=== PATIENT | male | born 1975 | race African-American/Black ===

== ENCOUNTER 2016-07-08 14:05 | Emergency (ER) | payer MEDICAID ==
[~2016-07-08] VITALS: Ht 180.3 cm; Wt 113.4 kg
[~2016-07-08 14:05] MED LIST: AC325T; AC325T PO; ACIDOPHILUS100 MG PO; ALBU2.5V4 IH; ALPR.5T; AMLO1CAP; AMLO1TAB15; ARIP15TA; ARIP15TA PO; ASP81CT PO; BNZ20T; CALC667T2 PO; CETI10TA20 PO; CLN.1T PO; CLOP75TA; CLOT15CR6; CLOT15CR6 TOP; CODE1CAP20; CYCL10TA9; CYCL5TAB11 PO; FLUT9.9S NS; HYDR1CAP2 PO; HYDR50TA76; IRON150C; LACT1CAP45; LANT1000 PO; LISI40TA; LOPE2CAP; LORA0.5T34 PO; LSNP20T PO; MAG-5; MAG-5 PO; METO-354 PO; METO50TA2 PO; MINO10TA; MTP100TCR; PHEN118S12 PO; PRM25T PO; PROP1TAB77; RPN.25T PO; RT-ALBUINH IH; SENSIPAR; SEVE800T7; SODI113P; TOPI100T; TOPI100T PO; TRM50T PO; VENL50TA; VENL50TA PO; [UNRECOGNIZED DRUG - CODE] PO; [UNRECOGNIZED DRUG - CODE] TP; sensipar PO
--- OUTSIDE RECORDS SUMMARY | 2016-07-08 14:11 | XMS REPORT ---
Author Author AUGIE HOWE eClinical[employer] Address Unknown Phone Unavailable Care Team Providers Care Marble Installer Name Role Phone AUGIE HOWE CP Unavailable Allergies, Adverse Reactions, Alerts Substance Reaction Event Type sulfa drugs Info Not Available Drug Allergy Chocolate Info Not Available Non Drug Allergy Problems Problem Type Condition Code Onset Dates Condition Status Assessment Dental examination Z01.20 Active Problem Encounter for dental examination Z01.20 Active Medications Medication Code System Code Instructions Start Date End Date Status Dosage Sodium Bicarbonate [facility] [address]-32 650 MG Orally Three times a day 1 tablet Effexor NDC 0 not defined Ventolin HFA [facility] [address]-93 108 (90 Base) MCG/ACT Inhalation every 4 hrs 2 puffs as needed Flonase NDC 0 not defined Ultram [facility] [address]-34 50 MG Orally every 6 hrs 1 tablet as needed Reglan [facility] [address]-29 10 MG Orally not defined Zestril [facility] [address]-98 20 MG Orally Once a day 1 tablet Proventil NDC 0 not defined Ativan [facility] [address]-08 0.5 MG Orally every 6 hrs 1 tablet as needed Kayexalate [facility] [address]-04 Orally not defined Calcium Acetate (Phos Binder) [facility] [address]-54 667 MG Orally Three times a day 2 tablets with meals Acidophilus [facility] 78312-[address]32 Orally not defined Aspirin Adult Low Dose [facility] [address]-68 81 MG Orally Once a day 1 tablet Abilify [facility] [address]-94 15 MG Orally Once a day 1 tablet Fosrenol [facility] [address]-31 1000 MG Orally Twice a day 1 tablet with meals Topamax [facility] [address]-78 100 MG Orally Twice a day 1 tablet Lopressor [facility] [address]-49 100 MG Orally Twice a day 1 tablet Sensipar [facility] [address]-05 60 MG Orally Once a day 1 tablet after a meal with food ZyrTEC NDC 0 not defined Amoxicillin [facility] [address]-23 500 MG Orally Once a day 4 capsules one time Requip [facility] [address]-88 0.25 MG Orally Once a day 1 tablet 1 to 3 hours before bedtime Procedures Procedure Coding System Code Date Billing Notes on claim CPT-4 EC109 Apr 28, 2015 Results No Known Results Summary Purpose eClinicalWorks Submission
[2016-07-08 14:25] LABS: BASOPHILS # (AUTO) 0.1 10^3/uL (0.0-0.1); BASOPHILS % (AUTO) 1 % (0-10); EOSINOPHILS # (AUTO) 0.4 10^3/uL (0.0-0.3); EOSINOPHILS % (AUTO) 4 % (0-10); LYMPHOCYTES # (AUTO) 1.3 X 10^3 (1.0-4.0); LYMPHOCYTES % (AUTO) 13 % (12-44); MEAN CORPUSCULAR HEMOGLOBIN 27 PG (25-34); MEAN CORPUSCULAR HGB CONC 32 G/DL (32-36); MEAN CORPUSCULAR VOLUME 82 FL (80-99); MEAN PLATELET VOLUME 11.4 FL (7.4-10.4); MONOCYTES % (AUTO) 10 % (0-12); NEUTROPHILS # (AUTO) 7.2 X 10^3 (1.8-7.8); NEUTROPHILS % (AUTO) 72 % (42-75); PLATELET COUNT 312 10^3/uL (130-400); RED BLOOD COUNT 3.66 10^6/uL (4.35-5.85); RED CELL DISTRIBUTION WIDTH 14.9 % (10.0-14.5)
--- NOTE | 2016-07-08 14:34 | ED General ---
General Chief Complaint: Catheter/Drain/Tube Problems Stated Complaint: DIALYSIS SHUNT Nursing Triage Note: PT HERE WITH C/O L UPPER ARM DIALYSIS PORT COMING OUT WHILE COUGHING AND HAVING A HARD TIME GETTING BLEEDING TO STOP. EMS REPORTS APPROX 125ML BLOOD LOSS. PT IS NO LONGER BLEEDING. Nursing Sepsis Screen: No Definite Risk Source of Information: Patient, EMS Exam Limitations: No Limitations History of Present Illness Time Seen by Provider: 14:27 Initial Comments The patient is a 41-year-old black male resident of [place]. He is on chronic renal dialysis. He dialyzed this morning and had returned to the facility. He has had a cough and apparently after a coughing fit developed bleeding from the fistula puncture site. It was said that they had a difficult time controlling the bleeding. They estimated the blood to be as much as 150 mL. On arrival by ambulance there is dried blood on the arm and the dressing but no active bleeding. Timing/Duration: 1 Hour Associated Systoms: Weakness Allergies and Home Medications Allergies Coded Allergies: Milk Products (Unverified Allergy, Mild, 07/12/09) Sulfamethoxazole (Unverified Allergy, Mild, 07/12/09) Trimethoprim (Unverified Allergy, Mild, 07/12/09) NKANo Known Allergies (Verified Allergy, Unknown, 10/01/05) Uncoded Allergies: [id number] (CHOCOLATE FLAVOR) (Allergy, Mild, 07/12/09) Home Medications 120 MG PO DAILY (Reported) Acetaminophen 325 Mg Tab 650 MG PO Q6H PRN PRN (Reported) Albuterol Sulfate 1 Puff Puff 2 PUFF IH TID (Reported) Albuterol Sulfate 0.83 Mg/Ml Solution 0.83 MG IH TID PRN PRN (Reported) Aripiprazole 15 Mg Tab 1 TAB PO DAILY (Reported) DAILY Aspirin 81 Mg Chew 81 MG PO DAILY (Reported) Calcium Acetate 667 Mg Tablet 2,668 MG PO AC (Reported) Calcium Acetate 667 Mg Tablet 1,334 MG PO DAILY (Reported) Cetirizine HCl 10 Mg Tablet 10 MG PO HS PRN PRN ITCHING (Reported) Fluticasone Propionate 9.9 Ml [place].susp 9.9 ML NS PRN (Reported) Lactobacillus Acidophilus 100 Mg Capsule 100 MG PO DAILY (Reported) Lanthanum Carbonate 1,000 Mg Tab.chew 1,000 MG PO TID (Reported) Lisinopril 20 Mg Tab 20 MG PO HS (Reported) Lorazepam 0.5 Mg Tablet 0.5 MG PO BID (Reported) Mag Hydrox/Al Hydrox/Simeth 355 Ml Oral.susp 20 ML PO Q6H PRN PRN (Reported) Menthol/Zinc Oxide 283 Gm Powder 283 GM TP (Reported) Metoclopramide Hcl 10 Mg Tab 1 EACH PO BID (Reported) Metoprolol Tartrate 50 Mg Tablet 50 MG PO DAILY (Reported) Ropinirole Hcl 0.25 Mg Tab #30 1 TAB PO HS (Reported) Sodium Bicarbonate 1 Meq/1 Ml Disp.syrin 650 MG PO BID (Reported) Topiramate 100 Mg Tab 100 MG PO TID (Reported) Tramadol Hcl 50 Mg Tab 50 MG PO BID (Reported) Venlafaxine Hcl 50 Mg Tablet 0.5 EACH PO BID (Reported) Constitutional: see HPI EENTM: no symptoms reported Respiratory: no symptoms reported Cardiovascular: no symptoms reported Gastrointestinal: no symptoms reported Genitourinary: no symptoms reported Musculoskeletal: no symptoms reported Skin: no symptoms reported Psychiatric/Neurological: No Symptoms Reported Hematologic/Lymphatic: No Symptoms Reported Immunological/Allergic: no symptoms reported Past Gblcefv-Rylbhr-Ypcuag Hx Patient Social History Recent Foreign Travel: No Contact w/Someone Who Travel: No Recent Infectious Disease Expo: No Recent Hopitalizations: No Immunizations Up To Date Tetanus Booster (TDap): Less than 5yrs Seasonal Allergies Seasonal Allergies: No Surgeries HX Surgeries: Yes (MULTIPLE SURGERIES TO LEFT ARM FOR DIALYSIS GRAFTS, MOST RECENTLY 09/08/15) Surgeries: Arteriovenous Shunt, Dialysis, Vascular Surgery Respiratory Hx Respiratory Disorders: No Cardiovascular Hx Cardiac Disorders: Yes Cardiac Disorders: Hypertension Neurological Hx Neurological Disorders: Yes Neurological Disorders: Seizure Disorder Reproductive System Hx Reproductive Disorders: No Sexually Transmitted Disease: No HIV/AIDS: No Genitourinary Hx Genitourinary Disorders: Yes Genitourinary Disorders: Renal Failure, Dialysis Gastrointestinal Hx Gastrointestinal Disorders: Yes (GASTROPARESIS?) Musculoskeletal Hx Musculoskeletal Disorders: No Endocrine Hx Endocrine Disorders: Yes Endocrine Disorders: Diabetes, Non-Insulin dep HEENT HX ENT Disorders: No Cancer Hx Cancer: No Psychosocial Hx Psychiatric Problems: Yes (intermittent explosive disorder) Behavioral Health Disorders: Schizophrenia, Violent Behavior Integumentary HX Skin/Integumentary Disorder: No Blood Transfusions Hx Blood Disorders: No Adverse Reaction to a Blood Tr: No Physical Exam Vital Signs Vital Sign - Last 12Hours 07/08/16 14:06 Temp 98.8 Pulse 97 Resp 18 B/P 93/58 Pulse Ox 97 O2 Delivery Room Air Capillary Refill : Less Than 3 Seconds General Appearance: No Apparent Distress WD/WN Eyes: Bilateral Eye Normal Inspection HEENT: Normal ENT Inspection Neck: Normal Inspection Respiratory: Chest Non Tender Lungs Clear Normal Breath Sounds No Accessory Muscle Use No Respiratory Distress Cardiovascular: Regular Rate, Rhythm No Edema No Gallop No JVD No Murmur Normal Peripheral Pulses Gastrointestinal: Normal Bowel Sounds No Organomegaly No Pulsatile Mass Non Tender Soft Comments The dressing was removed and the left upper arm was examined. It appears that he has a more considerable length of fistula than that of which I am accustomed. In the upper pole in a horizontal reach across the upper biceps a small thrombus was noted at which I would interpret to be the puncture site. There is no evidence of bleeding at this time. The dressing itself had blood in it and the ulnar forearm had blood which was dried. Focused Exam Lactic Acid Level Laboratory Tests Test 07/08/16 14:15 Alanine Aminotransferase (ALT/SGPT) 14U/L (0-55) Albumin 3.7G/DL (3.2-4.5) Alkaline Phosphatase 96U/L (40-136) Anion Gap 16MMOL/L (5-14) H Aspartate Amino Transf (AST/SGOT) 15U/L (5-34) BUN/Creatinine Ratio 4 Blood Urea Nitrogen 24MG/DL (7-18) H Calcium Level 8.5MG/DL (8.5-10.1) Carbon Dioxide Level 28MMOL/L (21-32) Chloride Level 93MMOL/L (98-107) L Creatinine 5.89MG/DL (0.60-1.30) H Estimat Glomerular Filtration Rate 13 Glucose Level 92MG/DL (70-105) Potassium Level 2.9MMOL/L (3.6-5.0) L Sodium Level 137MMOL/L (135-145) Total Bilirubin 0.5MG/DL (0.1-1.0) Total Protein 7.8G/DL (6.4-8.2) Progress/Results/Core Measures Results/Orders Lab Results Laboratory Tests Test 07/08/16 14:15 Range/Units Alanine Aminotransferase (ALT/SGPT) 14 0-55 U/L Albumin 3.7 3.2-4.5 G/DL Alkaline Phosphatase 96 40-136 U/L Anion Gap 16 H 5-14 MMOL/L Aspartate Amino Transf (AST/SGOT) 15 5-34 U/L BUN/Creatinine Ratio 4 Basophils # (Auto) 0.1 0.0-0.1 10^3/uL Basophils (%) (Auto) 1 0-10 % Blood Urea Nitrogen 24 H 7-18 MG/DL Calcium Level 8.5 8.5-10.1 MG/DL Carbon Dioxide Level 28 21-32 MMOL/L Chloride Level 93 L 98-107 MMOL/L Creatinine 5.89 H 0.60-1.30 MG/DL Eosinophils # (Auto) 0.4 H 0.0-0.3 10^3/uL Eosinophils (%) (Auto) 4 0-10 % Estimat Glomerular Filtration Rate 13 Glucose Level 92 70-105 MG/DL Hematocrit 30 L 40-54 % Hemoglobin 9.7 L 13.3-17.7 G/DL Lymphocytes # (Auto) 1.3 1.0-4.0 X 10^3 Lymphocytes (%) (Auto) 13 12-44 % Mean Corpuscular Hemoglobin 27 25-34 PG Mean Corpuscular Hemoglobin Concent 32 32-36 G/DL Mean Corpuscular Volume 82 80-99 FL Mean Platelet Volume 11.4 H 7.4-10.4 FL Monocytes # (Auto) 1.0 0.0-1.0 X 10^3 Monocytes (%) (Auto) 10 0-12 % Neutrophils # (Auto) 7.2 1.8-7.8 X 10^3 Neutrophils (%) (Auto) 72 42-75 % Platelet Count 312 130-400 10^3/uL Potassium Level 2.9 L 3.6-5.0 MMOL/L Red Blood Count 3.66 L 4.35-5.85 10^6/uL Red Cell Distribution Width 14.9 H 10.0-14.5 % Sodium Level 137 135-145 MMOL/L Total Bilirubin 0.5 0.1-1.0 MG/DL Total Protein 7.8 6.4-8.2 G/DL White Blood Count 10.0 4.3-11.0 10^3/uL My Orders Orders-SAM SIMON MD Cbc With Automated Diff (07/08/16 14:19) Comprehensive Metabolic Panel (07/08/16 14:19) Chest 1 View, Ap/Pa Only (07/08/16 14:19) Vital Signs/I&O Vital Sign - Last 12Hours 07/08/16 14:06 Temp 98.8 Pulse 97 Resp 18 B/P 93/58 Pulse Ox 97 O2 Delivery Room Air Blood Pressure Mean: 70 Departure Impression Impression: Primary Impression: postdialysis bleeding from fistula puncture site Disposition: HOME, SELF-CARE Condition: Improved Departure-Patient Inst. Decision time for Depature: 15:12 Referrals: LESLIE CARSON MD (PCP/Family) Primary Care Physician Add. Discharge Instructions: All discharge instructions reviewed with patient and/or family. Voiced understanding. If bleeding recurs place a pressure dressing which is to say a gauze pad and either an Roscoe wrap or COBAN for compression SAM SIMON MD Jul 08, 2016 14:34
[2016-07-08 14:43] LABS: ALBUMIN 3.7 G/DL (3.2-4.5); BILIRUBIN,TOTAL 0.5 MG/DL (0.1-1.0); CALCIUM 8.5 MG/DL (8.5-10.1); CREATININE SERUM 5.89 MG/DL (0.60-1.30); POTASSIUM 2.9 MMOL/L (3.6-5.0); TOTAL PROTEIN 7.8 G/DL (6.4-8.2)
--- NOTE | 2016-07-08 14:54 | Diagnostic Imaging Report ---
INDICATION: Cough. Frontal chest obtained at 2:41 p.m. FINDINGS: Heart and mediastinal silhouette are normal in appearance. The lungs are clear. There is no pneumothorax or pleural fluid. IMPRESSION: Negative chest. Dictated by: Dictated on workstation # [id number]
[2016-07-08 15:22] VITALS: BP 93/58
== END 2016-07-08 15:18 | disposition home or self-care (01) ==
LOC: EDUNIT# 14:05 → ER 14:06
DX: T82.838A Hemorrhage due to vascular prosthetic devices, implants and grafts, initial encounter (principal); I12.0 Hypertensive chronic kidney disease with stage 5 chronic kidney disease or end stage renal disease; N18.6 End stage renal disease; Z99.2 Dependence on renal dialysis; E11.9 Type 2 diabetes mellitus without complications; Z79.899 Other long term (current) drug therapy
CPT/HCPCS: 36415; 71010; 80053; 85025; 99285

== ENCOUNTER → 2017-04-05 | Outpatient (CLI) | payer MEDICAID ==
[~2017-04-05] MED LIST changes: +METO50TA15 PO; -METO50TA2 PO
--- NOTE | 2017-04-05 16:47 | Diagnostic Imaging Report ---
Indication: Left great toe injury 3 views of the left great toe show a nondisplaced fracture of the corner of the base of the proximal phalanx on the medial side. The remainder of the foot is unremarkable. Impression: Nondisplaced corner fracture on the medial base of the proximal phalanx of the left big toe. Dictated by: Dictated on workstation # [id number]
== END ==
LOC: RAD 15:55
PROVIDERS: ATTEND Family Medicine
DX: S92.415A Nondisplaced fracture of proximal phalanx of left great toe, initial encounter for closed fracture (principal)
CPT/HCPCS: 73630

== ENCOUNTER 2019-03-05 22:41 | Emergency (ER) | payer MEDICAID ==
[~2019-03-05] VITALS: Ht 172.7 cm; Wt 90.0 kg
--- NOTE | 2019-03-05 22:50 | NUR ---
MULU KOWALSKI BROUGHT [facility] STAFF WORKER TO ROOM AND WHEN TRYING TO ASK QUESTIONS FOR AID IN TRIAGE THE [facility] STAFF WORKER STATES, "I DON'T KNOW ANYTHING, I'M NEW THERE. IS THERE SOMEWHERE I CAN SIT DOWN." THE PATIENTS BELONGINGS CURRENTLY ON CHAIR IN ROOM. [facility] STAFF WORKER NOTIFIED THAT ER STAFF CAN BRING ANOTHER CHAIR IN ROOM AFTER CARE OF PT COMPLETE. CARE WORKER STATES, "UGH, I'LL JUST MOVE HIS STUFF AND SIT HERE."
--- NOTE | 2019-03-05 22:59 | ED General ---
General Stated Complaint: SYNCOPAL EPISODE Source of Information: Patient (SOMEWHAT LIMITED HISTORIAN), EMS History of Present Illness Date Seen by Provider: Mar 05, 2019 Time Seen by Provider: 22:43 Initial Comments PT ARRIVES VIA EMS FROM HOME/ [facility] PT PT HAD UNWITNESSED "SYNCOPAL" EPISODE--VS FALL WITH LOSS OF CONSCIOUSNESS PT STATES HE THINKS HE WAS GOING TO THE BATHROOM, HE WAS FOUND IN THE BATHROOM. LOSS OF CONSCIOUSNESS WAS FOR UNKNOWN LENGTH OF TIME. PT HAS NO RECOLLECTION OF THE EVENT, OR OF THE EVENTS OF TODAY FIRST STATES HE "HURTS ALL OVER" BUT ON DIRECT QUESTIONING AND PALPATION, HE ONLY COMPLAINS OF PAIN TO: --RIGHT POSTERIOR BACK OF HEAD --RIGHT ANKLE --LEFT ANKLE --LEFT TIB-FIB --LEFT KNEE DENIES ANY PAIN TO BACK, OR NECK DENIES ANY PAIN TO HIPS DENIES ANY CHEST OR ABDOMINAL PAIN DENIES ANY NAUSEA/VOMITING DENIES ANY NUMBNESS/ TINGLING ANYWHERE DENIES VISION CHANGES DOES C/O DIZZINESS. PT IS DIABETIC AND IS ON DIALYSIS--NEXT DIALYSIS IS TOMORROW. GETS DIALYSIS M-W-F PT IS LETHARGIC ON ARRIVAL. HAS HISTORY OF SEIZURES NURSE FROM [facility] IS HERE WITH PT PCP: DR. CARSON Allergies and Home Medications Allergies Coded Allergies: Milk Products (Unverified Allergy, Mild, 07/12/09) Sulfamethoxazole (Unverified Allergy, Mild, 07/12/09) Trimethoprim (Unverified Allergy, Mild, 07/12/09) NKANo Known Allergies (Verified Allergy, Unknown, 10/01/05) Uncoded Allergies: [id number] (CHOCOLATE FLAVOR) (Allergy, Mild, 07/12/09) Home Medications Acetaminophen 325 Mg Tab, 650 MG PO Q6H PRN, (Reported) Albuterol Sulfate 1 Puff Puff, 2 PUFF IH TID, (Reported) Albuterol Sulfate 0.83 Mg/Ml Solution, 0.83 MG IH TID PRN, (Reported) Aripiprazole 15 Mg Tab, 1 TAB PO DAILY, (Reported) DAILY Aspirin 81 Mg Chew, 81 MG PO DAILY, (Reported) Calcium Acetate 667 Mg Tablet, 2,668 MG PO AC, (Reported) Calcium Acetate 667 Mg Tablet, 1,334 MG PO DAILY, (Reported) Cetirizine HCl 10 Mg Tablet, 10 MG PO HS PRN for ITCHING, (Reported) Fluticasone Propionate 9.9 Ml Points.susp, 9.9 ML NS PRN, (Reported) Lactobacillus Acidophilus 100 Mg Capsule, 100 MG PO DAILY, (Reported) Lanthanum Carbonate 1,000 Mg Tab.chew, 1,000 MG PO TID, (Reported) Lisinopril 20 Mg Tab, 20 MG PO HS, (Reported) Lorazepam 0.5 Mg Tablet, 0.5 MG PO BID, (Reported) Mag Hydrox/Al Hydrox/Simeth 355 Ml Oral.susp, 20 ML PO Q6H PRN, (Reported) Metoclopramide Hcl 10 Mg Tab, 1 EACH PO BID, (Reported) Metoprolol Tartrate 50 Mg Tablet, 50 MG PO DAILY, (Reported) Ropinirole Hcl 0.25 Mg Tab, 1 TAB PO HS, (Reported) Sodium Bicarbonate 1 Meq/1 Ml Disp.syrin, 650 MG PO BID, (Reported) Topiramate 100 Mg Tab, 100 MG PO TID, (Reported) Tramadol Hcl 50 Mg Tab, 50 MG PO BID, (Reported) Venlafaxine Hcl 50 Mg Tablet, 0.5 EACH PO BID, (Reported) [sensipar] , 120 MG PO DAILY, (Reported) Patient Home Medication List Home Medication List Reviewed: Yes Review of Systems Review of Systems Constitutional: see HPI, dizziness EENTM: no symptoms reported Respiratory: no symptoms reported; No short of breath Cardiovascular: see HPI; No chest pain, No palpitations Gastrointestinal: no symptoms reported; No abdominal pain, No nausea, No vomiting Genitourinary: see HPI (DIALYSIS PT) Musculoskeletal: see HPI; No back pain, No neck pain Skin: no symptoms reported Psychiatric/Neurological: See HPI, Headache; Denies Numbness, Denies Paresthesia, Denies Tingling; Weakness (GENERALIZED) Hematologic/Lymphatic: No Symptoms Reported Immunological/Allergic: no symptoms reported Past Gdlsbpb-Ciatit-Wjcbfv Hx Patient Social History Alcohol Use: Occasionally Uses (IN PAST) Recreational Drug Use: No Smoking Status: Former Smoker (OCCASIONALLY SMOKED IN THE PAST) Type Used: Cigarettes Recent Hopitalizations: No Immunizations Up To Date Tetanus Booster (TDap): Less than 5yrs Seasonal Allergies Seasonal Allergies: No Past Medical History Surgeries: Yes (HAS BILATERAL AV FISTULAS/DILASIS GRAFTS IN UPPER ARMS AND ONE IN LEFT FOREARM; MULTIPLE SURGERIES ON LEFT ARM FOR DIALYSIS A-V GRAFTS; CENTRAL LINES FOR DIALYSIS; LEFT FEMUR FX/ORIF-RAMA) Arteriovenous Shunt, Dialysis, Orthopedic, Vascular Surgery Respiratory: No Cardiac: Yes Hypertension Neurological: Yes Seizure Disorder Reproductive Disorders: No Sexually Transmitted Disease: No HIV/AIDS: No Genitourinary: Yes Renal Failure, Dialysis Gastrointestinal: Yes (? GASTROPARESIS ? ) Musculoskeletal: Yes (LEFT FEMUR FX/ORIF-RAMA) Endocrine: Yes Diabetes, Non-Insulin dep HEENT: No Cancer: No Psychosocial: Yes ("INTERMITTENT EXPLOSIVE DISORDER" ) Schizophrenia, Violent Behavior Integumentary: No Adverse Reaction/Blood Tranf: No Physical Exam Vital Signs Vital Signs - First Documented 03/05/19 22:42 Temp 36.8 Pulse 90 Resp 18 B/P (MAP) 133/92 (106) O2 Delivery High Flow N/C Capillary Refill : Height, Weight, BMI Height: 5'11" Weight: 250lbs. oz. 113.354079si; BMI Method:Stated General Appearance: No Apparent Distress, WD/WN, Other (LETHARGIC/FLAT AFFECT) HEENT: PERRL/EOMI, TMs Normal, Normal ENT Inspection, Pharynx Normal, Other (MILD RAISED CONTUSION TO RIGHT POSTERIOR PARIETAL/OCCIPITAL AREA) Neck: Full Range of Motion, Normal Inspection, Non Tender, Supple Respiratory: Normal Breath Sounds, No Accessory Muscle Use, No Respiratory Distress Cardiovascular: Regular Rate, Rhythm, No Murmur, Normal Peripheral Pulses Gastrointestinal: Non Tender, Soft Back: Normal Inspection, No CVA Tenderness, No Vertebral Tenderness Extremity: Normal Capillary Refill, Pedal Edema (TRACE BILATERALLY), Other (TENDERNESS TO BILATERAL ANKLES, LEFT TIB-FIB, AND LEFT KNEE. ) Neurologic/Psychiatric: Alert, Oriented x3, No Motor/Sensory Deficits, assisted living director II- XII Norm as Tested Skin: Normal Color (PT IS BLACK), Warm/Dry, Other (OTHER THAN MINOR BUMP ON HEAD, NO OTHER EXTERNAL EVIDENCE OF TRAUMA) Progress/Results/Core Measures Suspected Sepsis SIRS Temperature: Pulse: Respiratory Rate: Laboratory Tests 03/06/19 00:50: White Blood Count 13.5H Blood Pressure / Mean: Laboratory Tests 03/06/19 00:50: Creatinine 13.28H, INR Comment 1.0, Platelet Count 255, Total Bilirubin 0.4 Results/Orders Lab Results Laboratory Tests Test 03/05/19 22:55 03/06/19 00:50 Range/Units Glucometer 95 70-110 MG/DL White Blood Count 13.5 H 4.3-11.0 10^3/uL Red Blood Count 4.28 L 4.35-5.85 10^6/uL Hemoglobin 11.6 L 13.3-17.7 G/DL Hematocrit 37 L 40-54 % Mean Corpuscular Volume 85 80-99 FL Mean Corpuscular Hemoglobin 27 25-34 PG Mean Corpuscular Hemoglobin Concent 32 32-36 G/DL Red Cell Distribution Width 18.6 H 10.0-14.5 % Platelet Count 255 130-400 10^3/uL Mean Platelet Volume 10.8 H 7.4-10.4 FL Neutrophils (%) (Auto) 84 H 42-75 % Lymphocytes (%) (Auto) 9 L 12-44 % Monocytes (%) (Auto) 6 0-12 % Eosinophils (%) (Auto) 1 0-10 % Basophils (%) (Auto) 0 0-10 % Neutrophils # (Auto) 11.3 H 1.8-7.8 X 10^3 Lymphocytes # (Auto) 1.2 1.0-4.0 X 10^3 Monocytes # (Auto) 0.8 0.0-1.0 X 10^3 Eosinophils # (Auto) 0.1 0.0-0.3 10^3/uL Basophils # (Auto) 0.0 0.0-0.1 10^3/uL Prothrombin Time 13.9 12.2-14.7 SEC INR Comment 1.0 0.8-1.4 Activated Partial Thromboplast Time 32 24-35 SEC Sodium Level 142 135-145 MMOL/L Potassium Level 5.6 H 3.6-5.0 MMOL/L Chloride Level 96 L 98-107 MMOL/L Carbon Dioxide Level 29 21-32 MMOL/L Anion Gap 17 H 5-14 MMOL/L Blood Urea Nitrogen 81 H 7-18 MG/DL Creatinine 13.28 H 0.60-1.30 MG/DL Estimat Glomerular Filtration Rate 5 BUN/Creatinine Ratio 6 Glucose Level 98 70-105 MG/DL Calcium Level 10.7 H 8.5-10.1 MG/DL Corrected Calcium 10.5 H 8.5-10.1 MG/DL Magnesium Level 2.8 H 1.6-2.4 MG/DL Total Bilirubin 0.4 0.1-1.0 MG/DL Aspartate Amino Transf (AST/SGOT) 8 5-34 U/L Alanine Aminotransferase (ALT/SGPT) 11 0-55 U/L Alkaline Phosphatase 94 40-136 U/L Total Creatine Kinase 138 30-200 U/L Creatine Kinase MB 1.0 <6.6 NG/ML Myoglobin 420.0 H 10.0-92.0 NG/ML Troponin I < 0.028 <0.028 NG/ML Total Protein 8.4 H 6.4-8.2 GM/DL Albumin 4.3 3.2-4.5 GM/DL Serum Alcohol < 10 <10 MG/DL My Orders Orders - DEE ESTRELLA DO Accucheck Stat ONCE (03/05/19 22:42) Ed Iv/Invasive Line Start (03/05/19 22:42) Ekg Tracing (03/05/19 22:42) O2 (03/05/19 22:42) Monitor-Rhythm Ecg Trace Only (03/05/19 22:42) Alcohol (03/05/19 22:42) Cbc With Automated Diff (03/05/19 22:42) Comprehensive Metabolic Panel (03/05/19 22:42) Creatine Kinase (03/05/19 22:42) Creatine Kinase Mb (03/05/19 22:42) Drug Screen Stat (Urine) (03/05/19 22:42) Magnesium (03/05/19 22:42) Protime With Inr (03/05/19 22:42) Partial Thromboplastin Time (03/05/19 22:42) Myoglobin Serum (03/05/19 22:42) Troponin I (03/05/19 22:42) Chest 1 View, Ap/Pa Only (03/05/19 22:42) Femur, Left, 2 Views (03/05/19 22:50) Tibia/Fibula, Left, 2 Views (03/05/19 22:50) Foot, Left, 3 Views (03/05/19 22:50) Foot, Right, 3 View (03/05/19 22:50) Ankle, Right, 3 Views (03/05/19 22:50) Pelvis/Pietro Hips 5> Views (03/05/19 22:50) Ct Head/Cervical Spine Wo (03/06/19 00:31) Vital Signs/I&O 03/05/19 22:42 Temp 36.8 Pulse 90 Resp 18 B/P (MAP) 133/92 (106) O2 Delivery High Flow N/C Capillary Refill : Progress Note : Progress Note SLEPT FOR REMAINDER OF ER STAY NO COMPLAINTS OF ANY KIND NURSE FROM [facility] STATES THAT HE SEEMS FINE TO HER, IS ACTING NORMALLY SHE DOES NOT FEEL LIKE PT WARRANTS TRANSFERRING TO [facility] FOR OBSERVATION, AND FEELS COMFORTABLE TAKING HIM HOME AND WILL KEEP HIS DIALYSIS APPOINTMENT IN THE MORNING. ECG Initial ECG Impression Date: Mar 05, 2019 Initial ECG Impression Time: 22:51 Initial ECG Rate: 89 Initial ECG Rhythm: Normal Sinus Diagnostic Imaging Comments XRAYS--ALL PENDING RADIOLOGIST REVIEW PELVIS/BILATERAL HIPS--NO ACUTE PROCESS, LEFT FEMUR HARDWARE IN PLACE/OLD FRACTURE LEFT FEMUR--NO ACUTE FX; OLD FRACTURE WITH HARDWARE IN PLACE LEFT TIB-FIB--OLD PROXIMAL FIBULAR FRACTURE, NO ACUTE PROCESS LEFT FOOT--NO ACUTE PROCESS RIGHT FOOT AND ANKLE--NO ACUTE PROCESS CT HEAD/CERVICAL SPINE--NO ACUTE PROCESS, PER [facility] VIA FAX AT [phone] Reviewed: Reviewed by Me Departure Impression Primary Impression: SYNCOPE VS FALL WITH POSSIBLE LOSS OF CONSCIOUSNESS VS SEIZURE Additional Impressions: UNWITNESSED EVENT ESRD on dialysis NIDDM HEAD INJURY WITH UNKNOWN LOSS OF CONSCIOUSNESS Disposition: 01 HOME, SELF-CARE Condition: Stable Departure-Patient Inst. Referrals: LESLIE CARSON MD (PCP/Family) Primary Care Physician Patient Instructions: Ankle Sprain (DC), Concussion, Adult (DC), Contusion (DC), Seizures, Adult (DC), Syncope (Fainting) (DC) Add. Discharge Instructions: CONTINUE ALL MEDICATIONS PRESCRIBED KEEP YOUR APPOINTMENT FOR DIALYSIS IN THE MORNING FOLLOW UP WITH YOUR DR IN 1 WEEK IF NO BETTER, RETURN TO ER IF WORSE DEE ESTRELLA DO Mar 05, 2019 22:59 POS
--- NOTE | 2019-03-06 00:50 | NUR ---
PT HAS POOR IV ACCESS, LABS DRAWN BY LAB STAFF.
[2019-03-06 01:01] LABS: BASOPHILS % (AUTO) 0 % (0-10); EOSINOPHILS # (AUTO) 0.1 10^3/uL (0.0-0.3); EOSINOPHILS % (AUTO) 1 % (0-10); HEMATOCRIT 37 % (40-54); HEMOGLOBIN 11.6 G/DL (13.3-17.7); LYMPHOCYTES # (AUTO) 1.2 X 10^3 (1.0-4.0); LYMPHOCYTES % (AUTO) 9 % (12-44); MEAN CORPUSCULAR HEMOGLOBIN 27 PG (25-34); MEAN CORPUSCULAR HGB CONC 32 G/DL (32-36); MEAN CORPUSCULAR VOLUME 85 FL (80-99); MEAN PLATELET VOLUME 10.8 FL (7.4-10.4); MONOCYTES # (AUTO) 0.8 X 10^3 (0.0-1.0); MONOCYTES % (AUTO) 6 % (0-12); NEUTROPHILS # (AUTO) 11.3 X 10^3 (1.8-7.8); NEUTROPHILS % (AUTO) 84 % (42-75); PLATELET COUNT 255 10^3/uL (130-400); RED CELL DISTRIBUTION WIDTH 18.6 % (10.0-14.5); WHITE BLOOD COUNT 13.5 10^3/uL (4.3-11.0)
[2019-03-06 01:11] LABS: PROTHROMBIN TIME PATIENT 13.9 SEC (12.2-14.7)
[2019-03-06 01:20] LABS: ALANINE AMINOTRANSFERASE 11 U/L (0-55); ALBUMIN 4.3 GM/DL (3.2-4.5); ALKALINE PHOSPHATASE 94 U/L (40-136); BILIRUBIN,TOTAL 0.4 MG/DL (0.1-1.0); BUN/CREATININE RATIO 6; CALCIUM 10.7 MG/DL (8.5-10.1); CARBON DIOXIDE 29 MMOL/L (21-32); CHLORIDE 96 MMOL/L (98-107); CREATINE KINASE 138 U/L (30-200); CREATININE SERUM 13.28 MG/DL (0.60-1.30); GFR ESTIMATED 5; GLUCOSE 98 MG/DL (70-105); MAGNESIUM 2.8 MG/DL (1.6-2.4); POTASSIUM 5.6 MMOL/L (3.6-5.0); SODIUM 142 MMOL/L (135-145); TOTAL PROTEIN 8.4 GM/DL (6.4-8.2)
[2019-03-06 02:59] VITALS: BP 129/90
--- NOTE | 2019-03-06 06:35 | Diagnostic Imaging Report ---
CLINICAL INDICATION: Patient status post fall in bathroom unwitnessed. Patient has pain in the back of head. Patient does not remember event. EXAM: Head CT without IV contrast. Axial CT scan of the cervical spine with sagittal and coronal reformations. Auto Exposure Controls were utilized during the CT exam to meet ALARA standards for radiation dose reduction. COMPARISON: Head CT without contrast dated 07/12/2009. X-ray of the cervical spine dated 03/05/2012. FINDINGS: Head CT: There is no evidence of acute cerebral infarct, intracranial hemorrhage, or gross mass effect. The brain parenchymal volume appears appropriate for patient's age. There is normal mercado-white matter distinction. There is no significant midline shift or herniation. There is no evidence of hydrocephalus. The basal cisterns are unremarkable. The skull, extracranial soft tissue, and orbits are unremarkable. The paranasal sinuses are unremarkable. Temporal bones show no significant abnormality. Cervical spine: Limited exam due to patient body habitus obscuring anatomical detail of the mid to lower cervical spine. There is no acute cervical spine fracture or dislocation. There is straightening of the cervical spine posture with mild kyphosis of its upper portion. This finding is nonspecific. There is cervical spine degenerative spurs most pronounced at C5-C6 level. There is mild facet arthropathy. There is no significant bony central canal narrowing. There is severe right C3-C4 neural foramen narrowing due to uncinate spur. The neck soft tissue structures show no significant abnormality. IMPRESSION: 1: Unremarkable CT scan of brain with no evidence of acute intracranial process. 2: There is cervical spine degenerative disease with no acute fracture or dislocation. There is severe right C3-C4 neural foramen narrowing due to uncinate spur. 3: There is straightening and mild kyphosis of the cervical spine posture. I agree with [employer] report. Dictated by: Dictated on workstation # [id number]
--- NOTE | 2019-03-06 07:02 | Diagnostic Imaging Report ---
CLINICAL INDICATION: Patient with fall in bathroom unwitnessed. EXAM: X-ray of the right ankle, 3 views. COMPARISON: None. FINDINGS: There is no acute fracture or dislocation. Ankle mortise and syndesmotic joints are unremarkable. There is hypertrophic calcaneal spurs at the plantar and Achilles attachment. There is adjacent ossicle or spurring adjacent to the cuboid on lateral view. Vascular calcifications are seen. IMPRESSION: 1: There is no acute fracture or dislocation. 2: Degenerative disease of the right ankle. Dictated by: Dictated on workstation # [id number]
--- NOTE | 2019-03-06 07:30 | Diagnostic Imaging Report ---
INDICATION: Fall with chest pain AP view of the chest is obtained. Comparison is made to study of 07/08/2016. Heart size and pulmonary vascularity are within normal limits. There is no pneumothorax or consolidation. No pleural fluid is seen. IMPRESSION: No acute abnormality. Dictated by: Dictated on workstation # [id number]
--- NOTE | 2019-03-06 07:33 | Diagnostic Imaging Report ---
INDICATION: Fall with left foot injury AP, oblique and lateral views of the left foot are obtained. No acute fracture or malalignment is identified. There are atherosclerotic calcifications. There is no abnormal lytic or sclerotic focus. Note is made of posterior and plantar calcaneal spurring. There is radiopaque structure which may represent snap or lead projecting over the lateral aspect of the ankle. IMPRESSION: No acute osseous abnormality. Dictated by: Dictated on workstation # [id number]
--- NOTE | 2019-03-06 07:57 | Diagnostic Imaging Report ---
Clinical indication: Patient fell in bathroom, unwitnessed. Patient complains of bilateral leg pain. Exam: X-ray pelvis, AP view and x-ray of both hips, AP and frog leg views. Comparison: None. Findings: Partially visualized intramedullary nail within the left femur internally fixing a chronic mid left femoral fracture. There is no acute fracture or dislocation involving both hips, pelvis, or visualized portions of the sacrum. There is mild spurring of the bilateral acetabular regions. There is minimal spurring of the right femoral head/neck junction region. There is mild sclerosis of the sacroiliac joints. Impression: 1: There is no acute fracture or dislocation. Dictated by: Dictated on workstation # [id number]
--- NOTE | 2019-03-06 08:01 | Diagnostic Imaging Report ---
CLINICAL INDICATIONS: Patient status post fall bathroom unwitnessed. EXAM: X-ray of the left, 4 views. COMPARISON: None. FINDINGS: There is no acute fracture or dislocation of the left femur. There is intramedullary angela internally fixing a healed mid to distal left femoral diaphyseal fracture with slightly exuberant callus formation noted. There is spurring of the patellofemoral compartment. There is spurring of the left acetabular rim. IMPRESSION: 1: There is no acute fracture or dislocation. 2: Old healed fracture of the left femur with open reduction internal fixation. Dictated by: Dictated on workstation # [id number]
--- NOTE | 2019-03-06 09:00 | Diagnostic Imaging Report ---
INDICATION: Fall with right foot injury AP, oblique and lateral views of the right foot are obtained. No acute fracture or malalignment is identified. There is prominent spurring along the plantar aspect of the hindfoot with posterior calcaneal spurring noted as well. No acute fracture or malalignment is identified. There is no abnormal lytic or sclerotic focus. IMPRESSION: Degenerative spurring without acute abnormality detected. Dictated by: Dictated on workstation # [id number]
--- NOTE | 2019-03-06 09:01 | Diagnostic Imaging Report ---
INDICATION: Fall with left leg injury AP and lateral views of the left lower leg are obtained. FINDINGS: Atherosclerotic calcifications are noted. No acute fracture or dislocation is identified. No abnormal lytic or sclerotic focus is seen, and there is no radiopaque foreign body. IMPRESSION: No acute abnormality. Dictated by: Dictated on workstation # [id number]
== END 2019-03-06 03:00 | disposition home or self-care (01) ==
LOC: EDUNIT# 22:41 → ER 22:42
DX: S06.9X9A Unspecified intracranial injury with loss of consciousness of unspecified duration, initial encounter (principal); E11.22 Type 2 diabetes mellitus with diabetic chronic kidney disease; I12.0 Hypertensive chronic kidney disease with stage 5 chronic kidney disease or end stage renal disease; N18.6 End stage renal disease; G40.909 Epilepsy, unspecified, not intractable, without status epilepticus; F20.9 Schizophrenia, unspecified; F63.81 Intermittent explosive disorder; Z99.2 Dependence on renal dialysis; Z88.2 Allergy status to sulfonamides; Z88.1 Allergy status to other antibiotic agents; Z79.82 Long term (current) use of aspirin; Z79.51 Long term (current) use of inhaled steroids; Z87.891 Personal history of nicotine dependence; W19.XXXA Unspecified fall, initial encounter
CPT/HCPCS: 36415; 70450; 71045; 72125; 73523; 73552; 73590; 73610; 73630; 80053; 80320; 82550; 82553; 82962; 83735; 83874; 84484; 85025; 85610; 85730; 93005; 93041

== ENCOUNTER → 2019-07-02 | Outpatient (CLI) | payer MEDICAID ==
[~2019-07-02] MED LIST changes: -CETI10TA20 PO; +CETI10TA21 PO
--- NOTE | 2019-07-02 14:04 | Diagnostic Imaging Report ---
PROCEDURE: CT abdomen and pelvis without contrast. TECHNIQUE: Multiple contiguous axial images were obtained through the abdomen and pelvis without the use of intravenous contrast. Auto Exposure Controls were utilized during the CT exam to meet ALARA standards for radiation dose reduction. INDICATION: Pre-kidney transplant workup. No prior studies are available for comparison. The lung bases are clear. No discrete liver mass is detected. Gallbladder is unremarkable. No biliary ductal dilatation is seen. The pancreas and spleen are unremarkable. No adrenal mass is detected. Innumerable cortical low densities are noted involving bilateral kidneys consistent with renal cystic disease. No definite calculi are detected. There is no hydronephrosis. Aorta is non-aneurysmal. The small and large bowel loops are normal in caliber. There is no obstruction. Appendix is unremarkable. No free fluid or fluid collection is identified. Bladder is decompressed. The prostate is unremarkable. Postsurgical changes of left hip are identified. IMPRESSION: Bilateral renal cystic disease. No other significant abnormality is detected. Dictated by: Dictated on workstation # [id number]
== END | disposition home or self-care (01) ==
LOC: RAD 05-02 12:19
PROVIDERS: ATTEND Nurse Practitioner
DX: Z01.818 Encounter for other preprocedural examination (principal); N18.5 Chronic kidney disease, stage 5; D63.1 Anemia in chronic kidney disease; N28.1 Cyst of kidney, acquired
CPT/HCPCS: 74176

== ENCOUNTER 2020-12-01 08:48 | Emergency (ER) | payer MEDICAID ==
[~2020-12-01] VITALS: Ht 172.7 cm; Wt 91.2 kg
[~2020-12-01 08:48] MED LIST changes: -CETI10TA21 PO; +CETI10TA49 PO
--- NOTE | 2020-12-01 09:33 | ED GU-Male ---
General Stated Complaint: BLOOD IN URINE Source: patient, caregiver Exam Limitations: no limitations (MAULIK DOZIER,MED STUDENT) History of Present Illness Date Seen by Provider: Dec 01, 2020 Initial Comments Zaid Diaz is a 45yo M with PMH of ESRD who presents with CC of blood in urine. He states that early this morning he had a sudden urge to urinate, and n oted gross blood. It was primarily at the initiation of the stream. He states that he has had one prior episode in the remote past that resolved. He does not recall any trauma to the genitals or abdomen. He associated some lower back pain but claims that this was probably positional; he otherwise denies fever, dysuria, and N/V/D. At baseline he produces urine every 2 days, and is currently on dialysis. 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 He has a remote history of smoking for multiple years, and does not consume alcohol. Timing/Duration: this morning Severity/Quality: other (non-painful) Location: unknown Radiation: none Activities at Onset: other (Urination) Prior Genitourinary Problems: none Associated Symptoms: denies symptoms (MAULIK DOZIER,MED STUDENT) Time Seen by Provider: 08:52 (SUDHAKAR SERRANO MD) Allergies and Home Medications Allergies Coded Allergies: Milk Products (Unverified Allergy, Mild, 07/12/09) Sulfamethoxazole (Unverified Allergy, Mild, 07/12/09) Trimethoprim (Unverified Allergy, Mild, 07/12/09) NKANo Known Allergies (Verified Allergy, Unknown, 10/01/05) Uncoded Allergies: [id number] (CHOCOLATE FLAVOR) (Allergy, Mild, 07/12/09) Home Medications Acetaminophen 325 Mg Tab, 650 MG PO Q6H PRN, (Reported) Albuterol Sulfate 1 Puff Puff, 2 PUFF IH TID, (Reported) Albuterol Sulfate 0.83 Mg/Ml Solution, 0.83 MG IH TID PRN, (Reported) Aripiprazole 15 Mg Tab, 1 TAB PO DAILY, (Reported) DAILY Aspirin 81 Mg Chew, 81 MG PO DAILY, (Reported) Calcium Acetate 667 Mg Tablet, 2,668 MG PO AC, (Reported) Calcium Acetate 667 Mg Tablet, 1,334 MG PO DAILY, (Reported) Cefdinir 300 Mg Capsule, 300 MG PO UD Take after dialysis sessions Prescribed by: SUDHAKAR MAN on 12/01/20 1303 Cetirizine HCl 10 Mg Tablet, 10 MG PO HS PRN for ITCHING, (Reported) Fluticasone Propionate 9.9 Ml Prospect.susp, 9.9 ML NS PRN, (Reported) Lactobacillus Acidophilus 100 Mg Capsule, 100 MG PO DAILY, (Reported) Lanthanum Carbonate 1,000 Mg Tab.chew, 1,000 MG PO TID, (Reported) Lisinopril 20 Mg Tab, 20 MG PO HS, (Reported) Lorazepam 0.5 Mg Tablet, 0.5 MG PO BID, (Reported) Mag Hydrox/Al Hydrox/Simeth 355 Ml Oral.susp, 20 ML PO Q6H PRN, (Reported) Metoclopramide Hcl 10 Mg Tab, 1 EACH PO BID, (Reported) Metoprolol Tartrate 50 Mg Tablet, 50 MG PO DAILY, (Reported) Ropinirole Hcl 0.25 Mg Tab, 1 TAB PO HS, (Reported) Sodium Bicarbonate 1 Meq/1 Ml Disp.syrin, 650 MG PO BID, (Reported) Topiramate 100 Mg Tab, 100 MG PO TID, (Reported) Tramadol Hcl 50 Mg Tab, 50 MG PO BID, (Reported) Venlafaxine Hcl 50 Mg Tablet, 0.5 EACH PO BID, (Reported) [sensipar] , 120 MG PO DAILY, (Reported) Patient Home Medication List Home Medication List Reviewed: Yes (SUDHAKAR SERRANO MD) Review of Systems Review of Systems Constitutional: no symptoms reported EENTM: no symptoms reported Respiratory: no symptoms reported Cardiovascular: no symptoms reported Gastrointestinal: no symptoms reported Genitourinary: hematuria, urgency Musculoskeletal: see HPI Skin: no symptoms reported Psychiatric/Neurological: No Symptoms Reported Endocrine: No Symptoms Reported Hematologic/Lymphatic: No Symptoms Reported (MAULIK DOZIER,MED STUDENT) Past Fbzzohg-Aehfxd-Pohxdl Hx Immunizations Up To Date Tetanus Booster (TDap): Less than 5yrs (MAULIK DOZIER,MED STUDENT) Seasonal Allergies Seasonal Allergies: No (MAULIK DOZIER,MED STUDENT) Past Medical History Surgeries: Yes Arteriovenous Shunt, Dialysis, Orthopedic, Vascular Surgery Respiratory: No Cardiac: Yes Hypertension Neurological: Yes Seizure Disorder Reproductive Disorders: No Sexually Transmitted Disease: No HIV/AIDS: No Genitourinary: Yes Renal Failure, Dialysis Gastrointestinal: Yes (? GASTROPARESIS ? ) Musculoskeletal: Yes (LEFT FEMUR FX/ORIF-RAMA) Endocrine: Yes Diabetes, Non-Insulin dep HEENT: No Cancer: No Psychosocial: Yes ("INTERMITTENT EXPLOSIVE DISORDER" ) Schizophrenia, Violent Behavior Integumentary: No Blood Disorders: No Adverse Reaction/Blood Tranf: No (MAULIK DOZIER,MED STUDENT) Physical Exam Vital Signs Vital Signs - First Documented 12/01/20 08:57 Temp 36.4 Pulse 93 Resp 18 B/P (MAP) 153/90 (111) Pulse Ox 96 O2 Delivery Room Air (SUDHAKAR SERRANO MD) Vital Signs Capillary Refill : (MAULIK DOZIER,MED STUDENT) Height, Weight, BMI Height: 5'11" Weight: 250lbs. oz. 113.478781lh; 30.00 BMI Method:Stated General Appearance: WD/WN, no apparent distress (MAULIK DOZIER,MED STUDENT) Progress/Results/Core Measures Suspected Sepsis SIRS Temperature: Pulse: Respiratory Rate: Blood Pressure / Mean: (MAULIK DOZIER,MED STUDENT) Results/Orders Lab Results Laboratory Tests Test 12/01/20 09:15 12/01/20 11:15 Range/Units White Blood Count 8.9 4.3-11.0 10^3/uL Red Blood Count 3.81 L 4.30-5.52 10^6/uL Hemoglobin 10.8 L 13.3-17.7 g/dL Hematocrit 35 L 40-54 % Mean Corpuscular Volume 93 80-99 fL Mean Corpuscular Hemoglobin 28 25-34 pg Mean Corpuscular Hemoglobin Concent 31 L 32-36 g/dL Red Cell Distribution Width 17.8 H 10.0-14.5 % Platelet Count 250 130-400 10^3/uL Mean Platelet Volume 11.1 9.0-12.2 fL Immature Granulocyte % (Auto) 0 % Neutrophils (%) (Auto) 70 42-75 % Lymphocytes (%) (Auto) 18 12-44 % Monocytes (%) (Auto) 7 0-12 % Eosinophils (%) (Auto) 3 0-10 % Basophils (%) (Auto) 1 0-10 % Neutrophils # (Auto) 6.2 1.8-7.8 10^3/uL Lymphocytes # (Auto) 1.6 1.0-4.0 10^3/uL Monocytes # (Auto) 0.7 0.0-1.0 10^3/uL Eosinophils # (Auto) 0.3 0.0-0.3 10^3/uL Basophils # (Auto) 0.1 0.0-0.1 10^3/uL Immature Granulocyte # (Auto) 0.0 0.0-0.1 10^3/uL Prothrombin Time 13.6 12.2-14.7 SEC INR Comment 1.0 0.8-1.4 Activated Partial Thromboplast Time 31 24-35 SEC Sodium Level 141 135-145 MMOL/L Potassium Level 4.8 3.6-5.0 MMOL/L Chloride Level 99 98-107 MMOL/L Carbon Dioxide Level 30 21-32 MMOL/L Anion Gap 12 5-14 MMOL/L Blood Urea Nitrogen 48 H 7-18 MG/DL Creatinine 9.17 H 0.60-1.30 MG/DL Estimat Glomerular Filtration Rate 8 BUN/Creatinine Ratio 5 Glucose Level 89 70-105 MG/DL Calcium Level 10.8 H 8.5-10.1 MG/DL Urine Color RED H Urine Clarity CLEAR Urine pH 8.5 5-9 Urine Specific Drift 1.015 L 1.016-1.022 Urine Protein 2+ H NEGATIVE Urine Glucose (UA) TRACE H NEGATIVE Urine Ketones NEGATIVE NEGATIVE Urine Nitrite NEGATIVE NEGATIVE Urine Bilirubin 1+ H NEGATIVE Urine Urobilinogen 0.2 < = 1.0 MG/DL Urine Leukocyte Esterase 2+ H NEGATIVE Urine RBC (Auto) 3+ H NEGATIVE Urine RBC TNTC H /HPF Urine WBC 25-50 H /HPF Urine Squamous Epithelial Cells 10-25 H /HPF Urine Crystals NONE /LPF Urine Bacteria LARGE H /HPF Urine Casts NONE /LPF Urine Mucus NEGATIVE /LPF Urine Culture Indicated YES (SUDHAKAR SERRANO MD) My Orders Orders - SUDHAKAR SERRANO MD Ua Culture If Indicated (12/01/20 08:52) Basic Metabolic Panel (12/01/20 09:36) Cbc With Automated Diff (12/01/20 09:36) Protime With Inr (12/01/20 09:36) Partial Thromboplastin Time (12/01/20 09:36) Urine Culture (12/01/20 11:15) Ceftriaxone (Rocephin) (12/01/20 12:45) (SUDHAKAR SERRANO MD) Medications Given in ED Current Medications Medications Dose Ordered Sig/Agata Route Start Time Stop Time Status Last Admin Dose Admin Ceftriaxone Sodium 1000 mg/ Sterile Water 10 ml @ 200 mls/hr ONCE ONCE IV 12/01/20 12:45 12/01/20 12:47 DC 12/01/20 12:54 200 MLS/HR (SUDHAKAR SERRANO MD) Vital Signs/I&O 12/01/20 12/01/20 08:57 13:15 Temp 36.4 36.4 Pulse 93 73 Resp 18 18 B/P (MAP) 153/90 (111) 164/88 (111) Pulse Ox 96 97 O2 Delivery Room Air Room Air (SUDHAKAR SERRANO MD) Vital Signs/I&O Capillary Refill : (MAULIK DOZIER,MED STUDENT) Progress Note : Progress Note Urinalysis demonstrated evidence of urinary tract infection. A dose of Rocephin was administered. See discharge instructions. Cefdinir was prescribed for further antibiotic treatment. (SUDHAKAR SERRANO MD) Departure Impression Primary Impression: Urinary tract infection Qualified Codes: N39.0 - Urinary tract infection, site not specified; R31.9 - Hematuria, unspecified Additional Impression: Hematuria Qualified Codes: R31.0 - Gross hematuria Disposition: 01 HOME, SELF-CARE Condition: Improved Departure-Patient Inst. Decision time for Depature: 12:40 (SUDHAKAR SERRANO MD) Referrals: LESLIE CARSON MD (PCP) Primary Care Physician Patient Instructions: Urinary Tract Infection, Adult (DC), Blood in Urine (Hematuria), Adult ED Add. Discharge Instructions: Take your antibiotic right after each dialysis session until gone. Follow-up with your primary care provider on afternoon or Monday to review urine culture results. This will help ensure you are taking an antibiotic appropriate for the type of bacteria causing your infection. You should also have your urine test repeated after you finish antibiotics to ensure the blood clears. Blood in the urine could be a sign of other significant health problems such as kidney or bladder cancer. We need to be sure the blood clears your urine after the infection is treated. Call with questions or concerns. Return to the ER if you have worsening symptoms or develop new symptoms such as fever. Scripts Cefdinir (Cefdinir) 300 Mg Capsule 300 MG PO UD, #5 CAP 0 Refills Take after dialysis sessions Prov: SUDHAKAR SERRANO MD 12/01/20 Medical Student Attestation and Attending Note: I have personally interviewed and examined this patient along with Justo Ambrose, MS 4. I have reviewed student documentation including history, physical, and assessments. I agree with the documentation except where otherwise noted. Exam: General: Alert, oriented, no acute distress, well developed HEENT: Normocephalic and atraumatic Heart: Regular rate and rhythm without murmur Lungs: Clear to auscultation bilaterally with normal effort Abdomen: Soft, nontender, nondistended, normal bowel sounds Neuropsych: Alert, oriented, no focal deficits Skin: Warm and dry without rashes (SUDHAKAR SERRANO MD) Copy Copies To 1: LESLIE CARSON MD, ALEXANDER E,MED STUDENT Dec 01, 2020 09:33 SUDHAKAR SERRANO MD Dec 01, 2020 13:04
[2020-12-01 09:45] LABS: BASOPHILS # (AUTO) 0.1 10^3/uL (0.0-0.1); BASOPHILS % (AUTO) 1 % (0-10); EOSINOPHILS # (AUTO) 0.3 10^3/uL (0.0-0.3); EOSINOPHILS % (AUTO) 3 % (0-10); HEMATOCRIT 35 % (40-54); HEMOGLOBIN 10.8 g/dL (13.3-17.7); LYMPHOCYTES # (AUTO) 1.6 10^3/uL (1.0-4.0); LYMPHOCYTES % (AUTO) 18 % (12-44); MEAN CORPUSCULAR HEMOGLOBIN 28 pg (25-34); MEAN CORPUSCULAR HGB CONC 31 g/dL (32-36); MEAN CORPUSCULAR VOLUME 93 fL (80-99); MEAN PLATELET VOLUME 11.1 fL (9.0-12.2); MONOCYTES # (AUTO) 0.7 10^3/uL (0.0-1.0); MONOCYTES % (AUTO) 7 % (0-12); NEUTROPHILS # (AUTO) 6.2 10^3/uL (1.8-7.8); NEUTROPHILS % (AUTO) 70 % (42-75); PLATELET COUNT 250 10^3/uL (130-400); WHITE BLOOD COUNT 8.9 10^3/uL (4.3-11.0)
[2020-12-01 09:50] LABS: POTASSIUM 4.8 MMOL/L (3.6-5.0)
[2020-12-01 09:51] LABS: CALCIUM 10.8 MG/DL (8.5-10.1); PROTHROMBIN TIME PATIENT 13.6 SEC (12.2-14.7)
[2020-12-01 09:56] LABS: CREATININE SERUM 9.17 MG/DL (0.60-1.30)
[2020-12-01 11:38] LABS: CLARITY,URINE CLEAR; COLOR,URINE RED; GLUCOSE, URINE (UA) TRACE (NEGATIVE); KETONES,URINE NEGATIVE (NEGATIVE); LEUKOCYTE ESTERASE ,URINE 2+ (NEGATIVE); NITRITE,URINE NEGATIVE (NEGATIVE); PH,URINE 8.5 (5-9); PROTEIN,URINE 2+ (NEGATIVE)
[2020-12-01 11:55] LABS: BACTERIA,URINE LARGE /HPF; RBC,URINE TNTC /HPF; WBC,URINE 25-50 /HPF
[2020-12-01 11:57] LABS: BILIRUBIN,URINE 1+ (NEGATIVE)
[2020-12-01] MEDS ORDERED: cefTRIAXone 1,000 MG in WATER (STERILE) FOR INJECTION 10 ML IV ONE (12:45)
[2020-12-01] MEDS ORDERED: CEFD300C3 PO (13:03)
[2020-12-01 13:15] VITALS: BP 164/88
== END 2020-12-01 13:15 | disposition home or self-care (01) ==
LOC: EDUNIT# 08:48 → ER 08:50
DX: N39.0 Urinary tract infection, site not specified (principal); R31.9 Hematuria, unspecified; I10 Essential (primary) hypertension; G40.909 Epilepsy, unspecified, not intractable, without status epilepticus; E11.9 Type 2 diabetes mellitus without complications; F20.9 Schizophrenia, unspecified; Z79.82 Long term (current) use of aspirin; Z79.899 Other long term (current) drug therapy
CPT/HCPCS: 36415; 80048; 81000; 85025; 85610; 85730; 87088

== ENCOUNTER → 2021-01-21 | Outpatient (CLI) | payer MEDICAID ==
[~2021-01-21] MED LIST changes: +CEFD300C3 PO
== END ==
LOC: CARD 10:39
PROVIDERS: ATTEND Internal Medicine Cardiovascular Disease
DX: I51.7 Cardiomegaly (principal)
CPT/HCPCS: 93306

== ENCOUNTER → 2021-02-04 | Outpatient (CLI) | payer MEDICAID ==
[~2021-02-04] VITALS: Ht 172 cm; Wt 105.0 kg
[~2021-02-04] MED LIST changes: +CATHETER FLUSH 10 ML SYR IV PRN; +REGADENOSON 0.4 MG/5 ML SYR (LEXISCAN) IV ONE
[2021-02-04 13:00] VITALS: BP 115/67
--- NOTE | 2021-02-04 16:29 | NUCLEAR STRESS TEST ---
REGADENOSON NUCLEAR STRESS Date of procedure: 02/04/2021. Primary care provider: Yessi Castillo MD Admitting physician: Demian Flores Jr., MD. INDICATION: Abnormal electrocardiogram. BASELINE ELECTROCARDIOGRAM: Sinus rhythm with borderline right axis deviation at 93 degrees STRESS TEST PROCEDURE: The patient was administered 0.4 mg of intravenous Re gadenoson. The resting heart rate was 83 bpm and the peak heart rate was 112 bpm. The resting blood pressure was 115/67 mmHg and the minimum blood pressure was 115/67 mmHg. This represents a normal heart rate and a blunted blood pressure response to Regadenoson. The test was stopped due to the protocol. There was no chest discomfort during the test. There were no arrhythmias during the test. There were no significant stress induced electrocardiogram changes. NUCLEAR PROCEDURE: The patient was administered 10.7 mCi of intravenous technetium 99m Tetrofosmin at rest for the rest images. The patient was subsequently administered 30.6 mCi of intravenous technetium 99m Tetrofosmin at peak stress for the stress images. Following an appropriate wait after each injection, imaging was obtained. The images were subsequently processed and reformatted in the usual views. Gated imaging was obtained. The image quality was adequate but with some degree of gastrointestinal as well as vertical motion artifact. CT attenuation correction was used as a adjunct to standard imaging. Both the corrected and uncorrected images were reviewed for interpretation. NUCLEAR RESULTS: There was normal myocardial perfusion in all segments without evidence of infarction or ischemia. There was normal left ventricular chamber size with an end-diastolic volume of 59 mL and an end-systolic volume of 13 mL. There was no evidence of transient ischemic dilatation. The TID ratio was 1.15. There was normal wall motion in all segments with a calculated ejection fraction of 78%. IMPRESSION: 1. Normal heart rate and a blunted blood pressure response to regadenoson. 2. There was no chest discomfort, arrhythmias, or electrocardiogram changes during the test. 3. There was normal myocardial perfusion in all segments without evidence of infarction or ischemia. 4. There was normal wall motion in all segments with a calculated ejection fraction of 78%. Certain portions of this document may have been dictated utilizing voice recognition technology. Inherent to this technology, typographical and grammatical errors may exist. As much as I am diligent to identify and correct these mistakes, some errors may remain in the document. DEMIAN FLORES JR, MD Feb 04, 2021 16:29
== END ==
LOC: CARD 11:41
PROVIDERS: ATTEND Internal Medicine Cardiovascular Disease
DX: R94.31 Abnormal electrocardiogram [ECG] [EKG] (principal)
CPT/HCPCS: 78452; 93017; A9502

== ENCOUNTER 2021-05-09 21:19 | Emergency (ER) | payer MEDICAID ==
[~2021-05-09 21:19] MED LIST changes: -CATHETER FLUSH 10 ML SYR IV PRN; -REGADENOSON 0.4 MG/5 ML SYR (LEXISCAN) IV ONE
--- NOTE | 2021-05-09 21:44 | ED Cough/URI ---
General Chief Complaint: COVID19 Suspect/Confirmed Stated Complaint: COVID+ History of Present Illness Date Seen by Provider: May 09, 2021 Time Seen by Provider: 21:20 Initial Comments 46-year-old -[place]aj[place] male presents via EMS from [place] for COVID. His test was positive at 1900 tonight. Patient states he has had malaise, myalgias and cough for the last 3 to 4 days. He has received the vaccine for COVID. He gets dialysis 3 days a week. He reports no taste or smell and poor appetite. He denies any fevers. He has received Robitussin for the coughing. He reports chest burning, with coughing and denies chest pain. He had recent cardiac work up with Dr. Flores, after abnormal EKG. Normal stress test. No vomiting or diarrhea. . Timing/Duration: this evening, intermittent Severity/Quality: mild, productive cough Prior Episodes/Possible Cause: no prior episodes Modifying Factors: Improves With Rest Associated Symptoms: cough, muscle aches, nasal congestion, sinus infection Allergies and Home Medications Allergies Coded Allergies: Milk Containing Products (Unverified Allergy, Mild, 07/12/09) sulfamethoxazole (Unverified Allergy, Mild, 07/12/09) trimethoprim (Unverified Allergy, Mild, 07/12/09) NKANo Known Allergies (Verified Allergy, Unknown, 10/01/05) Uncoded Allergies: [id number] (CHOCOLATE FLAVOR) (Allergy, Mild, 07/12/09) Patient Home Medication List Home Medication List Reviewed: Yes Acetaminophen (Tylenol Tablet) 325 Mg Tab, 650 MG PO Q6H PRN, (Reported) Entered as Reported by: ANNA PORTILLO on 10/24/121948 Albuterol Sulfate (Ventolin Hfa) 1 Puff Puff, 2 PUFF IH TID, (Reported) Entered as Reported by: ANNA PORTILLO on 10/24/121948 Albuterol Sulfate (Proventil) 0.83 Mg/Ml Solution, 0.83 MG IH TID PRN, (Reported) Entered as Reported by: ANNA PORTILLO on 10/24/121948 Aripiprazole (Abilify 15 Mg) 15 Mg Tab, 1 TAB PO DAILY, (Reported) Entered as Reported by: ANNA PORTILLO on 10/24/121948 Aspirin (Aspirin 81 Mg Chew Tab) 81 Mg Chew, 81 MG PO DAILY, (Reported) Entered as Reported by: ANNA PORTILLO on 10/24/121948 Calcium Acetate (Phoslo) 667 Mg Tablet, 2,668 MG PO AC, (Reported) Entered as Reported by: ANNA PORTILLO on 10/24/121948 Calcium Acetate (Phoslo) 667 Mg Tablet, 1,334 MG PO DAILY, (Reported) Entered as Reported by: ANNA PORTILLO on 10/24/121948 Cefdinir (Cefdinir) 300 Mg Capsule, 300 MG PO UD Prescribed by: SUDHAKAR MAN on 12/01/20 1303 Cetirizine HCl (Zyrtec) 10 Mg Tablet, 10 MG PO HS PRN for ITCHING, (Reported) Entered as Reported by: ANGY ANNA on 09/12/15337 Fluticasone Propionate (Flonase Allergy Relief) 9.9 Ml [place].susp, 9.9 ML NS PRN, (Reported) Entered as Reported by: ANGY ANNA on 09/12/15337 Lactobacillus Acidophilus (Acidophilus) 100 Mg Capsule, 100 MG PO DAILY, (Reported) Entered as Reported by: ANNA PORTILLO on 10/24/121948 Lanthanum Carbonate (Fosrenol) 1,000 Mg Tab.chew, 1,000 MG PO TID, (Reported) Entered as Reported by: ANGY ANNA on 09/12/15337 Lisinopril (Zestril) 20 Mg Tab, 20 MG PO HS, (Reported) Entered as Reported by: ANNA PORTILLO on 10/24/121948 Lorazepam (Ativan) 0.5 Mg Tablet, 0.5 MG PO BID, (Reported) Entered as Reported by: ANNA PORTILLO on 10/24/121948 Mag Hydrox/Al Hydrox/Simeth (Mylanta Liquid) 355 Ml Oral.susp, 20 ML PO Q6H PRN, (Reported) Entered as Reported by: ANNA PORTILLO on 10/24/121948 Menthol/Zinc Oxide (Gold Dang Medicated Body Powdr) 283 Gm Powder, 283 GM TP, (Reported) Entered as Reported by: ANNA PORTILLO on 10/24/121948 Metoclopramide Hcl (Reglan 10 Mg Tab) 10 Mg Tab, 1 EACH PO BID, (Reported) Entered as Reported by: ANNA PORTILLO on 10/24/121948 Metoprolol Tartrate (Metoprolol Tartrate) 50 Mg Tablet, 50 MG PO DAILY, (Reported) Entered as Reported by: ANGY ANNA on 09/12/15337 Ropinirole Hcl (Requip) 0.25 Mg Tab, 1 TAB PO HS, (Reported) Entered as Reported by: ANNA PORTILLO on 10/24/121948 Sodium Bicarbonate (Sodium Bicarbonate) 1 Meq/1 Ml Disp.syrin, 650 MG PO BID, (Reported) Entered as Reported by: ANNA PORTILLO on 10/24/121948 Topiramate (Topamax 100 Mg) 100 Mg Tab, 100 MG PO TID, (Reported) Entered as Reported by: ANNA PORTILLO on 10/24/121948 Tramadol Hcl (Ultram) 50 Mg Tab, 50 MG PO BID, (Reported) Entered as Reported by: ANNA PORTILLO on 10/24/121948 Venlafaxine Hcl (Effexor) 50 Mg Tablet, 0.5 EACH PO BID, (Reported) Entered as Reported by: ANNA PORTILLO on 10/24/121948 [sensipar] , 120 MG PO DAILY, (Reported) Entered as Reported by: ANNA PORTILLO on 10/24/121948 Review of Systems Review of Systems Constitutional: see HPI, malaise, weakness EENTM: see HPI, no symptoms reported Respiratory: see HPI, cough, phlegm; No short of breath Cardiovascular: no symptoms reported, see HPI Gastrointestinal: no symptoms reported, see HPI; No abdominal pain, No constipation, No diarrhea; loss of appetite; No nausea, No vomiting Psychiatric/Neurological: No Symptoms Reported, See HPI; Denies Headache All Other Systems Reviewed Negative Unless Noted: Yes Past Prxviak-Mgijam-Reyleg Hx Patient Social History Tobacco Use?: No Use of E-Cig and/or Vaping dev: No Substance use?: No Alcohol Use?: No Pt feels they are or have been: No Immunizations Up To Date Tetanus Booster (TDap): Less than 5yrs Influenza Vaccine Up-to-Date: Yes; Up-to-Date COVID19 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 GASTROPARESIS ? ) Musculoskeletal: Yes (LEFT FEMUR FX/ORIF-RAMA) Endocrine: Yes Diabetes, Non-Insulin dep HEENT: No Cancer: No Psychosocial: Yes ("INTERMITTENT EXPLOSIVE DISORDER" ) Schizophrenia, Violent Behavior Integumentary: No Blood Disorders: No Adverse Reaction/Blood Tranf: No Family Medical History Reviewed Nursing Family Hx Physical Exam Vital Signs - First Documented Capillary Refill : Less Than 3 Seconds Height: 5'11" Weight: 250lbs. oz. 113.082141wr; 35.49 BMI Method:Stated General Appearance: WD/WN, no apparent distress HEENT: PERRL/EOMI, normal ENT inspection, TMs normal, pharynx normal Neck: non-tender, full range of motion, supple, normal inspection Respiratory: chest non-tender, lungs clear, normal breath sounds, no respiratory distress, no accessory muscle use Cardiovascular: normal peripheral pulses, regular rate, rhythm, no edema, no murmur Gastrointestinal: normal bowel sounds, non tender, soft Extremities: normal range of motion, non-tender, normal inspection, no pedal edema, no calf tenderness, normal capillary refill Neurologic/Psychiatric: no motor/sensory deficits, alert, normal mood/affect Skin: normal color, warm/dry Progress/Results/Core Measures Suspected Sepsis SIRS Temperature: Pulse: Respiratory Rate: Laboratory Tests 05/09/21 22:02: White Blood Count 7.2 Blood Pressure / Mean: Laboratory Tests 05/09/21 22:02: Platelet Count 186 Results/Orders Lab Results Laboratory Tests Test 05/09/21 21:48 05/09/21 22:02 Range/Units Influenza Type A Antigen NEGATIVE NEGATIVE Influenza Type B Antigen NEGATIVE NEGATIVE White Blood Count 7.2 4.3-11.0 10^3/uL Red Blood Count 3.43 L 4.30-5.52 10^6/uL Hemoglobin 9.8 L 13.3-17.7 g/dL Hematocrit 30 L 40-54 % Mean Corpuscular Volume 88 80-99 fL Mean Corpuscular Hemoglobin 29 25-34 pg Mean Corpuscular Hemoglobin Concent 33 32-36 g/dL Red Cell Distribution Width 15.0 H 10.0-14.5 % Platelet Count 186 130-400 10^3/uL Mean Platelet Volume 11.1 9.0-12.2 fL Immature Granulocyte % (Auto) 0 % Neutrophils (%) (Auto) 68 42-75 % Lymphocytes (%) (Auto) 16 12-44 % Monocytes (%) (Auto) 11 0-12 % Eosinophils (%) (Auto) 4 0-10 % Basophils (%) (Auto) 1 0-10 % Neutrophils # (Auto) 4.9 1.8-7.8 10^3/uL Lymphocytes # (Auto) 1.1 1.0-4.0 10^3/uL Monocytes # (Auto) 0.8 0.0-1.0 10^3/uL Eosinophils # (Auto) 0.3 0.0-0.3 10^3/uL Basophils # (Auto) 0.0 0.0-0.1 10^3/uL Immature Granulocyte # (Auto) 0.0 0.0-0.1 10^3/uL Sodium Level 139 135-145 MMOL/L Potassium Level 4.7 3.6-5.0 MMOL/L Chloride Level 100 98-107 MMOL/L Carbon Dioxide Level 21 21-32 MMOL/L Anion Gap 18 H 5-14 MMOL/L Glucose Level 94 70-105 MG/DL Calcium Level 9.5 8.5-10.1 MG/DL Corrected Calcium 9.7 8.5-10.1 MG/DL Total Protein 7.3 6.4-8.2 GM/DL Albumin 3.7 3.2-4.5 GM/DL My Orders Orders - ELAYNE ROBERTSON Cbc With Automated Diff (05/09/21 21:36) Comprehensive Metabolic Panel (05/09/21 21:36) Procalcitonin (Pct) (05/09/21 21:36) Hs C Reactive Protein (05/09/21 21:36) Erythrocyte Sedimentation Rate (05/09/21 21:36) LDH (05/09/21 21:36) Covid-19 External Lab Results (05/09/21 21:36) Ed Iv/Invasive Line Start (05/09/21 21:36) Chest 1 View, Ap/Pa Only (05/09/21 21:36) Troponin I [place] (05/09/21 21:36) Influenza A & B Antigens (05/09/21 21:48) Vital Signs/I&O 05/09/21 05/09/21 21:20 21:20 Temp 36.8 Pulse 89 Resp 16 B/P (MAP) 129/92 (104) Pulse Ox 97 O2 Delivery Room Air Room Air Capillary Refill : Less Than 3 Seconds Progress Note : Time: 21:20 Progress Note Patient seen and evaluated, will obtain EKG, labs, influenza swab. Vital signs stable, SaO2 96% or higher on room air. No tachycardia or hypotension. 2200 patient continues to have no complaints. Mild cough. No nausea or vomiting. 0 discharge instructions and return precautions reviewed with the patient. Called [place] staff, updated with visit information. They will come get him. ECG Initial ECG Impression Date: May 09, 2021 Initial ECG Impression Time: 21:14 Initial ECG Rate: 86 Initial ECG Rhythm: Normal Sinus Initial ECG Intervals: Normal Initial ECG Intervals IL 157, QRSD 99, QT 378, QTc 452. [place] P 43, QRS 33, T 42. Initial ECG Impression: Normal Initial ECG Comparisson: Unchanged Diagnostic Imaging Diagonstic Imaging: Xray Plain Films/CT/US/NM/MRI: chest Comments NAME: OMARI MILLIGAN [facility] REC#: [id number] PT STATUS: REG ER : 1975 PHYSICIAN: ELAYNE ROBERTSON ADMIT DATE: 05/09/21/ER Draft Date of Exam:05/09/21 CHEST 1 VIEW, AP/PA ONLY INDICATION: Cough. COMPARISON: 03/05/2019. TECHNIQUE: Single radiograph of the chest dated May 09, 2021. FINDINGS: The cardiac silhouette is mildly enlarged, though stable. No significant pulmonary vascular congestion. Minimal bibasilar interstitial opacities. No significant pleural effusion. No pneumothorax. Multiple age indeterminate posterior left-sided rib fractures, particularly involving the 5th through 7th ribs. IMPRESSION: 1. Minimal bibasilar atelectasis and/or pneumonitis. 2. Stable mild cardiomegaly without pulmonary vascular congestion. 3. Age indeterminate posterior left 5th through 7th rib fractures. These are favored to be chronic in nature. Recommend correlation for focal pain at this location. Dictated on workstation # [id number] Dict: 05/09/212222 Trans: 05/09/212225 [facility] [id number] Interpreted by: HUDSON TATUM MD Electronically signed by Reviewed: Reviewed by Me (no pain over left ribs 5-7th where possible fx. ) Departure Impression Primary Impression: COVID-19 Additional Impressions: Kidney failure Qualified Codes: N19 - Unspecified kidney failure Dialysis patient Disposition: HOME, SELF-CARE Condition: Stable Departure-Patient Inst. Decision time for Depature: 22:30 Referrals: LESLIE CARSON MD (PCP) Primary Care Physician Patient Instructions: Kidney Failure (DC), COVID-19 (DC) Add. Discharge Instructions: Drink water, as allowed by Kidney restrictions. Continue Dialysis, as normal routine. Use inhaler 2 puffs every 4 hours. Walk for 5 to 10 minutes every hour while awake and take deep breaths. Take aspirin 81 mg once daily. Take a multivitamin with vitamin C, D and zinc. Call your primary care provider if your symptoms are not improving or worsen. Sleep on your stomach. Alternate between Tylenol 650 mg and ibuprofen 600 mg every 4 hours as needed for fever or general discomfort Continue all normal home medications. Maintain COVID quarantine, per [facility] guidelines. Return to emergency department for new, urgent healthcare needs. All discharge instructions reviewed with patient and/or family. Voiced understanding. ELAYNE ROBERTSON May 09, 2021 21:44
[2021-05-09] MEDS ORDERED: NS (IVPB) 250 ML IV ONE (21:45)
[2021-05-09 22:17] LABS: BASOPHILS % (AUTO) 1 % (0-10); EOSINOPHILS # (AUTO) 0.3 10^3/uL (0.0-0.3); EOSINOPHILS % (AUTO) 4 % (0-10); HEMATOCRIT 30 % (40-54); HEMOGLOBIN 9.8 g/dL (13.3-17.7); LYMPHOCYTES # (AUTO) 1.1 10^3/uL (1.0-4.0); LYMPHOCYTES % (AUTO) 16 % (12-44); MEAN CORPUSCULAR HEMOGLOBIN 29 pg (25-34); MEAN CORPUSCULAR HGB CONC 33 g/dL (32-36); MEAN CORPUSCULAR VOLUME 88 fL (80-99); MEAN PLATELET VOLUME 11.1 fL (9.0-12.2); MONOCYTES # (AUTO) 0.8 10^3/uL (0.0-1.0); MONOCYTES % (AUTO) 11 % (0-12); NEUTROPHILS # (AUTO) 4.9 10^3/uL (1.8-7.8); NEUTROPHILS % (AUTO) 68 % (42-75); PLATELET COUNT 186 10^3/uL (130-400); WHITE BLOOD COUNT 7.2 10^3/uL (4.3-11.0)
--- NOTE | 2021-05-09 22:26 | Diagnostic Imaging Report ---
INDICATION: Cough. COMPARISON: 03/05/2019. TECHNIQUE: Single radiograph of the chest dated May 09, 2021. FINDINGS: The cardiac silhouette is mildly enlarged, though stable. No significant pulmonary vascular congestion. Minimal bibasilar interstitial opacities. No significant pleural effusion. No pneumothorax. Multiple age indeterminate posterior left-sided rib fractures, particularly involving the 5th through 7th ribs. IMPRESSION: 1. Minimal bibasilar atelectasis and/or pneumonitis. 2. Stable mild cardiomegaly without pulmonary vascular congestion. 3. Age indeterminate posterior left 5th through 7th rib fractures. These are favored to be chronic in nature. Recommend correlation for focal pain at this location. Dictated by: Dictated on workstation # [id number]
[2021-05-09 22:28] LABS: ALBUMIN 3.7 GM/DL (3.2-4.5); CHLORIDE 100 MMOL/L (98-107); POTASSIUM 4.7 MMOL/L (3.6-5.0); SODIUM 139 MMOL/L (135-145)
[2021-05-09 22:29] LABS: CALCIUM 9.5 MG/DL (8.5-10.1)
[2021-05-09 22:31] LABS: GLUCOSE 94 MG/DL (70-105); TOTAL PROTEIN 7.3 GM/DL (6.4-8.2)
[2021-05-09 22:32] LABS: BILIRUBIN,TOTAL 0.3 MG/DL (0.1-1.0); CARBON DIOXIDE 21 MMOL/L (21-32)
[2021-05-09 22:34] LABS: ALKALINE PHOSPHATASE 124 U/L (40-136); CREATININE SERUM 13.06 MG/DL (0.60-1.30); GFR ESTIMATED 4
[2021-05-09 22:35] LABS: BUN/CREATININE RATIO 5
[2021-05-09 22:37] LABS: ALANINE AMINOTRANSFERASE 15 U/L (0-55)
[2021-05-09 22:44] LABS: ERYTHROCYTE SEDIMENTATION RATE 39 MM/HR (0-15)
[2021-05-09 23:16] VITALS: BP 129/92
== END 2021-05-09 23:42 | disposition home or self-care (01) ==
LOC: EDUNIT# 21:19 → ER 21:20
DX: U07.1 COVID-19 (principal); E11.22 Type 2 diabetes mellitus with diabetic chronic kidney disease; N18.6 End stage renal disease; I12.0 Hypertensive chronic kidney disease with stage 5 chronic kidney disease or end stage renal disease; G40.909 Epilepsy, unspecified, not intractable, without status epilepticus; F20.9 Schizophrenia, unspecified; Z79.899 Other long term (current) drug therapy; Z79.82 Long term (current) use of aspirin
CPT/HCPCS: 36415; 71045; 80053; 83615; 84145; 84484; 85025; 85652; 86141; 87804; 93005

== ENCOUNTER → 2022-01-04 | Outpatient (CLI) | payer MEDICAID ==
--- NOTE | 2022-01-04 15:01 | Diagnostic Imaging Report ---
INDICATION: Left ankle pain. EXAMINATION: Left ankle 01/04/2022. FINDINGS: There is a lucency within the distal lateral malleolus suspicious for nondisplaced fracture. Followup is recommended as on some views this appears to be some superimposed upon the tibia limiting its violation. The remaining osseous structures intact. Ankle mortise appears preserved. There is mild soft tissue swelling laterally. Atherosclerotic disease incidentally noted. IMPRESSION: 1. Suspected nondisplaced fracture of the distal fibula. Followup recommended. Dictated by: Dictated on workstation # [id number]
== END ==
LOC: RAD 11:10
PROVIDERS: ATTEND Family Medicine
DX: M25.572 Pain in left ankle and joints of left foot (principal)
CPT/HCPCS: 73610

== ENCOUNTER → 2022-01-20 | Outpatient (CLI) | payer MEDICAID ==
--- NOTE | 2022-01-20 15:12 | Diagnostic Imaging Report ---
INDICATION: Left fibular fracture AP, oblique and lateral views of left ankle are obtained. Comparison is made to study of 01/04/2022. The oblique fracture through the distal fibular shaft is again identified. There does appear to be mild periosteal reaction and callus. There is also increasing periosteal reaction along the lateral distal tibia which may be related to syndesmotic injury. Hindfoot morphology is stable with posterior and plantar calcaneal enthesophytes. There is suggestion of pes planus. IMPRESSION: Probable subacute distal fibular fracture and syndesmotic injury with developing callus. No new abnormality or significant adverse change is seen. Dictated by: Dictated on workstation # [id number]
== END ==
LOC: RAD 14:14
PROVIDERS: ATTEND Family Medicine
DX: S82.832D Other fracture of upper and lower end of left fibula, subsequent encounter for closed fracture with routine healing (principal); X58.XXXD Exposure to other specified factors, subsequent encounter
CPT/HCPCS: 73610

== ENCOUNTER 2022-03-22 11:26 | Emergency (ER) | payer MEDICAID ==
[~2022-03-22] VITALS: Ht 175 cm; Wt 96.0 kg
[2022-03-22] MEDS ORDERED: fentaNYL INJ 100 MCG/2 ML AMP IVP ONE ×2 (12:15→14:15)
--- NOTE | 2022-03-22 12:20 | ED Abdominal Pain ---
General Chief Complaint: Abdominal/GI Problems Stated Complaint: RLQ ABD PAIN Nursing Triage Note: ARRIVED VIA WC TO ROOM 07 WITH COMPLAINTS OF RLQ PAIN N/V/D STARTING LAST WEEK. DR CHOW ORDERED A CT BUT NO PRE AUTH SO HE WAS TOLD TO COME TO THE ER. Source of Information: Patient Exam Limitations: No Limitations History of Present Illness Date Seen by Provider: Mar 22, 2022 Time Seen by Provider: 11:45 Initial Comments This is a 46-year-old male from [place] who has a history of end-stage renal disease and is on hemodialysis. He was referred for acute appendicitis work-up by his primary care provider. He had outpatient labs ordered and was sent to the ER for further evaluation. He does dialysis Monday, Monday, Monday. He is currently on the transplant list and has a follow-up appointment with BRANDIE in 2 days. Describes pain as sharp, stabbing and constant. Has been present for the past couple days. He did drink a egg nog over the weekend and is lactose intolerant, was unsure if this was any contributing factors. No fever, cough, shortness of breath, chest pain. Allergies and Home Medications Allergies Coded Allergies: Milk Containing Products (Unverified Allergy, Mild, 07/12/09) sulfamethoxazole (Unverified Allergy, Mild, 07/12/09) trimethoprim (Unverified Allergy, Mild, 07/12/09) Uncoded Allergies: [id number] (CHOCOLATE FLAVOR) (Allergy, Mild, 07/12/09) Patient Home Medication List Home Medication List Reviewed: Yes Acetaminophen (Tylenol Tablet) 325 Mg Tab, 650 MG PO Q6H PRN, (Reported) Entered as Reported by: ANNA PORTILLO on 10/24/121948 Albuterol Sulfate (Ventolin Hfa) 1 Puff Puff, 2 PUFF IH TID, (Reported) Entered as Reported by: ANNA PORTILLO on 10/24/121948 Albuterol Sulfate (Proventil) 0.83 Mg/Ml Solution, 0.83 MG IH TID PRN, (Reported) Entered as Reported by: ANNA PORTILLO on 10/24/121948 Aripiprazole (Abilify 15 Mg) 15 Mg Tab, 1 TAB PO DAILY, (Reported) Entered as Reported by: ANNA PORTILLO on 10/24/121948 Aspirin (Aspirin 81 Mg Chew Tab) 81 Mg Chew, 81 MG PO DAILY, (Reported) Entered as Reported by: ANNA PORTILLO on 10/24/121948 Calcium Acetate (Phoslo) 667 Mg Tablet, 2,668 MG PO AC, (Reported) Entered as Reported by: ANNA PORTILLO on 10/24/121948 Calcium Acetate (Phoslo) 667 Mg Tablet, 1,334 MG PO DAILY, (Reported) Entered as Reported by: ANNA PORTILLO on 10/24/121948 Cefdinir (Cefdinir) 300 Mg Capsule, 300 MG PO UD Prescribed by: SUDHAKAR MAN on 12/01/20 1303 Cetirizine HCl (Zyrtec) 10 Mg Tablet, 10 MG PO HS PRN for ITCHING, (Reported) Entered as Reported by: ANGY ANNA on 09/12/15337 Fluticasone Propionate (Flonase Allergy Relief) 9.9 Ml Salol.susp, 9.9 ML NS PRN, (Reported) Entered as Reported by: ANGY ANNA on 09/12/15337 Lactobacillus Acidophilus (Acidophilus) 100 Mg Capsule, 100 MG PO DAILY, (Reported) Entered as Reported by: ANNA PORTILLO on 10/24/121948 Lanthanum Carbonate (Fosrenol) 1,000 Mg Tab.chew, 1,000 MG PO TID, (Reported) Entered as Reported by: NAGY ANNA on 09/12/15337 Lisinopril (Zestril) 20 Mg Tab, 20 MG PO HS, (Reported) Entered as Reported by: ANNA PORTILLO on 10/24/121948 Lorazepam (Ativan) 0.5 Mg Tablet, 0.5 MG PO BID, (Reported) Entered as Reported by: ANNA PORTILLO on 10/24/121948 Mag Hydrox/Al Hydrox/Simeth (Mylanta Liquid) 355 Ml Oral.susp, 20 ML PO Q6H PRN, (Reported) Entered as Reported by: ANNA PORTILLO on 10/24/121948 Menthol/Zinc Oxide (Gold Dang Medicated Body Powdr) 283 Gm Powder, 283 GM TP, (Reported) Entered as Reported by: ANNA PORTILLO on 10/24/121948 Metoclopramide Hcl (Reglan 10 Mg Tab) 10 Mg Tab, 1 EACH PO BID, (Reported) Entered as Reported by: ANNA PORTILLO on 10/24/121948 Metoprolol Tartrate (Metoprolol Tartrate) 50 Mg Tablet, 50 MG PO DAILY, (Reported) Entered as Reported by: ANGY ANNA on 09/12/15 0338 Ropinirole Hcl (Requip) 0.25 Mg Tab, 1 TAB PO HS, (Reported) Entered as Reported by: ANNA PORTILLO on 10/24/121948 Sodium Bicarbonate (Sodium Bicarbonate) 1 Meq/1 Ml Disp.syrin, 650 MG PO BID, (Reported) Entered as Reported by: ANNA PORTILLO on 10/24/121948 Topiramate (Topamax 100 Mg) 100 Mg Tab, 100 MG PO TID, (Reported) Entered as Reported by: ANNA PORTILLO on 10/24/121948 Tramadol Hcl (Ultram) 50 Mg Tab, 50 MG PO BID, (Reported) Entered as Reported by: ANNA PORTILLO on 10/24/121948 Venlafaxine Hcl (Effexor) 50 Mg Tablet, 0.5 EACH PO BID, (Reported) Entered as Reported by: ANNA PORTILOL on 10/24/121948 [sensipar] , 120 MG PO DAILY, (Reported) Entered as Reported by: ANNA PORTILLO on 10/24/121948 Review of Systems Review of Systems Constitutional: see HPI Past Orrlvcn-Hqlwwj-Thbbid Hx Patient Social History Tobacco Use?: Yes Smoking Status: Former Smoker Substance use?: No Substance type: Marijuana Alcohol Use?: No Immunizations Up To Date Tetanus Booster (TDap): Less than 5yrs First/Initial COVID19 Vaccinat: UNKNOWN COVID19 Vaccine Bulb Brander: UNKNOWN Seasonal Allergies Seasonal Allergies: No Past Medical History Surgeries: Yes Arteriovenous Shunt, Dialysis, Orthopedic, Vascular Surgery Respiratory: No Cardiac: Yes Hypertension Neurological: Yes Seizure Disorder Reproductive Disorders: No Sexually Transmitted Disease: No HIV/AIDS: No Genitourinary: Yes Renal Failure, Dialysis Gastrointestinal: Yes (? GASTROPARESIS ? ) Musculoskeletal: Yes (LEFT FEMUR FX/ORIF-RAMA) Endocrine: Yes Diabetes, Non-Insulin dep HEENT: No Cancer: No Psychosocial: Yes ("INTERMITTENT EXPLOSIVE DISORDER" ) Schizophrenia, Violent Behavior Integumentary: No Blood Disorders: No Adverse Reaction/Blood Tranf: No Physical Exam Vital Signs Vital Signs - First Documented 03/22/22 11:32 Pulse 106 Resp 16 B/P (MAP) 119/74 (89) Pulse Ox 99 O2 Delivery Room Air Capillary Refill : Less Than 3 Seconds Height/Weight/BMI Height: 5'11" Weight: 250lbs. oz. 113.415949xl; 31.00 BMI Method:Stated General Appearance: WD/WN, no apparent distress HEENT: PERRL/EOMI, normal ENT inspection, pharynx normal Neck: full range of motion, normal inspection Respiratory: lungs clear, normal breath sounds, no respiratory distress, no accessory muscle use Cardiovascular: regular rate, rhythm, no murmur Gastrointestinal: normal bowel sounds, soft, distended, guarding, rebound Extremities: normal range of motion, normal inspection Back: normal inspection Neurologic/Psychiatric: no motor/sensory deficits, alert, normal mood/affect, oriented x 3 Skin: normal color, warm/dry Progress/Results/Core Measures Results/Orders Lab Results Laboratory Tests Test 03/22/22 11:22 Range/Units Procalcitonin 11.70 H <0.10 NG/ML My Orders Orders - LILLIAM SANTIAGO APRN Ct Abdomen/Pelvis Wo (03/22/22 11:56) Fentanyl Inj (Sublimaze Injection) (03/22/22 12:15) Ed Iv/Invasive Line Start (03/22/22 12:05) Procalcitonin (Pct) (03/22/22 12:12) Fentanyl Inj (Sublimaze Injection) (03/22/22 12:30) Piperacillin Sodium/Tazobactam (Zosyn Vi (03/22/22 13:30) Fentanyl Inj (Sublimaze Injection) (03/22/22 14:15) Ondansetron Injection (Zofran Injectio (03/22/22 16:00) Metronidazole 500mg/100ml Ivpb (Flagyl 5 (03/22/22 16:30) Medications Given in ED Current Medications Medications Dose Ordered Sig/Agata Route Start Time Stop Time Status Last Admin Dose Admin Fentanyl Citrate 25 mcg ONCE ONCE IM 03/22/22 12:30 03/22/22 12:31 DC 03/22/22 12:23 25 MCG Fentanyl Citrate 50 mcg ONCE ONCE IVP 03/22/22 14:15 03/22/22 14:16 DC 03/22/22 14:22 50 MCG Metronidazole 100 ml @ 100 mls/hr ONCE ONCE IV 03/22/22 16:30 03/22/22 17:29 DC 03/22/22 16:59 100 MLS/HR Ondansetron HCl 4 mg ONCE ONCE IVP 03/22/22 16:00 03/22/22 16:01 DC 03/22/22 16:59 4 MG Piperacillin Sod/ Tazobactam Sod 2.25 gm/Sodium Chloride 100 ml @ 200 mls/hr ONCE ONCE IV 03/22/22 13:30 03/22/22 13:59 DC 03/22/22 14:26 200 MLS/HR Vital Signs/I&O 03/22/22 11:32 Pulse 106 Resp 16 B/P (MAP) 119/74 (89) Pulse Ox 99 O2 Delivery Room Air Blood Pressure Mean: 89 Progress Progress Note : Progress Note Patient examined in no acute distress. Vital signs are stable. He had outpatient labs completed prior to ED arrival, he was noted to have a 13,000 white count. Added procalcitonin to labs that. We will go ahead and obtain CT abdomen pelvis without contrast as he is on hemodialysis with a creatinine of 10 and we have no dialysis capability at this facility. Was given fentanyl 25 mcg IM for pain. CT abdomen pelvis shows inflammation and potential abscess vs perforation of the cecum. Initiated Zosyn 2.25 mg IV And given fentanyl 50 mcg IV push for pain. Attempted to contact Gabi Trevizo, [facility] for potential transfer all were at capacity. Initiated contact with [facility] for potential transfer, pending return call. [facility] accepted transfer. We will work on transportation for transfer. Flagyl 500mg added to order set. Diagnostic Imaging Diagonstic Imaging: CT Comments [facility], [place] NAME: OMARI MILLIGAN Roman [facility] REC#: [id number] PT STATUS: REG ER : 1975 PHYSICIAN: LILLIAM SANTIAGO MOBILE APPLICATION DEVELOPER ADMIT DATE: 03/22/22/ER Draft Date of Exam:03/22/22 CT ABDOMEN/PELVIS WO CT ABDOMEN/PELVIS WO TECHNIQUE: Unenhanced CT imaging of the abdomen and pelvis was performed. 2-D reformats are created and submitted for interpretation. Automatic exposure controls were utilized to optimize patient dose. INDICATION: Right lower quadrant pain. COMPARISON: 07/02/2019. FINDINGS: Lower chest: The lung bases are clear. No pericardial or pleural effusion. Peritoneum: No free intraperitoneal air or fluid. Liver and biliary system: Unenhanced liver is normal. The gallbladder is normal. No biliary duct dilation. Spleen and Pancreas: Spleen is normal. Unenhanced pancreas is grossly normal. Adrenals: Normal. tract: Numerous bilateral renal cysts are stable. No solid renal masses appreciated. No obstructive uropathy. Prostate is unremarkable. GI tract: Stomach is decompressed. No bowel obstruction. The cecum has wall thickening with surrounding inflammation. The appendix is nondilated and has no inflammation except around its base. Cecum may have a contained perforation at its tip as there is air and fluid-filled focus measuring 3.8 x 4.1 x 3.0 cm at its tip. Vasculature and Lymph nodes: There are a few borderline enlarged right lower quadrant mesenteric lymph nodes that are likely reactive in nature. Normal-caliber abdominal aorta. Musculoskeletal: No concerning osseous lesion. IMPRESSION: 1. Abnormal appearance of the cecum which is likely due to acute colitis. There is a question of a small contained perforation at the tip of the cecum versus ill-defined patulous portion of the cecum itself. Follow-up CT abdomen and pelvis with IV contrast may be useful in 24 to 48 hours to assess if this area potential forms a more definitive abscess. 2. The appendix is separate from this questioned perforation and there are no features of acute appendicitis. Dictated on workstation # [id number] Dict: 03/22/22 1247 Trans: 03/22/22 1321 [id number] Interpreted by: MANISHA HOLLAND MD Electronically signed by: Departure Impression Primary Impression: Colitis with possible bowel perforation Additional Impression: ESRD (end stage renal disease) on dialysis Disposition: XFER SHT-TRM HOSP Condition: Stable Admissions Decision to Admit Reason: Admit from ER (General) Decision to Admit/Date: Mar 22, 2022 Time/Decision to Admit Time: 15:30 Transfer Transfer Reason: Exceeds level of care Time Spoke to Accepting Phy: 14:59 Transfer Progress Notes [facility] Transfer Time: 17:58 Transfer Facility: [facility], Dr. Deng Method of Transfer: EMS Departure-Patient Inst. Referrals: AMANDA CHOW MD (PCP/Family) Primary Care Physician LILLIAM SANTIAGO MOBILE APPLICATION DEVELOPER Mar 22, 2022 12:20
[2022-03-22] MEDS ORDERED: fentaNYL INJ 100 MCG/2 ML AMP IM ONE (12:30)
--- NOTE | 2022-03-22 13:21 | Diagnostic Imaging Report ---
CT ABDOMEN/PELVIS WO TECHNIQUE: Unenhanced CT imaging of the abdomen and pelvis was performed. 2-D reformats are created and submitted for interpretation. Automatic exposure controls were utilized to optimize patient dose. INDICATION: Right lower quadrant pain. COMPARISON: 07/02/2019. FINDINGS: Lower chest: The lung bases are clear. No pericardial or pleural effusion. Peritoneum: No free intraperitoneal air or fluid. Liver and biliary system: Unenhanced liver is normal. The gallbladder is normal. No biliary duct dilation. Spleen and Pancreas: Spleen is normal. Unenhanced pancreas is grossly normal. Adrenals: Normal. tract: Numerous bilateral renal cysts are stable. No solid renal masses appreciated. No obstructive uropathy. Prostate is unremarkable. GI tract: Stomach is decompressed. No bowel obstruction. The cecum has wall thickening with surrounding inflammation. The appendix is nondilated and has no inflammation except around its base. Cecum may have a contained perforation at its tip as there is air and fluid-filled focus measuring 3.8 x 4.1 x 3.0 cm at its tip. Vasculature and Lymph nodes: There are a few borderline enlarged right lower quadrant mesenteric lymph nodes that are likely reactive in nature. Normal-caliber abdominal aorta. Musculoskeletal: No concerning osseous lesion. IMPRESSION: 1. Abnormal appearance of the cecum which is likely due to acute colitis. There is a question of a small contained perforation at the tip of the cecum versus ill-defined patulous portion of the cecum itself. Follow-up CT abdomen and pelvis with IV contrast may be useful in 24 to 48 hours to assess if this area potential forms a more definitive abscess. 2. The appendix is separate from this questioned perforation and there are no features of acute appendicitis. Dictated by: Dictated on workstation # [id number]
[2022-03-22] MEDS ORDERED: PIPERACILLIN SODIUM/TAZOBACTAM 2.25 GM in NS (IVPB) 100 ML IV ONE (13:30)
[2022-03-22] MEDS ORDERED: NS IV 500 ML 500 ML IV ONE (13:45)
[2022-03-22] MEDS ORDERED: ONDANSETRON 4 MG/2 ML (SDV) Z0FRAN IVP ONE (16:00)
[2022-03-22] MEDS ORDERED: metroNIDAZOLE 500MG/100ML IVPB 100 ML IV ONE (16:30)
--- NOTE | 2022-03-22 17:32 | Progress Note - Surgery ---
SASHA BUSTAMANTE 03/22/222: Subjective Date Seen by a Provider: Mar 22, 2022 Time Seen by a Provider: 15:00 Subjective/Events-last exam Patient being seen in the ER for perforated colon. 46 year old male from [facility] with a Past MedHx of Schizophrenia, ESRD requiring hemodialysis >20 years, developmental delay presented to [facility] ER from [place] to have a CT scan because his insurance wouldn't pay for an outpatient CT scan. Patient has a CC of RLQ pain that started last Monday. It has been constant and progressively getting worse. Pt describes the pain as stabbing. Also endorses diarrhea and occasional nausea due to pain meds. Patient states that movement and changing positions make his pain worse. Denies radiation of pain. Rates it a 01/31 currently. Review of Systems General: No Chills, No Night Sweats HEENT: No Head Aches, No Visual Changes Pulmonary: No Dyspnea, No Cough Cardiovascular: No: Chest Pain, Palpitations Gastrointestinal: Nausea, Abdominal Pain, Diarrhea; No: Vomiting, Constipation, Melena, Hematochezia Genitourinary: No Dysuria, No Frequency Neurological: No: Weakness, Numbness Objective Exam Vital Signs Date Time Temp Pulse Resp B/P (MAP) Pulse Ox O2 Delivery O2 Flow Rate FiO2 03/22/22 11:32 106 16 119/74 (89) 99 Room Air Capillary Refill : Less Than 3 Seconds General Appearance: Anxious, Mild Distress HEENT: PERRL/EOMI Neck: Non Tender, Supple Respiratory: Lungs Clear, Normal Breath Sounds, No Accessory Muscle Use, No Respiratory Distress Cardiovascular: Regular Rate, Rhythm, No Murmur Gastrointestinal: No distended (non-distended, but firm abdomen ); guarding (voluntary RLQ ), tenderness (RLQ) Extremity: Non Tender, No Calf Tenderness, No Pedal Edema Neurologic/Psychiatric: Alert, Oriented x3, Normal Mood/Affect Skin: Normal Color, Warm/Dry Results Lab Laboratory Tests 03/22/22 11:22: Procalcitonin 11.70H Assessment/Plan Assessment/Plan Assessment/Plan Contained Perforation of Cecum ESRD requiring hemodialysis T1DM Schizophrenia Intermittent Explosive Disorder HTN HLD Plan NPO, IVF, Pain control, anti-emetics Ciprofloxacin + Metronidazole Patient has a current creatinine of 10 and needs dialysis MWF. We are unable to perform dialysis at our facility. Given patients ESRD and need for frequent dialysis, we will hold off on doing surgery if possible so that patient can be transferred to a facility that can better meet the needs of the patient. Patient is on Renal Transplant list at [facility]. Patient was accepted for transfer to [facility]. We are awaiting an available EMT team to transfer patient. This could be as early as 8 am tomorrow, but could take longer than that. FAUSTINA ARNOLD DO 03/22/22 1810: Subjective Time Seen by a Provider: 16:32 Subjective/Events-last exam Surgery asked to consult regarding colon perforation. SASHA BUSTAMANTE Mar 22, 2022 17:32 FAUSTINA ARNOLD DO Mar 22, 2022 18:10
--- NOTE | 2022-03-22 18:18 | Consultation - Surgery ---
SASHA BUSTAMANTE 03/[birth year]/228: History of Present Illness History of Present Illness Patient Consulted On(patricio/time) 03/22/22 18:12 Date Seen by Provider: Mar 22, 2022 Time Seen by Provider: 18:12 History of Present Illness Patient being seen in the ER for perforated colon. 46 year old male from [facility] with a Past MedHx of Schizophrenia, ESRD requiring hemodialysis >20 years, developmental delay presented to [facility] ER from [place] to have a CT scan because his insurance wouldn't pay for an outpatient CT scan. Patient has a CC of RLQ pain that started last Monday. It has been constant and progressively getting worse. Pt describes the pain as stabbing. Also endorses diarrhea and occasional nausea due to pain meds. Patient states that movement and changing positions make his pain worse. Denies radiation of pain. Rates it a 01/31 currently. Allergies and Home Medications Allergies Coded Allergies: Milk Containing Products (Unverified Allergy, Mild, 07/12/09) sulfamethoxazole (Unverified Allergy, Mild, 07/12/09) trimethoprim (Unverified Allergy, Mild, 07/12/09) Uncoded Allergies: [id number] (CHOCOLATE FLAVOR) (Allergy, Mild, 07/12/09) Patient Home Medication List Home Medication List Reviewed: Yes Acetaminophen (Tylenol Tablet) 325 Mg Tab, 650 MG PO Q6H PRN, (Reported) Entered as Reported by: ANNA PORTILLO on 10/24/121948 Albuterol Sulfate (Ventolin Hfa) 1 Puff Puff, 2 PUFF IH TID, (Reported) Entered as Reported by: ANNA PORTILLO on 10/24/121948 Albuterol Sulfate (Proventil) 0.83 Mg/Ml Solution, 0.83 MG IH TID PRN, (Reported) Entered as Reported by: ANNA PORTILLO on 10/24/121948 Aripiprazole (Abilify 15 Mg) 15 Mg Tab, 1 TAB PO DAILY, (Reported) Entered as Reported by: ANNA PORTILLO on 10/24/121948 Aspirin (Aspirin 81 Mg Chew Tab) 81 Mg Chew, 81 MG PO DAILY, (Reported) Entered as Reported by: ANNA PORTILLO on 10/24/121948 Calcium Acetate (Phoslo) 667 Mg Tablet, 2,668 MG PO AC, (Reported) Entered as Reported by: ANNA PORTILLO on 10/24/121948 Calcium Acetate (Phoslo) 667 Mg Tablet, 1,334 MG PO DAILY, (Reported) Entered as Reported by: ANNA PORTILLO on 10/24/121948 Cefdinir (Cefdinir) 300 Mg Capsule, 300 MG PO UD Prescribed by: SUDHAKAR MAN on 12/01/20 1303 Cetirizine HCl (Zyrtec) 10 Mg Tablet, 10 MG PO HS PRN for ITCHING, (Reported) Entered as Reported by: ANGY ANNA on 09/12/15337 Fluticasone Propionate (Flonase Allergy Relief) 9.9 Ml Felton.susp, 9.9 ML NS PRN, (Reported) Entered as Reported by: ANGY ANNA on 09/12/15337 Lactobacillus Acidophilus (Acidophilus) 100 Mg Capsule, 100 MG PO DAILY, (Repo rted) Entered as Reported by: ANNA PORTILLO on 10/24/121948 Lanthanum Carbonate (Fosrenol) 1,000 Mg Tab.chew, 1,000 MG PO TID, (Reported) Entered as Reported by: ANGY ANNA on 09/12/15337 Lisinopril (Zestril) 20 Mg Tab, 20 MG PO HS, (Reported) Entered as Reported by: ANNA PORTILLO on 10/24/121948 Lorazepam (Ativan) 0.5 Mg Tablet, 0.5 MG PO BID, (Reported) Entered as Reported by: ANNA PORTILLO on 10/24/121948 Mag Hydrox/Al Hydrox/Simeth (Mylanta Liquid) 355 Ml Oral.susp, 20 ML PO Q6H PRN, (Reported) Entered as Reported by: ANNA PORTILLO on 10/24/121948 Menthol/Zinc Oxide (Gold Dang Medicated Body Powdr) 283 Gm Powder, 283 GM TP, (Reported) Entered as Reported by: ANNA PORTILLO on 10/24/121948 Metoclopramide Hcl (Reglan 10 Mg Tab) 10 Mg Tab, 1 EACH PO BID, (Reported) Entered as Reported by: ANNA PORTILLO on 10/24/121948 Metoprolol Tartrate (Metoprolol Tartrate) 50 Mg Tablet, 50 MG PO DAILY, (Reported) Entered as Reported by: ANGY ANNA on 09/12/15 0338 Ropinirole Hcl (Requip) 0.25 Mg Tab, 1 TAB PO HS, (Reported) Entered as Reported by: ANNA PORTILLO on 10/24/121948 Sodium Bicarbonate (Sodium Bicarbonate) 1 Meq/1 Ml Disp.syrin, 650 MG PO BID, (Reported) Entered as Reported by: ANNA PORTILLO on 10/24/121948 Topiramate (Topamax 100 Mg) 100 Mg Tab, 100 MG PO TID, (Reported) Entered as Reported by: ANNA PORTILLO on 10/24/121948 Tramadol Hcl (Ultram) 50 Mg Tab, 50 MG PO BID, (Reported) Entered as Reported by: ANNA PORTILLO on 10/24/121948 Venlafaxine Hcl (Effexor) 50 Mg Tablet, 0.5 EACH PO BID, (Reported) Entered as Reported by: ANNA PORTILLO on 10/24/121948 [sensipar] , 120 MG PO DAILY, (Reported) Entered as Reported by: ANNA PORTILLO on 10/24/121948 Past Vofqlgl-Qhquml-Jbxbhg Hx Patient Social History Smoking Status: Former Smoker Type Used: Cigarettes Recent Hopitalizations: No Alcohol Use?: No Substance type: Marijuana Have you traveled recently?: No Immunizations Up To Date Tetanus Booster (TDap): Less than 5yrs Seasonal Allergies Seasonal Allergies: No Surgeries History of Surgeries: Yes Surgeries: Arteriovenous Shunt, Dialysis, Orthopedic, Vascular Surgery Respiratory History of Respiratory Disorde: No Cardiovascular History of Cardiac Disorders: Yes Cardiac Disorders: Hypertension Neurological History of Neurological Disord: Yes Neurological Disorders: Seizure Disorder Reproductive System Hx Reproductive Disorders: No Sexually Transmitted Disease: No HIV/AIDS: No Genitourinary History of Genitourinary Disor: Yes Genitourinary Disorders: Renal Failure, Dialysis Gastrointestinal History of Gastrointestinal Di: Yes (Gastroparesis ) Gastrointestinal Disorders: Diverticulosis Musculoskeletal History of Musculoskeletal Dis: Yes (LEFT FEMUR FX/ORIF-RAMA) Endocrine History of Endocrine Disorders: Yes Endocrine Disorders: Diabetes, Insulin dep HEENT History of HEENT Disorders: No Cancer History of Cancer: No Psychosocial History of Psychiatric Problem: Yes (Intermittent Explosive Disorder ) Behavioral Health Disorders: Schizophrenia, Violent Behavior Integumentary History of Skin or Integumenta: No Blood Transfusions History of Blood Disorders: No Adverse Reaction to a Blood Tr: No Family Medical History Significant Family History: Other Conditions/Hx (Family Hx unknown) Review of Systems-General Constitutional: No chills, No diaphoresis EENTM: No blurred vision, No double vision, No vision loss Respiratory: No cough, No dyspnea on exertion Cardiovascular: No chest pain, No palpitations Gastrointestinal: abdominal pain (RLQ); No constipation, No diarrhea, No melena; nausea; No vomiting Genitourinary: No dysuria, No frequency, No hematuria Psychiatric/Neurological: Denies Anxiety, Denies Depressed Physical Exam-General Problems Physical Exam Vital Signs Vital Signs - First Documented 03/22/22 11:32 Pulse 106 Resp 16 B/P (MAP) 119/74 (89) Pulse Ox 99 O2 Delivery Room Air Capillary Refill : Less Than 3 Seconds General Appearance: mild distress (anxious) HEENT: PERRL/EOMI Neck: non-tender, supple Respiratory: lungs clear, normal breath sounds, no respiratory distress, no accessory muscle use Cardiovascular: regular rate, rhythm, no murmur Gastrointestinal: No distended (Firm, non-distended); guarding (voluntary, RLQ), tenderness (RLQ) Rectal: deferred Extremities: non-tender, no pedal edema, no calf tenderness Neurologic/Psychiatric: alert, oriented x 3 Skin: normal color, warm/dry Data Review Labs Laboratory Tests 03/22/22 11:22: Procalcitonin 11.70H Radiology [facility] [place], [place] NAME: [facility] REC#: [id number] PT STATUS: REG ER : 1975 PHYSICIAN: LILLIAM SANTIAGO GRAPHOTYPE OPERATOR ADMIT DATE: 03/22/22/ER Signed Date of Exam:03/22/22 CT ABDOMEN/PELVIS WO CT ABDOMEN/PELVIS WO TECHNIQUE: Unenhanced CT imaging of the abdomen and pelvis was performed. 2-D reformats are created and submitted for interpretation. Automatic exposure controls were utilized to optimize patient dose. INDICATION: Right lower quadrant pain. COMPARISON: 07/02/2019. FINDINGS: Lower chest: The lung bases are clear. No pericardial or pleural effusion. Peritoneum: No free intraperitoneal air or fluid. Liver and biliary system: Unenhanced liver is normal. The gallbladder is normal. No biliary duct dilation. Spleen and Pancreas: Spleen is normal. Unenhanced pancreas is grossly normal. Adrenals: Normal. tract: Numerous bilateral renal cysts are stable. No solid renal masses appreciated. No obstructive uropathy. Prostate is unremarkable. GI tract: Stomach is decompressed. No bowel obstruction. The cecum has wall thickening with surrounding inflammation. The appendix is nondilated and has no inflammation except around its base. Cecum may have a contained perforation at its tip as there is air and fluid-filled focus measuring 3.8 x 4.1 x 3.0 cm at its tip. Vasculature and Lymph nodes: There are a few borderline enlarged right lower quadrant mesenteric lymph nodes that are likely reactive in nature. Normal-caliber abdominal aorta. Musculoskeletal: No concerning osseous lesion. IMPRESSION: 1. Abnormal appearance of the cecum which is likely due to acute colitis. There is a question of a small contained perforation at the tip of the cecum versus ill-defined patulous portion of the cecum itself. Follow-up CT abdomen and pelvis with IV contrast may be useful in 24 to 48 hours to assess if this area potential forms a more definitive abscess. 2. The appendix is separate from this questioned perforation and there are no features of acute appendicitis. Dictated by: Dictated on workstation # [id number] Dict: 03/22/22 1247 Trans: 03/22/221648 [id number] Interpreted by: MANISHA HOLLAND MD Electronically signed by: MANISHA HOLLAND MD 03/22/22 7429 Assessment/Plan Assessment/Plan Assessment/Plan Contained Perforation of Cecum ESRD requiring hemodialysis T1DM Schizophrenia Intermittent Explosive Disorder HTN HLD Plan NPO, IVF, Pain control, anti-emetics Ciprofloxacin + Metronidazole Patient has a current creatinine of 10 and needs dialysis MWF. We are unable to perform dialysis at our facility. Given patients ESRD and need for frequent dialysis, we will hold off on doing surgery if possible so that patient can be transferred to a facility that can better meet the needs of the patient. Jodi bui is on Renal Transplant list at [facility]. Patient was accepted for transfer to [facility]. We are awaiting an available EMT team to transfer patient. This could be as early as 8 am tomorrow, but could take longer than that. FAUSTINA ARNOLD DO 03/22/22 1830: History of Present Illness History of Present Illness Time Seen by Provider: 16:32 History of Present Illness Surgery asked to consult regarding colon perforation. HPI per ED: This is a 46-year-old male from [place] who has a history of end- stage renal disease and is on hemodialysis. He was referred for acute appendicitis work-up by his primary care provider. He had outpatient labs ordered and was sent to the ER for further evaluation. He does dialysis Monday, Monday, Monday. He is currently on the transplant list and has a follow-up appointment with BRANDIE in 2 days. Describes pain as sharp, stabbing and constant. Has been present for the past couple days. He did drink a egg nog over the weekend and is lactose intolerant, was unsure if this was any contributing factors. No fever, cough, shortness of breath, chest pain. When I saw pt in the ER, he had been accepted to [facility]....unfortunately there is no Ambulance crew to take pt up to [facility]. I was asked basically to be on board in case he needed emergency surgery. He is an ESRD on dialysis and cannot stay here because we don't have dialsis. Pt was laying in the ER bed and appeared mostly comfortable, but did occasionally squirm in pain. He is a resident of [place]; because of Schizophrenia, mild developmental delay and intermittent explosive disorder. He states he has had this pain since last Monday. His case worked stated he had a colonoscopy on 02/08; which showed diverticulosis. Allergies and Home Medications Allergies Coded Allergies: Milk Containing Products (Unverified Allergy, Mild, 07/12/09) sulfamethoxazole (Unverified Allergy, Mild, 07/12/09) trimethoprim (Unverified Allergy, Mild, 07/12/09) Uncoded Allergies: [id number] (CHOCOLATE FLAVOR) (Allergy, Mild, 07/12/09) Patient Home Medication List Home Medication List Reviewed: Yes Acetaminophen (Tylenol Tablet) 325 Mg Tab, 650 MG PO Q6H PRN, (Reported) Entered as Reported by: ANNA PORTILLO on 10/24/121948 Albuterol Sulfate (Ventolin Hfa) 1 Puff Puff, 2 PUFF IH TID, (Reported) Entered as Reported by: ANNA OPRTILLO on 10/24/121948 Albuterol Sulfate (Proventil) 0.83 Mg/Ml Solution, 0.83 MG IH TID PRN, (Reported) Entered as Reported by: ANNA PORTILLO on 10/24/121948 Aripiprazole (Abilify 15 Mg) 15 Mg Tab, 1 TAB PO DAILY, (Reported) Entered as Reported by: ANNA PORTILLO on 10/24/121948 Aspirin (Aspirin 81 Mg Chew Tab) 81 Mg Chew, 81 MG PO DAILY, (Reported) Entered as Reported by: ANNA PORTILLO on 10/24/121948 Calcium Acetate (Phoslo) 667 Mg Tablet, 2,668 MG PO AC, (Reported) Entered as Reported by: ANNA PORTILLO on 10/24/121948 Calcium Acetate (Phoslo) 667 Mg Tablet, 1,334 MG PO DAILY, (Reported) Entered as Reported by: ANNA PORTILLO on 10/24/121948 Cefdinir (Cefdinir) 300 Mg Capsule, 300 MG PO UD Prescribed by: SUDHAKAR MAN on 12/01/20 1303 Cetirizine HCl (Zyrtec) 10 Mg Tablet, 10 MG PO HS PRN for ITCHING, (Reported) Entered as Reported by: ANGY ANNA on 09/12/15337 Fluticasone Propionate (Flonase Allergy Relief) 9.9 Ml Felton.susp, 9.9 ML NS PRN, (Reported) Entered as Reported by: ANGY ANNA on 09/12/15337 Lactobacillus Acidophilus (Acidophilus) 100 Mg Capsule, 100 MG PO DAILY, (Reported) Entered as Reported by: ANNA PORTILLO on 10/24/121948 Lanthanum Carbonate (Fosrenol) 1,000 Mg Tab.chew, 1,000 MG PO TID, (Reported) Entered as Reported by: ANGY ANNA on 09/12/15337 Lisinopril (Zestril) 20 Mg Tab, 20 MG PO HS, (Reported) Entered as Reported by: ANNA PORTILLO on 10/24/121948 Lorazepam (Ativan) 0.5 Mg Tablet, 0.5 MG PO BID, (Reported) Entered as Reported by: ANNA PORTILLO on 10/24/121948 Mag Hydrox/Al Hydrox/Simeth (Mylanta Liquid) 355 Ml Oral.susp, 20 ML PO Q6H PRN, (Reported) Entered as Reported by: ANNA PORTILLO on 10/24/121948 Menthol/Zinc Oxide (Gold Dang Medicated Body Powdr) 283 Gm Powder, 283 GM TP, (Reported) Entered as Reported by: ANNA PORTILLO on 10/24/121948 Metoclopramide Hcl (Reglan 10 Mg Tab) 10 Mg Tab, 1 EACH PO BID, (Reported) Entered as Reported by: ANNA PORTILLO on 10/24/121948 Metoprolol Tartrate (Metoprolol Tartrate) 50 Mg Tablet, 50 MG PO DAILY, (Reported) Entered as Reported by: ANGY ANNA on 09/12/15337 Ropinirole Hcl (Requip) 0.25 Mg Tab, 1 TAB PO HS, (Reported) Entered as Reported by: ANNA PORTILLO on 10/24/121948 Sodium Bicarbonate (Sodium Bicarbonate) 1 Meq/1 Ml Disp.syrin, 650 MG PO BID, (Reported) Entered as Reported by: ANNA PORTILLO on 10/24/121948 Topiramate (Topamax 100 Mg) 100 Mg Tab, 100 MG PO TID, (Reported) Entered as Reported by: ANNA PORTILLO on 10/24/121948 Tramadol Hcl (Ultram) 50 Mg Tab, 50 MG PO BID, (Reported) Entered as Reported by: ANNA PORTILLO on 10/24/121948 Venlafaxine Hcl (Effexor) 50 Mg Tablet, 0.5 EACH PO BID, (Reported) Entered as Reported by: ANNA PORTILLO on 10/24/121948 [sensipar] , 120 MG PO DAILY, (Reported) Entered as Reported by: ANNA PORTILLO on 10/24/121948 Past Amebwnz-Hyvzck-Chfnku Hx Patient Social History Smoking Status: Former Smoker Alcohol Use?: No Surgeries History of Surgeries: Yes Surgeries: Vascular Surgery (multiple AV-fistula, shunts and ports) Respiratory History of Respiratory Disorde: No Cardiovascular History of Cardiac Disorders: Yes Cardiac Disorders: Hypertension Neurological History of Neurological Disord: Yes Neurological Disorders: Developmental Disorder, Seizure Disorder Genitourinary History of Genitourinary Disor: Yes (End Stage Renal dz) Genitourinary Disorders: Renal Failure, Dialysis Gastrointestinal History of Gastrointestinal Di: Yes (Gastroparesis ) Gastrointestinal Disorders: Diverticulosis Musculoskeletal History of Musculoskeletal Dis: Yes Musculoskeletal Disorders: Fractures (femur) Endocrine History of Endocrine Disorders: Yes Endocrine Disorders: Diabetes, Non-Insulin dep HEENT History of HEENT Disorders: Yes Loss of Vision: Bilateral Hearing Impairment: Denies Cancer History of Cancer: No Psychosocial History of Psychiatric Problem: Yes (Intermittent Explosive Disorder ) Behavioral Health Disorders: Schizophrenia, Violent Behavior Family Medical History Significant Family History: Other Conditions/Hx (Family Hx unknown) Review of Systems-General Constitutional: No chills, No diaphoresis EENTM: No blurred vision, No double vision, No vision loss Respiratory: No cough, No dyspnea on exertion Cardiovascular: No chest pain, No palpitations Gastrointestinal: abdominal pain (RLQ); No constipation, No diarrhea, No melena; nausea; No vomiting Genitourinary: decreased output; No dysuria, No frequency, No hematuria Musculoskeletal: joint pain, muscle stiffness, muscle cramps Psychiatric/Neurological: Denies Anxiety, Denies Depressed; Seizure; Denies Tremors Physical Exam-General Problems Physical Exam General Appearance: mild distress (anxious), obese Eyes: Bilateral Eye PERRL, Bilateral Eye EOMI HEENT: pharynx normal; No scleral icterus (R), No scleral icterus (L) Neck: non-tender, supple Respiratory: lungs clear, normal breath sounds, no respiratory distress, no accessory muscle use Cardiovascular: regular rate, rhythm, no murmur Gastrointestinal: no organomegaly; No distended (Firm, non-distended); guarding (voluntary, RLQ), tenderness (RLQ), hernia (small umbilical hernia) Rectal: deferred Extremities: non-tender, no pedal edema, no calf tenderness, other (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 We are unable to perform dialysis at our facility. Given patients ESRD and need for frequent dialysis, we will hold off on doing surgery if possible so that patient can be transferred to a facility that can better meet the needs of the patient. Patient is on Renal Transplant list at [facility]. Patient was accepted for transfer to [facility]. We are awaiting an available EMT team to transfer patient. This could be as early as 8 am tomorrow, but could take longer than that. Supervisory-Addendum Brief Verification & Attestation Participated in pt care: history, MDM, physical Personally performed: exam, history, MDM, supervision of care Care discussed with: Medical Student Procedures: n/a Verification and Attestation of Medical Student E/M Service A medical student performed and documented this service. I then reviewed and verified all information documented by the medical student and made modifications to such information, when appropriate. I personally performed a physical exam, medical decision making and then discussed any differences between the notes and made revisions as necessary to create one note. Faustina Arnold , 03/22/22 , 18:41 SASHA BUSTAMANTE Mar 22, 2022 18:18 FAUSTINA ARNOLD DO Mar 22, 2022 18:30
[2022-03-22 19:24] VITALS: BP 116/78
== END 2022-03-22 19:24 | disposition short-term general hospital (02) ==
LOC: EDUNIT# 11:26 → ER 11:29
DX: K52.9 Noninfective gastroenteritis and colitis, unspecified (principal); E11.22 Type 2 diabetes mellitus with diabetic chronic kidney disease; I12.0 Hypertensive chronic kidney disease with stage 5 chronic kidney disease or end stage renal disease; N18.6 End stage renal disease; Z99.2 Dependence on renal dialysis; Z87.891 Personal history of nicotine dependence
CPT/HCPCS: 36415; 74176; 84145

== ENCOUNTER → 2022-03-22 | Outpatient (CLI) | payer MEDICAID ==
[2022-03-22 11:27] LABS: BASOPHILS # (AUTO) 0.1 10^3/uL (0.0-0.1); BASOPHILS % (AUTO) 1 % (0-10); EOSINOPHILS # (AUTO) 0.2 10^3/uL (0.0-0.3); EOSINOPHILS % (AUTO) 1 % (0-10); HEMATOCRIT 36 % (40-54); HEMOGLOBIN 11.8 g/dL (13.3-17.7); LYMPHOCYTES # (AUTO) 1.6 10^3/uL (1.0-4.0); LYMPHOCYTES % (AUTO) 12 % (12-44); MEAN CORPUSCULAR HEMOGLOBIN 28 pg (25-34); MEAN CORPUSCULAR HGB CONC 33 g/dL (32-36); MEAN CORPUSCULAR VOLUME 86 fL (80-99); MEAN PLATELET VOLUME 11.1 fL (9.0-12.2); MONOCYTES # (AUTO) 1.2 10^3/uL (0.0-1.0); MONOCYTES % (AUTO) 9 % (0-12); NEUTROPHILS % (AUTO) 76 % (42-75); PLATELET COUNT 298 10^3/uL (130-400); WHITE BLOOD COUNT 13.1 10^3/uL (4.3-11.0)
[2022-03-22 11:51] LABS: ALBUMIN 3.9 GM/DL (3.2-4.5); BILIRUBIN,TOTAL 0.6 MG/DL (0.1-1.0); CALCIUM 8.2 MG/DL (8.5-10.1); CREATININE SERUM 10.14 MG/DL (0.60-1.30); TOTAL PROTEIN 8.7 GM/DL (6.4-8.2)
== END ==
LOC: RAD 11:02
PROVIDERS: ATTEND Nurse Practitioner
DX: R10.31 Right lower quadrant pain (principal)
CPT/HCPCS: 36415; 80053; 85025

== ENCOUNTER 2022-04-04 15:37 | Emergency (ER) | payer MEDICAID ==
[~2022-04-04] VITALS: Ht 175 cm; Wt 99.7 kg
--- NOTE | 2022-04-04 16:35 | ED Abdominal Pain ---
General Chief Complaint: Abdominal/GI Problems Stated Complaint: OPEN WOUND CARE Nursing Triage Note: PT PRESENTS TO ED VIA EMS FROM [facility] WITH COMPLAINTS OF ABDOMINAL WOUND DEHISSING DURING WOUND VAC CHANGE. PT HAD ABDOMINAL SX AT [facility] 1 WEEK AGO. PT DID FINISH DIALYSIS TODAY. Source of Information: Patient Exam Limitations: No Limitations History of Present Illness Date Seen by Provider: Apr 04, 2022 Time Seen by Provider: 16:31 Initial Comments This is a 46-year-old male who presented to the ER via [facility] with a history of high functioning intellectual disability, lives in group facility, history of ESRD on hemodialysis, he just discharged from [facility] 3 days ago after partial small bowel bowel resection from perforation. Home health nurse presented to house to change wound VAC and after removing dressing he was noted to have abnormal appearance of his wound site and was referred to ED. He is complaining of abdominal pain, worse with movement, bleeding and drainage from incision site. He did complete 3 and half hours of dialysis just prior to arrival. Reports no extra fluid removed. Last meal was around 1230 this afternoon and was chicken noodles. Allergies and Home Medications Allergies Coded Allergies: Milk Containing Products (Unverified Allergy, Mild, 07/12/09) sulfamethoxazole (Unverified Allergy, Mild, 07/12/09) trimethoprim (Unverified Allergy, Mild, 07/12/09) Uncoded Allergies: [id number] (CHOCOLATE FLAVOR) (Allergy, Mild, 07/12/09) Patient Home Medication List Home Medication List Reviewed: Yes Acetaminophen (Tylenol Tablet) 325 Mg Tab, 650 MG PO Q6H PRN, (Reported) Entered as Reported by: ANNA PORTILLO on 10/24/121948 Albuterol Sulfate (Ventolin Hfa) 1 Puff Puff, 2 PUFF IH TID, (Reported) Entered as Reported by: ANNA PORTILLO on 10/24/121948 Albuterol Sulfate (Proventil) 0.83 Mg/Ml Solution, 0.83 MG IH TID PRN, (Reported) Entered as Reported by: ANNA PORTILLO on 10/24/121948 Aripiprazole (Abilify 15 Mg) 15 Mg Tab, 1 TAB PO DAILY, (Reported) Entered as Reported by: ANNA PORTILLO on 10/24/121948 Aspirin (Aspirin 81 Mg Chew Tab) 81 Mg Chew, 81 MG PO DAILY, (Reported) Entered as Reported by: ANNA PORTILLO on 10/24/121948 Calcium Acetate (Phoslo) 667 Mg Tablet, 2,668 MG PO AC, (Reported) Entered as Reported by: ANNA PORTILLO on 10/24/121948 Calcium Acetate (Phoslo) 667 Mg Tablet, 1,334 MG PO DAILY, (Reported) Entered as Reported by: ANNA PORTILLO on 10/24/121948 Cefdinir (Cefdinir) 300 Mg Capsule, 300 MG PO UD Prescribed by: SUDHAKAR MAN on 12/01/20 1303 Cetirizine HCl (Zyrtec) 10 Mg Tablet, 10 MG PO HS PRN for ITCHING, (Reported) Entered as Reported by: ANGY ANNA on 09/12/15337 Fluticasone Propionate (Flonase Allergy Relief) 9.9 Ml [place].susp, 9.9 ML NS PRN, (Reported) Entered as Reported by: ANGY ANNA on 09/12/15337 Lactobacillus Acidophilus (Acidophilus) 100 Mg Capsule, 100 MG PO DAILY, (Reported) Entered as Reported by: ANNA PORTILLO on 10/24/121948 Lanthanum Carbonate (Fosrenol) 1,000 Mg Tab.chew, 1,000 MG PO TID, (Reported) Entered as Reported by: ANGY ANNA on 09/12/15337 Lisinopril (Zestril) 20 Mg Tab, 20 MG PO HS, (Reported) Entered as Reported by: ANNA PORTILLO on 10/24/121948 Lorazepam (Ativan) 0.5 Mg Tablet, 0.5 MG PO BID, (Reported) Entered as Reported by: ANNA PORTILLO on 10/24/121948 Mag Hydrox/Al Hydrox/Simeth (Mylanta Liquid) 355 Ml Oral.susp, 20 ML PO Q6H PRN, (Reported) Entered as Reported by: ANNA PORTILLO on 10/24/121948 Menthol/Zinc Oxide (Gold Dang Medicated Body Powdr) 283 Gm Powder, 283 GM TP, (Reported) Entered as Reported by: ANNA PORTILLO on 10/24/121948 Metoclopramide Hcl (Reglan 10 Mg Tab) 10 Mg Tab, 1 EACH PO BID, (Reported) Entered as Reported by: ANNA PORTILLO on 10/24/121948 Metoprolol Tartrate (Metoprolol Tartrate) 50 Mg Tablet, 50 MG PO DAILY, (Reported) Entered as Reported by: ANGY ANNA on 09/12/15 033 Ropinirole Hcl (Requip) 0.25 Mg Tab, 1 TAB PO HS, (Reported) Entered as Reported by: ANNA PORTILLO on 10/24/121948 Sodium Bicarbonate (Sodium Bicarbonate) 1 Meq/1 Ml Disp.syrin, 650 MG PO BID, (Reported) Entered as Reported by: ANNA PORTILLO on 10/24/121948 Topiramate (Topamax 100 Mg) 100 Mg Tab, 100 MG PO TID, (Reported) Entered as Reported by: ANNA PORTILLO on 10/24/121948 Tramadol Hcl (Ultram) 50 Mg Tab, 50 MG PO BID, (Reported) Entered as Reported by: ANNA PORTILLO on 10/24/121948 Venlafaxine Hcl (Effexor) 50 Mg Tablet, 0.5 EACH PO BID, (Reported) Entered as Reported by: ANNA PORTILLO on 10/24/121948 [sensipar] , 120 MG PO DAILY, (Reported) Entered as Reported by: ANNA PORTILLO on 10/24/121948 Review of Systems Review of Systems Constitutional: see HPI Past Rwztche-Goacwo-Qulwtc Hx Patient Social History Tobacco Use?: No Smoking Status: Former Smoker Substance use?: No Alcohol Use?: No Pt feels they are or have been: No Immunizations Up To Date Tetanus Booster (TDap): Less than 5yrs First/Initial COVID19 Vaccinat: UNKNOWN Second COVID19 Vaccination Arnold: UNKNOWN Third COVID19 Vaccination Date: UNKNOWN Seasonal Allergies Seasonal Allergies: No Past Medical History Surgery/Hospitalization HX: MR, SCHIZOPHRENIA, EXPLOSIVE DISORDER, HTN, GERD, SEIZURES, DM2, RLS, KIDNEY FAILURE, HIGH CHOL, DIALYSIS. Surgeries: Yes Vascular Surgery Respiratory: No Cardiac: Yes Hypertension Neurological: Yes Developmental Disorder, Seizure Disorder Reproductive Disorders: No Sexually Transmitted Disease: No HIV/AIDS: No Genitourinary: Yes (End Stage Renal dz) Renal Failure, Dialysis Gastrointestinal: Yes (Gastroparesis ) Diverticulosis Musculoskeletal: Yes Fractures Endocrine: Yes Diabetes, Non-Insulin dep HEENT: Yes Loss of Vision: Bilateral Hearing Impairment: Denies Cancer: No Psychosocial: Yes (Intermittent Explosive Disorder ) Schizophrenia, Violent Behavior Integumentary: No Blood Disorders: No Adverse Reaction/Blood Tranf: No Family Medical History Other Conditions/Hx Physical Exam Vital Signs Vital Signs - First Documented 04/04/22 15:43 Temp 36.3 Pulse 106 Resp 18 B/P (MAP) 99/58 (72) Pulse Ox 100 Capillary Refill : Less Than 3 Seconds Height/Weight/BMI Height: 5'11" Weight: 250lbs. oz. [id number]; 32.00 BMI Method:Stated General Appearance: WD/WN, no apparent distress HEENT: PERRL/EOMI, normal ENT inspection, pharynx normal Neck: full range of motion, normal inspection Respiratory: lungs clear, normal breath sounds, no respiratory distress, no accessory muscle use Cardiovascular: normal peripheral pulses, regular rate, rhythm, no gallop Gastrointestinal: other (apx 12 cm area of dehiscence mid abdomen with subcutaneous tissue and pink small bowel protruding. No active bleeding. ) Extremities: normal range of motion, normal inspection Back: normal inspection Neurologic/Psychiatric: no motor/sensory deficits, alert, normal mood/affect, oriented x 3 Skin: normal color, warm/dry Progress/Results/Core Measures Results/Orders My Orders Orders - LILLIAM SANTIAGO APRN Fentanyl Inj (Sublimaze Injection) (04/04/22 17:00) Ns (Ivpb) (Sodium Chloride 0.9%) (04/04/22 17:00) Ns Iv 1000 Ml (Sodium Chloride 0.9%) (04/04/22 17:00) Albumin 25% 25 Gm/100 Ml (Albumin 25% 25 (04/04/22 17:00) Medications Given in ED Current Medications Medications Dose Ordered Sig/Agata Route Start Time Stop Time Status Last Admin Dose Admin Fentanyl Citrate 25 mcg ONCE ONCE IVP 04/04/22 17:00 04/04/22 17:04 DC 04/04/22 17:12 25 MCG Sodium Chloride 250 ml @ 999 mls/hr Q16M ONCE IV 04/04/22 17:00 04/04/22 17:15 DC 04/04/22 17:13 999 MLS/HR Vital Signs/I&O 04/04/22 15:43 Temp 36.3 Pulse 106 Resp 18 B/P (MAP) 99/58 (72) Pulse Ox 100 Blood Pressure Mean: 72 Progress Progress Note : Progress Note Vital signs stable. Upon entering room he has 4 x 4's and ABDs with tape in place. After removing dressing to evaluate incision site he was noted to have a significant wound dehisced with approximate 12 cm in width, notable pink small bowel and subcutaneous tissue protruding from surgical incision site. Dr. Lopez ED physician call to room for assistance. Immediately covered with 4 x 4 soaked in sterile saline. Consulted with Dr. Campos who is the general surgeon on-call, recommends patient transfer to [facility] for definitive care as there are no hemodialysis capabilities at this facility. Called [facility] for emergent transfer and was accepted by Dr. Caraballo. Was able to place 20-gauge via [facility] and obtain basic labs. Dr. Lopez was able to consult with his rush seater Dr. Beverly Rinaldi through [facility], due to his low were blood pressures she recommends normal saline to 50ml bolus followed by normal saline at 60ml per hour, Fentanyl 25 mcg, albumin 25%. Nursing staff contacted for different flight crew's and was declined due to weather. Was able to secure urgent transport with [facility] as next weather check per flight crew would be in 4 hours. Reviewed plan with [place] staff and they will update his guardian. Departure Impression Primary Impression: Surgical wound dehiscence Additional Impression: ESRD on hemodialysis Disposition: XFER SHT-TRM HOSP Condition: Stable Transfer Transfer Reason: Exceeds level of care Time Spoke to Accepting Phy: 16:30 Transfer Progress Notes [facility] Transfer Time: 17:09 Transfer Facility: [facility], transfer to pre/post op accepting provider Dr. Caraballo Method of Transfer: Air Departure-Patient Inst. Referrals: AMANDA CHOW MD (PCP/Family) Primary Care Physician LILLIAM SANTIAGO FUR TINTER Apr 04, 2022 16:35
[2022-04-04] MEDS ORDERED: fentaNYL INJ 100 MCG/2 ML AMP IVP ONE (17:00)
[2022-04-04] MEDS ORDERED: NS (IVPB) 250 ML IV ONE (17:00)
[2022-04-04] MEDS ORDERED: ALBUMIN 25% 25 GM/100 ML 100 ML IV ONE (17:00)
[2022-04-04] MEDS ORDERED: NS IV 1000 ML 1,000 ML IV ONE (17:00)
[2022-04-04 17:52] LABS: BASOPHILS # (AUTO) 0.1 10^3/uL (0.0-0.1); BASOPHILS % (AUTO) 1 % (0-10); EOSINOPHILS # (AUTO) 0.1 10^3/uL (0.0-0.3); EOSINOPHILS % (AUTO) 1 % (0-10); LYMPHOCYTES # (AUTO) 1.2 10^3/uL (1.0-4.0); LYMPHOCYTES % (AUTO) 8 % (12-44); MEAN CORPUSCULAR HEMOGLOBIN 28 pg (25-34); MEAN CORPUSCULAR HGB CONC 33 g/dL (32-36); MEAN CORPUSCULAR VOLUME 85 fL (80-99); MEAN PLATELET VOLUME 11.6 fL (9.0-12.2); MONOCYTES # (AUTO) 1.2 10^3/uL (0.0-1.0); MONOCYTES % (AUTO) 7 % (0-12); NEUTROPHILS # (AUTO) 13.1 10^3/uL (1.8-7.8); NEUTROPHILS % (AUTO) 83 % (42-75); PLATELET COUNT 489 10^3/uL (130-400); WHITE BLOOD COUNT 15.9 10^3/uL (4.3-11.0)
[2022-04-04 17:55] LABS: ALBUMIN 2.8 GM/DL (3.2-4.5); POTASSIUM 3.6 MMOL/L (3.6-5.0)
[2022-04-04 17:56] LABS: CALCIUM 7.3 MG/DL (8.5-10.1)
[2022-04-04 17:57] LABS: TOTAL PROTEIN 6.9 GM/DL (6.4-8.2)
[2022-04-04 17:59] LABS: BILIRUBIN,TOTAL 0.4 MG/DL (0.1-1.0)
[2022-04-04 18:01] LABS: CREATININE SERUM 5.67 MG/DL (0.60-1.30)
[2022-04-04 18:02] LABS: HEMATOCRIT 20 % (40-54); HEMOGLOBIN 6.6 g/dL (13.3-17.7)
--- NOTE | 2022-04-04 18:10 | Consultation - Surgery ---
History of Present Illness History of Present Illness Patient Consulted On(patricio/time) 04/04/22 18:04 Date Seen by Provider: Apr 04, 2022 Time Seen by Provider: 17:05 History of Present Illness Consult requested by Emelia Mcdonald for wound dehiscence. Patient is a 46-year-old male with end-stage renal disease requiring hemodialysis. Had hemodialysis today. Patient lives in assisted. Has slight developmental delay. Patient had wound VAC apparently and was being changed and nurse noted that there is a change in condition and concern for dehiscence and was transferred to the emergency department for further evaluation. Patient just recently discharged from where the patient was transferred due to his dialysis and also small bowel perforation which he apparently underwent a small bowel resection. Patient having some slight abdominal discomfort minimal to moderate. No other symptoms at this time. Denies any nausea vomiting fever sweats chills shortness of breath or chest pain at this time. Allergies and Home Medications Allergies Coded Allergies: Milk Containing Products (Unverified Allergy, Mild, 07/12/09) sulfamethoxazole (Unverified Allergy, Mild, 07/12/09) trimethoprim (Unverified Allergy, Mild, 07/12/09) Uncoded Allergies: [id number] (CHOCOLATE FLAVOR) (Allergy, Mild, 07/12/09) Patient Home Medication List Home Medication List Reviewed: Yes Acetaminophen (Tylenol Tablet) 325 Mg Tab, 650 MG PO Q6H PRN, (Reported) Entered as Reported by: ANNA PORTILLO on 10/24/121948 Albuterol Sulfate (Ventolin Hfa) 1 Puff Puff, 2 PUFF IH TID, (Reported) Entered as Reported by: ANNA PORTILLO on 10/24/121948 Albuterol Sulfate (Proventil) 0.83 Mg/Ml Solution, 0.83 MG IH TID PRN, (Reported) Entered as Reported by: ANNA PORTILLO on 10/24/121948 Aripiprazole (Abilify 15 Mg) 15 Mg Tab, 1 TAB PO DAILY, (Reported) Entered as Reported by: ANNA PORTILLO on 10/24/121948 Aspirin (Aspirin 81 Mg Chew Tab) 81 Mg Chew, 81 MG PO DAILY, (Reported) Entered as Reported by: ANNA PORTILLO on 10/24/121948 Calcium Acetate (Phoslo) 667 Mg Tablet, 2,668 MG PO AC, (Reported) Entered as Reported by: ANNA PORTILLO on 10/24/121948 Calcium Acetate (Phoslo) 667 Mg Tablet, 1,334 MG PO DAILY, (Reported) Entered as Reported by: ANNA PORTILLO on 10/24/121948 Cefdinir (Cefdinir) 300 Mg Capsule, 300 MG PO UD Prescribed by: SUDHAKAR MAN on 12/01/20 1303 Cetirizine HCl (Zyrtec) 10 Mg Tablet, 10 MG PO HS PRN for ITCHING, (Reported) Entered as Reported by: ANGY ANNA on 09/12/15337 Fluticasone Propionate (Flonase Allergy Relief) 9.9 Ml [place].susp, 9.9 ML NS PRN, (Reported) Entered as Reported by: ANGY ANNA on 09/12/15337 Lactobacillus Acidophilus (Acidophilus) 100 Mg Capsule, 100 MG PO DAILY, (Reported) Entered as Reported by: ANNA PORTILLO on 10/24/121948 Lanthanum Carbonate (Fosrenol) 1,000 Mg Tab.chew, 1,000 MG PO TID, (Reported) Entered as Reported by: ANGY ANNA on 09/12/15337 Lisinopril (Zestril) 20 Mg Tab, 20 MG PO HS, (Reported) Entered as Reported by: ANNA PORTILLO on 10/24/121948 Lorazepam (Ativan) 0.5 Mg Tablet, 0.5 MG PO BID, (Reported) Entered as Reported by: ANNA PORTILLO on 10/24/121948 Mag Hydrox/Al Hydrox/Simeth (Mylanta Liquid) 355 Ml Oral.susp, 20 ML PO Q6H PRN, (Reported) Entered as Reported by: ANNA PORTILLO on 10/24/121948 Menthol/Zinc Oxide (Gold Dang Medicated Body Powdr) 283 Gm Powder, 283 GM TP, (Reported) Entered as Reported by: ANNA PORTILLO on 10/24/121948 Metoclopramide Hcl (Reglan 10 Mg Tab) 10 Mg Tab, 1 EACH PO BID, (Reported) Entered as Reported by: ANNA PORTILLO on 10/24/121948 Metoprolol Tartrate (Metoprolol Tartrate) 50 Mg Tablet, 50 MG PO DAILY, (Reported) Entered as Reported by: ANGY ANNA on 09/12/15 0338 Ropinirole Hcl (Requip) 0.25 Mg Tab, 1 TAB PO HS, (Reported) Entered as Reported by: ANNA PORTILLO on 10/24/121948 Sodium Bicarbonate (Sodium Bicarbonate) 1 Meq/1 Ml Disp.syrin, 650 MG PO BID, (Reported) Entered as Reported by: ANNA PORTILLO on 10/24/121948 Topiramate (Topamax 100 Mg) 100 Mg Tab, 100 MG PO TID, (Reported) Entered as Reported by: ANNA PORTILLO on 10/24/121948 Tramadol Hcl (Ultram) 50 Mg Tab, 50 MG PO BID, (Reported) Entered as Reported by: ANNA PORTILLO on 10/24/121948 Venlafaxine Hcl (Effexor) 50 Mg Tablet, 0.5 EACH PO BID, (Reported) Entered as Reported by: ANNA PORTILLO on 10/24/121948 [sensipar] , 120 MG PO DAILY, (Reported) Entered as Reported by: ANNA PORTILLO on 10/24/121948 Past Hsmjbkg-Zoyglc-Qaimld Hx Patient Social History Smoking Status: Former Smoker Type Used: Cigarettes Recent Hopitalizations: No Alcohol Use?: No Immunizations Up To Date Tetanus Booster (TDap): Less than 5yrs Seasonal Allergies Seasonal Allergies: No Surgeries History of Surgeries: Yes Surgeries: Bowel Surgery, Vascular Surgery Respiratory History of Respiratory Disorde: No Cardiovascular History of Cardiac Disorders: Yes Cardiac Disorders: Hypertension Neurological History of Neurological Disord: Yes Neurological Disorders: Developmental Disorder, Seizure Disorder Reproductive System Hx Reproductive Disorders: No Sexually Transmitted Disease: No HIV/AIDS: No Genitourinary History of Genitourinary Disor: Yes (End Stage Renal dz) Genitourinary Disorders: Renal Failure, Dialysis Gastrointestinal History of Gastrointestinal Di: Yes (Gastroparesis ) Gastrointestinal Disorders: Diverticulosis Musculoskeletal History of Musculoskeletal Dis: Yes Musculoskeletal Disorders: Fractures Endocrine History of Endocrine Disorders: Yes Endocrine Disorders: Diabetes, Non-Insulin dep HEENT History of HEENT Disorders: Yes Loss of Vision: Bilateral Hearing Impairment: Denies Cancer History of Cancer: No Psychosocial History of Psychiatric Problem: Yes (Intermittent Explosive Disorder ) Behavioral Health Disorders: Schizophrenia, Violent Behavior Integumentary History of Skin or Integumenta: No Blood Transfusions History of Blood Disorders: No Adverse Reaction to a Blood Tr: No Reviewed Nursing Assessment Reviewed/Agree w Nursing PMH: Yes Family Medical History Significant Family History: No Pertinent Family Hx, Other Conditions/Hx Review of Systems-General Constitutional: No chills, No diaphoresis EENTM: No blurred vision, No double vision Respiratory: No cough, No dyspnea on exertion Cardiovascular: No chest pain, No palpitations Gastrointestinal: abdominal pain; No nausea, No vomiting; other (Dehiscence) Genitourinary: No decreased output, No discharge Musculoskeletal: No back pain, No joint pain Skin: No change in color, No change in hair/nails Psychiatric/Neurological: Denies Anxiety, Denies Depressed, Denies Emotional Problems All Other Systems Reviewed Negative Unless Noted: Yes (Negative excepted noted.) Physical Exam-General Problems Physical Exam Vital Signs Vital Signs - First Documented 04/04/22 15:43 Temp 36.3 Pulse 106 Resp 18 B/P (MAP) 99/58 (72) Pulse Ox 100 Capillary Refill : Less Than 3 Seconds General Appearance: no apparent distress, obese HEENT: PERRL/EOMI, normal ENT inspection Neck: non-tender, supple Respiratory: chest non-tender, no respiratory distress, no accessory muscle use Cardiovascular: regular rate, rhythm, no JVD Gastrointestinal: soft, other (Dehiscence of abdominal incision) Rectal: deferred Back: normal inspection, no CVA tenderness Extremities: non-tender, normal inspection, other (Fistula left upper extremity) Neurologic/Psychiatric: alert, normal mood/affect Skin: normal color, warm/dry Data Review Labs Laboratory Tests 04/04/22 16:48: White Blood Count 15.9H, Red Blood Count 2.39L, Hemoglobin 6.6*L, Hematocrit 20*L, Mean Corpuscular Volume 85, Mean Corpuscular Hemoglobin 28, Mean Corpuscular Hemoglobin Concent 33, Red Cell Distribution Width 17.2H, Platelet Count 489H, Mean Platelet Volume 11.6, Immature Granulocyte % (Auto) 1, Neutrophils (%) (Auto) 83H, Lymphocytes (%) (Auto) 8L, Monocytes (%) (Auto) 7, Eosinophils (%) (Auto) 1, Basophils (%) (Auto) 1, Neutrophils # (Auto) 13.1H, Lymphocytes # (Auto) 1.2, Monocytes # (Auto) 1.2H, Eosinophils # (Auto) 0.1, Basophils # (Auto) 0.1, Immature Granulocyte # (Auto) 0.2H, Sodium Level 137, Potassium Level 3.6, Chloride Level 91L, Carbon Dioxide Level 30, Anion Gap 16H, Blood Urea Nitrogen 16, Estimat Glomerular Filtration Rate 12, BUN/Creatinine Ratio 3, Glucose Level 81, Calcium Level 7.3L, Corrected Calcium 8.3L, Total Bilirubin 0.4, Aspartate Amino Transf (AST/SGOT) 25, Alanine Aminotransferase (ALT/SGPT) 9, Alkaline Phosphatase 103, Total Protein 6.9, Albumin 2.8L Assessment/Plan Assessment/Plan Assessment/Plan End-stage renal disease requiring dialysis Abdominal incision dehiscence Recent small bowel resection secondary to bowel perforation. Obesity Patient is a 46-year-old male who was having wound VAC changed and was noted to have dehiscence of abdominal incision. Patient will need closure. He is a dialysis patient. Will need to be admitted postoperatively. We do not have capabilities of dialysis at our facility. The emergency department is trying to transfer the patient at this time if unable to transfer will need to do surgery and then attempt transfer. Patient understands and agrees with plan. IGNACIO LAKE DO Apr 04, 2022 18:10
[2022-04-04 18:15] LABS: ANISOCYTOSIS MARKED; BAND NEUTROPHILS 0 %; BASOPHILS % (MANUAL) 0 %; EOSINOPHILS % (MANUAL) 0 %; HYPOCHROMASIA MODERATE; LYMPHOCYTES % (MANUAL) 9 %; MONOCYTES % (MANUAL) 6 %; NEUTROPHILS % (MANUAL) 85 %; POLYCHROMASIA SLIGHT; TARGET CELLS MODERATE
[2022-04-04] MEDS ORDERED: fentaNYL INJ 100 MCG/2 ML AMP ONE (18:31)
[2022-04-04 18:35] VITALS: BP 90/66
== END 2022-04-04 18:35 | disposition short-term general hospital (02) ==
LOC: EDUNIT# 15:37 → ER 15:40
DX: T81.31XA Disruption of external operation (surgical) wound, not elsewhere classified, initial encounter (principal); I12.0 Hypertensive chronic kidney disease with stage 5 chronic kidney disease or end stage renal disease; E11.22 Type 2 diabetes mellitus with diabetic chronic kidney disease; N18.6 End stage renal disease; Z99.2 Dependence on renal dialysis; Z87.891 Personal history of nicotine dependence
CPT/HCPCS: 36415; 80053; 85007; 85027

== ENCOUNTER 2022-04-27 15:23 | Emergency (ER) | payer MEDICAID ==
[~2022-04-27] VITALS: Ht 175 cm; Wt 88.0 kg
--- NOTE | 2022-04-27 15:38 | ED Abdominal Pain ---
General Chief Complaint: Abdominal/GI Problems Stated Complaint: CDIFF Nursing Triage Note: PT PRESENTS TO ED VIA EMS FROM [facility] FOR DEHYDRATION, C-DIFF, VOMITING STARTING THIS AM. HALF-WAY STAFF REPORTS HYPOTENSION AND BRADYCARDIA. Source of Information: Patient Exam Limitations: No Limitations History of Present Illness Date Seen by Provider: Apr 27, 2022 Time Seen by Provider: 15:38 Allergies and Home Medications Allergies Coded Allergies: Milk Containing Products (Unverified Allergy, Mild, 07/12/09) sulfamethoxazole (Unverified Allergy, Mild, 07/12/09) trimethoprim (Unverified Allergy, Mild, 07/12/09) Uncoded Allergies: [id number] (CHOCOLATE FLAVOR) (Allergy, Mild, 07/12/09) Patient Home Medication List Acetaminophen (Tylenol Tablet) 325 Mg Tab, 650 MG PO Q6H PRN, (Reported) Entered as Reported by: ANNA PORTILLO on 10/24/121948 Albuterol Sulfate (Ventolin Hfa) 1 Puff Puff, 2 PUFF IH TID, (Reported) Entered as Reported by: ANNA PORTILLO on 10/24/121948 Albuterol Sulfate (Proventil) 0.83 Mg/Ml Solution, 0.83 MG IH TID PRN, (Reported) Entered as Reported by: ANNA PORTILLO on 10/24/121948 Aripiprazole (Abilify 15 Mg) 15 Mg Tab, 1 TAB PO DAILY, (Reported) Entered as Reported by: ANNA PORTILLO on 10/24/121948 Aspirin (Aspirin 81 Mg Chew Tab) 81 Mg Chew, 81 MG PO DAILY, (Reported) Entered as Reported by: ANNA PORTILLO on 10/24/121948 Calcium Acetate (Phoslo) 667 Mg Tablet, 2,668 MG PO AC, (Reported) Entered as Reported by: ANNA PORTILLO on 10/24/121948 Calcium Acetate (Phoslo) 667 Mg Tablet, 1,334 MG PO DAILY, (Reported) Entered as Reported by: ANNA PORTILLO on 10/24/121948 Cefdinir (Cefdinir) 300 Mg Capsule, 300 MG PO UD Prescribed by: SUDHAKAR MAN on 12/01/20 1303 Cetirizine HCl (Zyrtec) 10 Mg Tablet, 10 MG PO HS PRN for ITCHING, (Reported) Entered as Reported by: ANGY ANNA on 09/12/15337 Fluticasone Propionate (Flonase Allergy Relief) 9.9 Ml Davin.susp, 9.9 ML NS PRN, (Reported) Entered as Reported by: ANGY ANNA on 09/12/15337 Lactobacillus Acidophilus (Acidophilus) 100 Mg Capsule, 100 MG PO DAILY, (Reported) Entered as Reported by: ANNA PORTILLO on 10/24/121948 Lanthanum Carbonate (Fosrenol) 1,000 Mg Tab.chew, 1,000 MG PO TID, (Reported) Entered as Reported by: ANGY ANNA on 09/12/15337 Lisinopril (Zestril) 20 Mg Tab, 20 MG PO HS, (Reported) Entered as Reported by: ANNA PORTILLO on 10/24/121948 Lorazepam (Ativan) 0.5 Mg Tablet, 0.5 MG PO BID, (Reported) Entered as Reported by: ANNA PORTILLO on 10/24/121948 Mag Hydrox/Al Hydrox/Simeth (Mylanta Liquid) 355 Ml Oral.susp, 20 ML PO Q6H PRN, (Reported) Entered as Reported by: ANNA PORTILLO on 10/24/121948 Menthol/Zinc Oxide (Gold Dang Medicated Body Powdr) 283 Gm Powder, 283 GM TP, (Reported) Entered as Reported by: ANNA PORTILLO on 10/24/121948 Metoclopramide Hcl (Reglan 10 Mg Tab) 10 Mg Tab, 1 EACH PO BID, (Reported) Entered as Reported by: ANNA PORTILLO on 10/24/121948 Metoprolol Tartrate (Metoprolol Tartrate) 50 Mg Tablet, 50 MG PO DAILY, (Reported) Entered as Reported by: ANGY ANNA on 09/12/15337 Ropinirole Hcl (Requip) 0.25 Mg Tab, 1 TAB PO HS, (Reported) Entered as Reported by: ANNA PORTILLO on 10/24/121948 Sodium Bicarbonate (Sodium Bicarbonate) 1 Meq/1 Ml Disp.syrin, 650 MG PO BID, (Reported) Entered as Reported by: ANNA PORTILLO on 10/24/121948 Topiramate (Topamax 100 Mg) 100 Mg Tab, 100 MG PO TID, (Reported) Entered as Reported by: ANNA PORTILLO on 10/24/121948 Tramadol Hcl (Ultram) 50 Mg Tab, 50 MG PO BID, (Reported) Entered as Reported by: ANNA PORTILLO on 10/24/121948 Venlafaxine Hcl (Effexor) 50 Mg Tablet, 0.5 EACH PO BID, (Reported) Entered as Reported by: ANNA PORTILLO on 10/24/121948 [sensipar] , 120 MG PO DAILY, (Reported) Entered as Reported by: ANNA PORTILLO on 10/24/121948 Past Txnbobk-Lnychb-Kgwfxu Hx Patient Social History Tobacco Use?: No Smoking Status: Former Smoker Substance use?: No Alcohol Use?: No Pt feels they are or have been: No Immunizations Up To Date Tetanus Booster (TDap): Less than 5yrs First/Initial COVID19 Vaccinat: YES Second COVID19 Vaccination Arnold: YES Third COVID19 Vaccination Date: UNKNOWN Seasonal Allergies Seasonal Allergies: No Past Medical History Surgery/Hospitalization HX: MR, SCHIZOPHRENIA, EXPLOSIVE DISORDER, HTN, GERD, SEIZURES, DM2, RLS, KIDNEY FAILURE, HIGH CHOL, DIALYSIS, C-DIFF, WOUND VAC Surgeries: Yes Bowel Surgery, Vascular Surgery Respiratory: No Cardiac: Yes Hypertension Neurological: Yes Developmental Disorder, Seizure Disorder Reproductive Disorders: No Sexually Transmitted Disease: No HIV/AIDS: No Genitourinary: Yes (End Stage Renal dz) Renal Failure, Dialysis Gastrointestinal: Yes (Gastroparesis ) Diverticulosis Musculoskeletal: Yes Fractures Endocrine: Yes Diabetes, Non-Insulin dep HEENT: Yes Loss of Vision: Bilateral Hearing Impairment: Denies Cancer: No Psychosocial: Yes (Intermittent Explosive Disorder ) Schizophrenia, Violent Behavior Integumentary: No Blood Disorders: No Adverse Reaction/Blood Tranf: No Family Medical History No Pertinent Family Hx, Other Conditions/Hx Physical Exam Vital Signs Vital Signs - First Documented 04/27/22 15:26 Temp 37.8 Pulse 102 Resp 18 B/P (MAP) 127/95 (106) Pulse Ox 100 Capillary Refill : Less Than 3 Seconds Height/Weight/BMI Height: 5'11" Weight: 250lbs. oz. [id number]; 28.00 BMI Method:Stated Progress/Results/Core Measures Results/Orders Lab Results Laboratory Tests Test 04/27/22 16:13 04/27/22 16:25 Range/Units Glucometer 103 70-110 MG/DL White Blood Count 9.5 4.3-11.0 10^3/uL Red Blood Count 2.60 L 4.30-5.52 10^6/uL Hemoglobin 7.5 L 13.3-17.7 g/dL Hematocrit 24 L 40-54 % Mean Corpuscular Volume 91 80-99 fL Mean Corpuscular Hemoglobin 29 25-34 pg Mean Corpuscular Hemoglobin Concent 32 32-36 g/dL Red Cell Distribution Width 14.9 H 10.0-14.5 % Platelet Count 340 130-400 10^3/uL Mean Platelet Volume 10.4 9.0-12.2 fL Immature Granulocyte % (Auto) 0 % Neutrophils (%) (Auto) 66 42-75 % Lymphocytes (%) (Auto) 17 12-44 % Monocytes (%) (Auto) 11 0-12 % Eosinophils (%) (Auto) 4 0-10 % Basophils (%) (Auto) 1 0-10 % Neutrophils # (Auto) 6.3 1.8-7.8 10^3/uL Lymphocytes # (Auto) 1.6 1.0-4.0 10^3/uL Monocytes # (Auto) 1.1 H 0.0-1.0 10^3/uL Eosinophils # (Auto) 0.4 H 0.0-0.3 10^3/uL Basophils # (Auto) 0.1 0.0-0.1 10^3/uL Immature Granulocyte # (Auto) 0.0 0.0-0.1 10^3/uL Sodium Level 137 135-145 MMOL/L Potassium Level 3.7 3.6-5.0 MMOL/L Chloride Level 95 L 98-107 MMOL/L Carbon Dioxide Level 33 H 21-32 MMOL/L Anion Gap 9 5-14 MMOL/L Blood Urea Nitrogen 9 7-18 MG/DL Creatinine 4.29 H 0.60-1.30 MG/DL Estimat Glomerular Filtration Rate 16 BUN/Creatinine Ratio 2 Glucose Level 99 70-105 MG/DL Calcium Level 8.0 L 8.5-10.1 MG/DL Corrected Calcium 8.9 8.5-10.1 MG/DL Total Bilirubin 0.3 0.1-1.0 MG/DL Aspartate Amino Transf (AST/SGOT) 24 5-34 U/L Alanine Aminotransferase (ALT/SGPT) 18 0-55 U/L Alkaline Phosphatase 111 40-136 U/L Total Protein 7.3 6.4-8.2 GM/DL Albumin 2.9 L 3.2-4.5 GM/DL My Orders Orders - LILLIAM SANTIAGO FAMILY MANAGER Ed Iv/Invasive Line Start (04/27/22 15:38) Ns (Ivpb) (Sodium Chloride 0.9%) (04/27/22 15:45) Cbc With Automated Diff (04/27/22 15:38) Comprehensive Metabolic Panel (04/27/22 15:38) Accucheck Stat ONCE (04/27/22 16:09) Medications Given in ED Current Medications Medications Dose Ordered Sig/Agata Route Start Time Stop Time Status Last Admin Dose Admin Sodium Chloride 250 ml @ 999 mls/hr Q16M ONCE IV 04/27/22 15:45 04/27/22 16:00 DC 04/27/22 16:34 999 MLS/HR Vital Signs/I&O 04/27/22 15:26 Temp 37.8 Pulse 102 Resp 18 B/P (MAP) 127/95 (106) Pulse Ox 100 Blood Pressure Mean: 106 Departure Impression Primary Impression: C. difficile enteritis Additional Impression: ESRD on hemodialysis Disposition: 01 HOME, SELF-CARE Condition: Improved Departure-Patient Inst. Decision time for Depature: 17:46 Referrals: AMANDA CHOW MD (PCP/Family) Primary Care Physician Patient Instructions: Clostridioides difficile ED Add. Discharge Instructions: Plan: 1. Take antibiotics and medications as previously directed. 2. Make sure you are drinking plenty of fluids to stay hydrated. 3. Return to the ER for any new, concerning, worsening symptoms. All discharge instructions reviewed with patient and/or family. Voiced understanding. LILLIAM SANTIAGO FAMILY MANAGER Apr 27, 2022 15:38
[2022-04-27] MEDS ORDERED: NS (IVPB) 250 ML IV ONE (15:45)
[2022-04-27 16:33] LABS: BASOPHILS # (AUTO) 0.1 10^3/uL (0.0-0.1); BASOPHILS % (AUTO) 1 % (0-10); EOSINOPHILS # (AUTO) 0.4 10^3/uL (0.0-0.3); EOSINOPHILS % (AUTO) 4 % (0-10); HEMATOCRIT 24 % (40-54); HEMOGLOBIN 7.5 g/dL (13.3-17.7); LYMPHOCYTES # (AUTO) 1.6 10^3/uL (1.0-4.0); LYMPHOCYTES % (AUTO) 17 % (12-44); MEAN CORPUSCULAR HEMOGLOBIN 29 pg (25-34); MEAN CORPUSCULAR HGB CONC 32 g/dL (32-36); MEAN CORPUSCULAR VOLUME 91 fL (80-99); MEAN PLATELET VOLUME 10.4 fL (9.0-12.2); MONOCYTES # (AUTO) 1.1 10^3/uL (0.0-1.0); MONOCYTES % (AUTO) 11 % (0-12); NEUTROPHILS # (AUTO) 6.3 10^3/uL (1.8-7.8); NEUTROPHILS % (AUTO) 66 % (42-75); PLATELET COUNT 340 10^3/uL (130-400); WHITE BLOOD COUNT 9.5 10^3/uL (4.3-11.0)
[2022-04-27 16:56] LABS: ALBUMIN 2.9 GM/DL (3.2-4.5)
[2022-04-27 16:57] LABS: POTASSIUM 3.7 MMOL/L (3.6-5.0)
[2022-04-27 16:59] LABS: TOTAL PROTEIN 7.3 GM/DL (6.4-8.2)
[2022-04-27 17:01] LABS: BILIRUBIN,TOTAL 0.3 MG/DL (0.1-1.0)
[2022-04-27 17:02] LABS: CREATININE SERUM 4.29 MG/DL (0.60-1.30)
[2022-04-27 18:02] VITALS: BP 105/73
== END 2022-04-27 18:02 | disposition home or self-care (01) ==
LOC: EDUNIT# 15:23 → ER 15:24
DX: A04.72 Enterocolitis due to Clostridium difficile, not specified as recurrent (principal); I12.0 Hypertensive chronic kidney disease with stage 5 chronic kidney disease or end stage renal disease; E11.22 Type 2 diabetes mellitus with diabetic chronic kidney disease; N18.6 End stage renal disease; Z87.891 Personal history of nicotine dependence; Z99.2 Dependence on renal dialysis
CPT/HCPCS: 36415; 80053; 82947; 85025

== ENCOUNTER → 2022-05-03 | Outpatient (CLI) | payer MEDICAID | LOC: WOUNDCARE 09:40 | PROVIDERS: ATTEND Family Medicine | DX: T81.31XA Disruption of external operation (surgical) wound, not elsewhere classified, initial encounter (principal); T83.728A Exposure of other implanted mesh into organ or tissue, initial encounter; E11.22 Type 2 diabetes mellitus with diabetic chronic kidney disease; N18.6 End stage renal disease; E43 Unspecified severe protein-calorie malnutrition; D63.1 Anemia in chronic kidney disease; F70 Mild intellectual disabilities; E66.01 Morbid (severe) obesity due to excess calories | CPT/HCPCS: 11042; 11045; G0463 ==

== ENCOUNTER → 2022-05-10 | Outpatient (CLI) | payer MEDICAID | LOC: WOUNDCARE 09:36 | PROVIDERS: ATTEND Family Medicine | DX: T81.31XA Disruption of external operation (surgical) wound, not elsewhere classified, initial encounter (principal); T83.728A Exposure of other implanted mesh into organ or tissue, initial encounter; E11.22 Type 2 diabetes mellitus with diabetic chronic kidney disease; E11.52 Type 2 diabetes mellitus with diabetic peripheral angiopathy with gangrene; I96 Gangrene, not elsewhere classified; N18.6 End stage renal disease; E43 Unspecified severe protein-calorie malnutrition; D63.1 Anemia in chronic kidney disease; F70 Mild intellectual disabilities; E66.01 Morbid (severe) obesity due to excess calories; Z68.26 Body mass index [BMI] 26.0-26.9, adult | CPT/HCPCS: 11042; 11045; G0463 ==

== ENCOUNTER → 2022-05-17 | Outpatient (CLI) | payer MEDICAID | LOC: WOUNDCARE 09:30 | PROVIDERS: ATTEND Family Medicine | DX: I96 Gangrene, not elsewhere classified (principal); T81.31XA Disruption of external operation (surgical) wound, not elsewhere classified, initial encounter; T83.728A Exposure of other implanted mesh into organ or tissue, initial encounter; N18.6 End stage renal disease; E43 Unspecified severe protein-calorie malnutrition; F70 Mild intellectual disabilities; D63.1 Anemia in chronic kidney disease; E66.01 Morbid (severe) obesity due to excess calories; E11.9 Type 2 diabetes mellitus without complications; Z68.26 Body mass index [BMI] 26.0-26.9, adult | CPT/HCPCS: 11042; 11045; A6197; A6234; G0463 ==

== ENCOUNTER → 2022-05-18 | Outpatient (CLI) | payer MEDICAID | LOC: CARD 13:30 | PROVIDERS: ATTEND Internal Medicine Cardiovascular Disease | DX: I11.9 Hypertensive heart disease without heart failure (principal) | CPT/HCPCS: 93306 ==

== ENCOUNTER → 2022-05-24 | Outpatient (CLI) | payer MEDICAID | LOC: WOUNDCARE 09:12 | PROVIDERS: ATTEND Family Medicine | DX: T81.31XA Disruption of external operation (surgical) wound, not elsewhere classified, initial encounter (principal); T83.728A Exposure of other implanted mesh into organ or tissue, initial encounter; N18.6 End stage renal disease; E11.9 Type 2 diabetes mellitus without complications; E43 Unspecified severe protein-calorie malnutrition; D63.1 Anemia in chronic kidney disease; F70 Mild intellectual disabilities; E66.01 Morbid (severe) obesity due to excess calories; E11.52 Type 2 diabetes mellitus with diabetic peripheral angiopathy with gangrene | CPT/HCPCS: 11042; 11045; 87070; 87077; 87205; A6021; G0463 ==

== ENCOUNTER 2022-06-01 15:52 | Emergency (ER) | payer MEDICAID ==
[~2022-06-01] VITALS: Ht 172.7 cm; Wt 88.0 kg
--- NOTE | 2022-06-01 16:52 | ED General ---
General Chief Complaint: General Problems/Pain Stated Complaint: CRITICAL LABS Source of Information: Patient, Caregiver Exam Limitations: No Limitations (HÉCTOR GREGORIO MD) History of Present Illness Date Seen by Provider: Jun 01, 2022 Time Seen by Provider: 16:00 Initial Comments Patient is a 47-year-old male with history of intellectual disability, diabetes, end-stage renal disease who presents to the emergency department today with a chief complaint of "critical labs". Patient had dialysis today states he completed 3-1/2 hours. Apparently he had baseline labs drawn prior to dialysis and was called this afternoon for elevated potassium at 6. Patient looks great, no acute distress, stable vital signs. He states he does feel little short of breath. He states they did not take off much fluid today because he started a little bit low. No recent fevers or chills. No nausea or vomiting. He does not make urine anymore. Last bowel movement was today. He recently underwent significant abdominal surgery and has a wound VAC in place over the anterior abdominal wall secondary to intestinal perforation. This appears to be healing well. He is comfortable, jovial smiling and in a great mood. Associated Systoms: Shortness of Air (HÉCTOR GREGORIO MD) Allergies and Home Medications Allergies Coded Allergies: Milk Containing Products (Unverified Allergy, Mild, 07/12/09) sulfamethoxazole (Unverified Allergy, Mild, 07/12/09) trimethoprim (Unverified Allergy, Mild, 07/12/09) Uncoded Allergies: [id number] (CHOCOLATE FLAVOR) (Allergy, Mild, 07/12/09) Patient Home Medication List Home Medication List Reviewed: Yes (HÉCTOR GREGORIO MD) Acetaminophen (Tylenol Tablet) 325 Mg Tab, 650 MG PO Q6H PRN, (Reported) Entered as Reported by: ANNA PORTILLO on 10/24/121948 Albuterol Sulfate (Ventolin Hfa) 1 Puff Puff, 2 PUFF IH TID, (Reported) Entered as Reported by: ANNA PORTILLO on 10/24/121948 Albuterol Sulfate (Proventil) 0.83 Mg/Ml Solution, 0.83 MG IH TID PRN, (Reported) Entered as Reported by: ANNA PORTILLO on 10/24/121948 Aripiprazole (Abilify 15 Mg) 15 Mg Tab, 1 TAB PO DAILY, (Reported) Entered as Reported by: ANNA PORTILLO on 10/24/121948 Aspirin (Aspirin 81 Mg Chew Tab) 81 Mg Chew, 81 MG PO DAILY, (Reported) Entered as Reported by: ANNA PORTILLO on 10/24/121948 Calcium Acetate (Phoslo) 667 Mg Tablet, 2,668 MG PO AC, (Reported) Entered as Reported by: ANNA PORTILLO on 10/24/121948 Calcium Acetate (Phoslo) 667 Mg Tablet, 1,334 MG PO DAILY, (Reported) Entered as Reported by: ANNA PORTILLO on 10/24/121948 Cefdinir (Cefdinir) 300 Mg Capsule, 300 MG PO UD Prescribed by: SUDHAKAR MAN on 12/01/20 130 Cetirizine HCl (Zyrtec) 10 Mg Tablet, 10 MG PO HS PRN for ITCHING, (Reported) Entered as Reported by: ANGY ANNA on 09/12/15337 Fluticasone Propionate (Flonase Allergy Relief) 9.9 Ml Roby.susp, 9.9 ML NS PRN, (Reported) Entered as Reported by: ANGY ANNA on 09/12/15337 Lactobacillus Acidophilus (Acidophilus) 100 Mg Capsule, 100 MG PO DAILY, (Reported) Entered as Reported by: ANNA PORTILLO on 10/24/121948 Lanthanum Carbonate (Fosrenol) 1,000 Mg Tab.chew, 1,000 MG PO TID, (Reported) Entered as Reported by: ANGY ANNA on 09/12/15337 Lisinopril (Zestril) 20 Mg Tab, 20 MG PO HS, (Reported) Entered as Reported by: ANNA PORTILLO on 10/24/121948 Lorazepam (Ativan) 0.5 Mg Tablet, 0.5 MG PO BID, (Reported) Entered as Reported by: ANNA PORTILLO on 10/24/121948 Mag Hydrox/Al Hydrox/Simeth (Mylanta Liquid) 355 Ml Oral.susp, 20 ML PO Q6H PRN, (Reported) Entered as Reported by: ANNA PORTILLO on 10/24/121948 Menthol/Zinc Oxide (Gold Dang Medicated Body Powdr) 283 Gm Powder, 283 GM TP, (Reported) Entered as Reported by: ANNA PORTILLO on 10/24/121948 Metoclopramide Hcl (Reglan 10 Mg Tab) 10 Mg Tab, 1 EACH PO BID, (Reported) Entered as Reported by: ANNA PORTILLO on 10/24/121948 Metoprolol Tartrate (Metoprolol Tartrate) 50 Mg Tablet, 50 MG PO DAILY, (Reported) Entered as Reported by: ANGY ANNA on 09/12/15337 Ropinirole Hcl (Requip) 0.25 Mg Tab, 1 TAB PO HS, (Reported) Entered as Reported by: ANNA PORTILLO on 10/24/121948 Sodium Bicarbonate (Sodium Bicarbonate) 1 Meq/1 Ml Disp.syrin, 650 MG PO BID, (Reported) Entered as Reported by: ANNA PORTILLO on 10/24/121948 Topiramate (Topamax 100 Mg) 100 Mg Tab, 100 MG PO TID, (Reported) Entered as Reported by: ANNA PORTILLO on 10/24/121948 Tramadol Hcl (Ultram) 50 Mg Tab, 50 MG PO BID, (Reported) Entered as Reported by: ANNA PORTILLO on 10/24/121948 Venlafaxine Hcl (Effexor) 50 Mg Tablet, 0.5 EACH PO BID, (Reported) Entered as Reported by: ANNA PORTILLO on 10/24/121948 [sensipar] , 120 MG PO DAILY, (Reported) Entered as Reported by: ANNA PORTILLO on 10/24/121948 Review of Systems Review of Systems Constitutional: see HPI EENTM: no symptoms reported Respiratory: short of breath Cardiovascular: no symptoms reported Gastrointestinal: no symptoms reported Musculoskeletal: no symptoms reported Skin: no symptoms reported (HÉCTOR GREGORIO MD) Past Yaiztue-Zuipof-Oeqgdg Hx Immunizations Up To Date Tetanus Booster (TDap): Less than 5yrs First/Initial COVID19 Vaccinat: YES Second COVID19 Vaccination Arnold: YES Third COVID19 Vaccination Date: UNKNOWN (HÉCTOR GREOGRIO MD) Seasonal Allergies Seasonal Allergies: No (HÉCTOR GREGORIO MD) Past Medical History Surgery/Hospitalization HX: MR, SCHIZOPHRENIA, EXPLOSIVE DISORDER, HTN, GERD, SEIZURES, DM2, RLS, KIDNEY FAILURE, HIGH CHOL, DIALYSIS, C-DIFF, WOUND VAC Surgeries: Yes Bowel Surgery, Vascular Surgery Respiratory: No Cardiac: Yes Hypertension Neurological: Yes Developmental Disorder, Seizure Disorder Reproductive Disorders: No Sexually Transmitted Disease: No HIV/AIDS: No Genitourinary: Yes (End Stage Renal dz) Renal Failure, Dialysis Gastrointestinal: Yes (Gastroparesis ) Diverticulosis Musculoskeletal: Yes Fractures Endocrine: Yes Diabetes, Non-Insulin dep HEENT: Yes Loss of Vision: Bilateral Hearing Impairment: Denies Cancer: No Psychosocial: Yes (Intermittent Explosive Disorder ) Schizophrenia, Violent Behavior Integumentary: No Blood Disorders: No Adverse Reaction/Blood Tranf: No (HÉCTOR GREGORIO MD) Family Medical History No Pertinent Family Hx, Other Conditions/Hx (HÉCTOR GREGORIO MD) Physical Exam Vital Signs Capillary Refill : (HÉCTOR GREGORIO MD) Height, Weight, BMI Height: 5'11" Weight: 250lbs. oz. 113.752578pq; 28.00 BMI Method:Stated General Appearance: No Apparent Distress, WD/WN, Other (Smiling, jovial, joking with staff) Eyes: Bilateral Eye Normal Inspection, Bilateral Eye PERRL, Bilateral Eye EOMI Neck: Normal Inspection Respiratory: Lungs Clear, Normal Breath Sounds, No Accessory Muscle Use, No Respiratory Distress Cardiovascular: Regular Rate, Rhythm Gastrointestinal: Non Tender, Soft, Other (Midline abdominal wound with wound VAC in place, skin around the periphery of the wound VAC looks good, no erythema. No significant drainage. No significant tenderness.) Extremity: Normal Capillary Refill, Normal Inspection, Normal Range of Motion Neurologic/Psychiatric: Alert, Oriented x3, No Motor/Sensory Deficits, Normal Mood/Affect Skin: Normal Color, Warm/Dry (HÉCTOR GREGORIO MD) Progress/Results/Core Measures Suspected Sepsis SIRS Temperature: Pulse: Respiratory Rate: Blood Pressure / Mean: (HÉCTOR GREGORIO MD) Results/Orders Lab Results Laboratory Tests Test 06/01/22 16:46 Range/Units Sodium Level 141 135-145 MMOL/L Potassium Level 4.7 3.6-5.0 MMOL/L Chloride Level 95 L 98-107 MMOL/L Carbon Dioxide Level 34 H 21-32 MMOL/L Anion Gap 12 5-14 MMOL/L Blood Urea Nitrogen 18 7-18 MG/DL Creatinine 5.24 H 0.60-1.30 MG/DL Estimat Glomerular Filtration Rate 13 BUN/Creatinine Ratio 3 Glucose Level 96 70-105 MG/DL Calcium Level 10.3 H 8.5-10.1 MG/DL (RADHA HILLS DO) Vital Signs/I&O Capillary Refill : (HÉCTOR GREGORIO MD) Departure Communication (Admissions) The patient is hemodynamically stable. His potassium is normal here today. He is slightly hypotensive in the mid 90s systolic but he is asymptomatic with no dizziness, lightheadedness, chest pain with normal mentation and ambulation.. There is no evidence for infection at this time. This is likely related to dialysis and we will refrain from giving him fluids here as he is asymptomatic. His potassium is normal as stated and he has a normal EKG. Will discharge home to continue dialysis as previously scheduled. (RADHA HILLS DO) Impression Primary Impression: Encounter for medical screening examination Additional Impression: ESRD on dialysis Disposition: HOME, SELF-CARE Condition: Stable Departure-Patient Inst. Referrals: AMANDA CHOW MD (PCP/Family) Primary Care Physician Patient Instructions: End Stage Kidney Disease (DC) Add. Discharge Instructions: Your potassium is normal today. Please continue dialysis as previously recommended. Your blood pressure is slightly well however you are asymptomatic. Recommend you return to the emergency department if you develop any dizziness lightheadedness chest pain or shortness of breath. Return to the emergency department for any severe concerns. All discharge instructions reviewed with patient and/or family. Voiced understanding. HÉCTOR GREGORIO MD Jun 01, 2022 16:52 RADHA HILLS DO Jun 01, 2022 17:43
[2022-06-01 17:08] LABS: POTASSIUM 4.7 MMOL/L (3.6-5.0)
[2022-06-01 17:09] LABS: CALCIUM 10.3 MG/DL (8.5-10.1)
[2022-06-01 17:14] LABS: CREATININE SERUM 5.24 MG/DL (0.60-1.30)
[2022-06-01 17:48] VITALS: BP 96/65
== END 2022-06-01 17:48 | disposition home or self-care (01) ==
LOC: EDUNIT# 15:52 → ER 15:53
DX: I95.9 Hypotension, unspecified (principal); I12.0 Hypertensive chronic kidney disease with stage 5 chronic kidney disease or end stage renal disease; E11.22 Type 2 diabetes mellitus with diabetic chronic kidney disease; N18.6 End stage renal disease; E11.43 Type 2 diabetes mellitus with diabetic autonomic (poly)neuropathy; K31.84 Gastroparesis; Z99.2 Dependence on renal dialysis
CPT/HCPCS: 36415; 80048; 99282

== ENCOUNTER → 2022-06-02 | Outpatient (CLI) | payer MEDICAID | LOC: WOUNDCARE 09:39 | PROVIDERS: ATTEND Family Medicine | DX: T81.31XA Disruption of external operation (surgical) wound, not elsewhere classified, initial encounter (principal); T83.728A Exposure of other implanted mesh into organ or tissue, initial encounter; E11.22 Type 2 diabetes mellitus with diabetic chronic kidney disease; N18.6 End stage renal disease; Z99.2 Dependence on renal dialysis; D63.1 Anemia in chronic kidney disease; E43 Unspecified severe protein-calorie malnutrition; F70 Mild intellectual disabilities; E66.01 Morbid (severe) obesity due to excess calories; B95.2 Enterococcus as the cause of diseases classified elsewhere; E11.52 Type 2 diabetes mellitus with diabetic peripheral angiopathy with gangrene; I96 Gangrene, not elsewhere classified | CPT/HCPCS: 11042; G0463 ==

== ENCOUNTER → 2022-06-07 | Outpatient (CLI) | payer MEDICAID | LOC: WOUNDCARE 09:32 | PROVIDERS: ATTEND Family Medicine | DX: T81.31XA Disruption of external operation (surgical) wound, not elsewhere classified, initial encounter (principal); T83.728A Exposure of other implanted mesh into organ or tissue, initial encounter; E11.22 Type 2 diabetes mellitus with diabetic chronic kidney disease; N18.6 End stage renal disease; E43 Unspecified severe protein-calorie malnutrition; D63.1 Anemia in chronic kidney disease; F70 Mild intellectual disabilities; E66.01 Morbid (severe) obesity due to excess calories; E11.52 Type 2 diabetes mellitus with diabetic peripheral angiopathy with gangrene; I96 Gangrene, not elsewhere classified; B95.2 Enterococcus as the cause of diseases classified elsewhere; Z68.26 Body mass index [BMI] 26.0-26.9, adult | CPT/HCPCS: 99213 ==

== ENCOUNTER → 2022-06-14 | Outpatient (CLI) | payer MEDICAID | LOC: WOUNDCARE 09:57 | PROVIDERS: ATTEND Family Medicine | DX: T81.31XA Disruption of external operation (surgical) wound, not elsewhere classified, initial encounter (principal); T83.728A Exposure of other implanted mesh into organ or tissue, initial encounter; I96 Gangrene, not elsewhere classified; D63.1 Anemia in chronic kidney disease; N18.6 End stage renal disease; E11.9 Type 2 diabetes mellitus without complications; E43 Unspecified severe protein-calorie malnutrition; F70 Mild intellectual disabilities; E66.01 Morbid (severe) obesity due to excess calories; Z68.26 Body mass index [BMI] 26.0-26.9, adult | CPT/HCPCS: 11042; G0463 ==

== ENCOUNTER → 2022-06-23 | Outpatient (CLI) | payer MEDICAID | LOC: WOUNDCARE 09:16 | PROVIDERS: ATTEND Family Medicine | DX: T81.31XA Disruption of external operation (surgical) wound, not elsewhere classified, initial encounter (principal); T83.728A Exposure of other implanted mesh into organ or tissue, initial encounter; N18.6 End stage renal disease; E11.22 Type 2 diabetes mellitus with diabetic chronic kidney disease; E43 Unspecified severe protein-calorie malnutrition; D63.1 Anemia in chronic kidney disease; F70 Mild intellectual disabilities; E66.01 Morbid (severe) obesity due to excess calories; E11.52 Type 2 diabetes mellitus with diabetic peripheral angiopathy with gangrene | CPT/HCPCS: 11042; 11045; A6212; G0463 ==

== ENCOUNTER → 2022-06-28 | Outpatient (CLI) | payer MEDICAID | LOC: WOUNDCARE 10:07 | PROVIDERS: ATTEND Family Medicine | DX: T81.31XA Disruption of external operation (surgical) wound, not elsewhere classified, initial encounter (principal); T83.728A Exposure of other implanted mesh into organ or tissue, initial encounter; N18.6 End stage renal disease; E11.9 Type 2 diabetes mellitus without complications; E43 Unspecified severe protein-calorie malnutrition; D63.1 Anemia in chronic kidney disease; E66.01 Morbid (severe) obesity due to excess calories; F70 Mild intellectual disabilities | CPT/HCPCS: 11042; 83036; 84134; G0463; 36415 ==

== ENCOUNTER → 2022-07-19 | Outpatient (CLI) | payer MEDICAID | LOC: WOUNDCARE 09:31 | PROVIDERS: ATTEND Family Medicine | DX: T81.31XA Disruption of external operation (surgical) wound, not elsewhere classified, initial encounter (principal); T83.728A Exposure of other implanted mesh into organ or tissue, initial encounter; E11.22 Type 2 diabetes mellitus with diabetic chronic kidney disease; N18.6 End stage renal disease; Z99.2 Dependence on renal dialysis; D63.1 Anemia in chronic kidney disease; E46 Unspecified protein-calorie malnutrition; F70 Mild intellectual disabilities; E66.01 Morbid (severe) obesity due to excess calories; E11.52 Type 2 diabetes mellitus with diabetic peripheral angiopathy with gangrene; I96 Gangrene, not elsewhere classified | CPT/HCPCS: 11042; A6021; A6212; G0463 ==

== ENCOUNTER → 2022-07-26 | Outpatient (CLI) | payer MEDICAID | LOC: WOUNDCARE 09:21 | PROVIDERS: ATTEND Family Medicine | DX: T81.31XA Disruption of external operation (surgical) wound, not elsewhere classified, initial encounter (principal); T83.728A Exposure of other implanted mesh into organ or tissue, initial encounter; N18.6 End stage renal disease; E43 Unspecified severe protein-calorie malnutrition; D63.1 Anemia in chronic kidney disease; F70 Mild intellectual disabilities; E66.01 Morbid (severe) obesity due to excess calories; E11.52 Type 2 diabetes mellitus with diabetic peripheral angiopathy with gangrene | CPT/HCPCS: 11042; A6021; A6212; G0463 ==

== ENCOUNTER → 2022-08-02 | Outpatient (CLI) | payer MEDICAID | LOC: WOUNDCARE 10:03 | PROVIDERS: ATTEND Family Medicine | DX: T81.31XA Disruption of external operation (surgical) wound, not elsewhere classified, initial encounter (principal); T83.728A Exposure of other implanted mesh into organ or tissue, initial encounter; E11.22 Type 2 diabetes mellitus with diabetic chronic kidney disease; N18.6 End stage renal disease; D63.1 Anemia in chronic kidney disease; Z99.2 Dependence on renal dialysis; E66.01 Morbid (severe) obesity due to excess calories; E43 Unspecified severe protein-calorie malnutrition; F70 Mild intellectual disabilities; E11.52 Type 2 diabetes mellitus with diabetic peripheral angiopathy with gangrene; I96 Gangrene, not elsewhere classified | CPT/HCPCS: 11042; G0463 ==

== ENCOUNTER → 2022-08-16 | Outpatient (CLI) | payer MEDICAID | LOC: WOUNDCARE 09:21 | PROVIDERS: ATTEND Family Medicine | DX: T81.31XA Disruption of external operation (surgical) wound, not elsewhere classified, initial encounter (principal); T83.728A Exposure of other implanted mesh into organ or tissue, initial encounter; E11.22 Type 2 diabetes mellitus with diabetic chronic kidney disease; N18.6 End stage renal disease; Z99.2 Dependence on renal dialysis; D63.1 Anemia in chronic kidney disease; E43 Unspecified severe protein-calorie malnutrition; F79 Unspecified intellectual disabilities; E66.01 Morbid (severe) obesity due to excess calories; E11.52 Type 2 diabetes mellitus with diabetic peripheral angiopathy with gangrene; I96 Gangrene, not elsewhere classified | CPT/HCPCS: 11042; A6212; G0463 ==

== ENCOUNTER → 2022-08-23 | Outpatient (CLI) | payer MEDICAID | LOC: WOUNDCARE 09:30 | PROVIDERS: ATTEND Family Medicine | DX: T81.31XA Disruption of external operation (surgical) wound, not elsewhere classified, initial encounter (principal); E11.22 Type 2 diabetes mellitus with diabetic chronic kidney disease; N18.6 End stage renal disease; Z99.2 Dependence on renal dialysis; D63.1 Anemia in chronic kidney disease; E66.01 Morbid (severe) obesity due to excess calories; E43 Unspecified severe protein-calorie malnutrition; F70 Mild intellectual disabilities; E11.52 Type 2 diabetes mellitus with diabetic peripheral angiopathy with gangrene; I96 Gangrene, not elsewhere classified | CPT/HCPCS: 11042; G0463 ==

== ENCOUNTER → 2022-08-31 | Outpatient (CLI) | payer MEDICAID | LOC: WOUNDCARE 14:36 | PROVIDERS: ATTEND Family Medicine | DX: T81.31XA Disruption of external operation (surgical) wound, not elsewhere classified, initial encounter (principal); E11.22 Type 2 diabetes mellitus with diabetic chronic kidney disease; N18.6 End stage renal disease; D63.1 Anemia in chronic kidney disease; E66.01 Morbid (severe) obesity due to excess calories; E44.0 Moderate protein-calorie malnutrition; F70 Mild intellectual disabilities; E11.52 Type 2 diabetes mellitus with diabetic peripheral angiopathy with gangrene; I96 Gangrene, not elsewhere classified | CPT/HCPCS: 11042; G0463 ==

== ENCOUNTER → 2022-09-06 | Outpatient (CLI) | payer MEDICAID | LOC: WOUNDCARE 09:33 | PROVIDERS: ATTEND Family Medicine | DX: T81.31XA Disruption of external operation (surgical) wound, not elsewhere classified, initial encounter (principal); E11.22 Type 2 diabetes mellitus with diabetic chronic kidney disease; N18.6 End stage renal disease; E43 Unspecified severe protein-calorie malnutrition; D63.1 Anemia in chronic kidney disease; F70 Mild intellectual disabilities; E66.01 Morbid (severe) obesity due to excess calories; E11.52 Type 2 diabetes mellitus with diabetic peripheral angiopathy with gangrene | CPT/HCPCS: 11042; A6212; G0463 ==

== ENCOUNTER → 2022-09-13 | Outpatient (CLI) | payer MEDICAID | LOC: WOUNDCARE 09:15 | PROVIDERS: ATTEND Family Medicine | DX: T81.31XA Disruption of external operation (surgical) wound, not elsewhere classified, initial encounter (principal); E11.22 Type 2 diabetes mellitus with diabetic chronic kidney disease; N18.6 End stage renal disease; Z99.2 Dependence on renal dialysis; D63.1 Anemia in chronic kidney disease; E43 Unspecified severe protein-calorie malnutrition; F70 Mild intellectual disabilities; E66.01 Morbid (severe) obesity due to excess calories; E11.52 Type 2 diabetes mellitus with diabetic peripheral angiopathy with gangrene; I96 Gangrene, not elsewhere classified | CPT/HCPCS: 11042; G0463 ==

== ENCOUNTER → 2022-09-20 | Outpatient (CLI) | payer MEDICAID | LOC: WOUNDCARE 09:36 | PROVIDERS: ATTEND Family Medicine | DX: T81.31XA Disruption of external operation (surgical) wound, not elsewhere classified, initial encounter (principal); E11.22 Type 2 diabetes mellitus with diabetic chronic kidney disease; N18.6 End stage renal disease; Z99.2 Dependence on renal dialysis; D63.1 Anemia in chronic kidney disease; E43 Unspecified severe protein-calorie malnutrition; F70 Mild intellectual disabilities; E66.01 Morbid (severe) obesity due to excess calories; E11.52 Type 2 diabetes mellitus with diabetic peripheral angiopathy with gangrene; I96 Gangrene, not elsewhere classified | CPT/HCPCS: 11042; A6212; G0463 ==

== ENCOUNTER 2022-09-21 19:02 | Emergency (ER) | payer MEDICAID ==
[~2022-09-21] VITALS: Ht 172.7 cm; Wt 90.7 kg
--- NOTE | 2022-09-21 19:25 | ED Fall/Injury ---
General Chief Complaint: Trauma-Non Activation Stated Complaint: SEIZURE|FALL|HIT HEAD Nursing Triage Note: PT TO ED BY EMS WITH C/O FALL. EMS REPORTS PT HAD WITNESSED SEIZURE LASTING 4-5 MINUTES, FELL, HIT HEAD ON GROUND. C/O HEAD AND TONGUE PAIN. Source: patient, EMS, RN notes reviewed Exam Limitations: no limitations History of Present Illness Date Seen by Provider: September 21, 2022 Time Seen by Provider: 19:05 Initial Comments 47-year-old male presents to the ER via EMS for a head injury following a seizure. Report from EMS was that the seizure lasted 4 to 5 minutes and it occurred at 5:45 pm. Patient has a history of seizures. He currently takes topiramate for seizures. EMS reports that his last seizure was about 5 months ago. Patient is complaining of a headache and tongue pain. Patient bit his tongue during the seizure. Hematoma noted to left side of head. Past medical history includes diabetes, end-stage renal disease on dialysis, intellectual disability. Patient had dialysis today, he is going to have dialysis again tomorrow, because they did not get enough fluid off. Patient no longer produces urine. Allergies and Home Medications Allergies Coded Allergies: Milk Containing Products (Unverified Allergy, Mild, 07/12/09) sulfamethoxazole (Unverified Allergy, Mild, 07/12/09) trimethoprim (Unverified Allergy, Mild, 07/12/09) Uncoded Allergies: [id number] (CHOCOLATE FLAVOR) (Allergy, Mild, 07/12/09) Patient Home Medication List Home Medication List Reviewed: Yes Acetaminophen (Tylenol Tablet) 325 Mg Tab, 650 MG PO Q6H PRN, (Reported) Entered as Reported by: ANNA PORTILLO on 10/24/121948 Albuterol Sulfate (Ventolin Hfa) 1 Puff Puff, 2 PUFF IH TID, (Reported) Entered as Reported by: ANNA PORTILLO on 10/24/121948 Albuterol Sulfate (Proventil) 0.83 Mg/Ml Solution, 0.83 MG IH TID PRN, (Reported) Entered as Reported by: ANNA PORTILLO on 10/24/121948 Aripiprazole (Abilify 15 Mg) 15 Mg Tab, 1 TAB PO DAILY, (Reported) Entered as Reported by: ANNA PORTILLO on 10/24/121948 Aspirin (Aspirin 81 Mg Chew Tab) 81 Mg Chew, 81 MG PO DAILY, (Reported) Entered as Reported by: ANNA PORTILLO on 10/24/121948 Calcium Acetate (Phoslo) 667 Mg Tablet, 2,668 MG PO AC, (Reported) Entered as Reported by: ANNA PORTILLO on 10/24/121948 Calcium Acetate (Phoslo) 667 Mg Tablet, 1,334 MG PO DAILY, (Reported) Entered as Reported by: ANNA PORTILLO on 10/24/121948 Cefdinir (Cefdinir) 300 Mg Capsule, 300 MG PO UD Prescribed by: SUDHAKAR MAN on 12/01/20 1303 Cetirizine HCl (Zyrtec) 10 Mg Tablet, 10 MG PO HS PRN for ITCHING, (Reported) Entered as Reported by: ANGY ANNA on 09/12/15337 Fluticasone Propionate (Flonase Allergy Relief) 9.9 Ml [place].susp, 9.9 ML NS PRN, (Reported) Entered as Reported by: ANGY ANNA on 09/12/15337 Lactobacillus Acidophilus (Acidophilus) 100 Mg Capsule, 100 MG PO DAILY, (Reported) Entered as Reported by: ANNA PORTILLO on 10/24/121948 Lanthanum Carbonate (Fosrenol) 1,000 Mg Tab.chew, 1,000 MG PO TID, (Reported) Entered as Reported by: ANGY ANNA on 09/12/15337 Lisinopril (Zestril) 20 Mg Tab, 20 MG PO HS, (Reported) Entered as Reported by: ANNA PORTILLO on 10/24/121948 Lorazepam (Ativan) 0.5 Mg Tablet, 0.5 MG PO BID, (Reported) Entered as Reported by: ANNA PORTILLO on 10/24/121948 Mag Hydrox/Al Hydrox/Simeth (Mylanta Liquid) 355 Ml Oral.susp, 20 ML PO Q6H PRN, (Reported) Entered as Reported by: ANNA PORTILLO on 10/24/121948 Menthol/Zinc Oxide (Gold Dang Medicated Body Powdr) 283 Gm Powder, 283 GM TP, (Reported) Entered as Reported by: ANNA PORTILLO on 10/24/121948 Metoclopramide Hcl (Reglan 10 Mg Tab) 10 Mg Tab, 1 EACH PO BID, (Reported) Entered as Reported by: ANNA PORTILLO on 10/24/121948 Metoprolol Tartrate (Metoprolol Tartrate) 50 Mg Tablet, 50 MG PO DAILY, (Reported) Entered as Reported by: ANGY ANNA on 09/12/15337 Ropinirole Hcl (Requip) 0.25 Mg Tab, 1 TAB PO HS, (Reported) Entered as Reported by: ANNA PORTILLO on 10/24/121948 Sodium Bicarbonate (Sodium Bicarbonate) 1 Meq/1 Ml Disp.syrin, 650 MG PO BID, (Reported) Entered as Reported by: ANNA PORTILLO on 10/24/121948 Topiramate (Topamax 100 Mg) 100 Mg Tab, 100 MG PO TID, (Reported) Entered as Reported by: ANNA PORTILLO on 10/24/121948 Tramadol Hcl (Ultram) 50 Mg Tab, 50 MG PO BID, (Reported) Entered as Reported by: ANNA PORTILLO on 10/24/121948 Venlafaxine Hcl (Effexor) 50 Mg Tablet, 0.5 EACH PO BID, (Reported) Entered as Reported by: ANNA PORTILLO on 10/24/121948 [sensipar] , 120 MG PO DAILY, (Reported) Entered as Reported by: ANNA PORTILLO on 10/24/121948 Review of Systems Review of Systems Constitutional: see HPI Past Qrqubqp-Ihrcjf-Jbpywl Hx Patient Social History Tobacco Use?: No Use of E-Cig and/or Vaping dev: No Substance use?: No Alcohol Use?: No Pt feels they are or have been: No Immunizations Up To Date Tetanus Booster (TDap): Less than 5yrs Influenza Vaccine Up-to-Date: No; Not Current First/Initial COVID19 Vaccinat: YES Second COVID19 Vaccination Arnold: YES Third COVID19 Vaccination Date: UNKNOWN Seasonal Allergies Seasonal Allergies: No Past Medical History Surgery/Hospitalization HX: MR, SCHIZOPHRENIA, EXPLOSIVE DISORDER, HTN, GERD, SEIZURES, DM2, RLS, KIDNEY FAILURE, HIGH CHOL, DIALYSIS, C-DIFF, WOUND VAC Surgeries: Yes Bowel Surgery, Vascular Surgery Respiratory: No Cardiac: Yes Hypertension Neurological: Yes Developmental Disorder, Seizure Disorder Reproductive Disorders: No Sexually Transmitted Disease: No HIV/AIDS: No Genitourinary: Yes (End Stage Renal dz) Renal Failure, Dialysis Gastrointestinal: Yes (Gastroparesis ) Diverticulosis Musculoskeletal: Yes Fractures Endocrine: Yes Diabetes, Non-Insulin dep HEENT: Yes Loss of Vision: Bilateral Hearing Impairment: Denies Cancer: No Psychosocial: Yes (Intermittent Explosive Disorder ) Schizophrenia, Violent Behavior Integumentary: No Blood Disorders: No Adverse Reaction/Blood Tranf: No Family Medical History No Pertinent Family Hx, Other Conditions/Hx Physical Exam Vital Signs Vital Signs - First Documented 09/21/22 19:05 Temp 35.9 Pulse 103 Resp 15 B/P (MAP) 100/72 (81) Pulse Ox 97 O2 Delivery Room Air Capillary Refill : Less Than 3 Seconds Height, Weight, BMI Height: 5'11" Weight: 250lbs. oz. 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, alert Skin: normal color, warm/dry Progress/Results/Core Measures Results/Orders Lab Results Laboratory Tests Test 09/21/22 20:25 Range/Units White Blood Count 11.5 H 4.3-11.0 10^3/uL Red Blood Count 4.10 L 4.30-5.52 10^6/uL Hemoglobin 11.9 L 13.3-17.7 g/dL Hematocrit 36 L 40-54 % Mean Corpuscular Volume 87 80-99 fL Mean Corpuscular Hemoglobin 29 25-34 pg Mean Corpuscular Hemoglobin Concent 34 32-36 g/dL Red Cell Distribution Width 17.2 H 10.0-14.5 % Platelet Count 230 130-400 10^3/uL Mean Platelet Volume 11.7 9.0-12.2 fL Immature Granulocyte % (Auto) 0 % Neutrophils (%) (Auto) 80 H 42-75 % Lymphocytes (%) (Auto) 9 L 12-44 % Monocytes (%) (Auto) 8 0-12 % Eosinophils (%) (Auto) 2 0-10 % Basophils (%) (Auto) 1 0-10 % Neutrophils # (Auto) 9.2 H 1.8-7.8 10^3/uL Lymphocytes # (Auto) 1.1 1.0-4.0 10^3/uL Monocytes # (Auto) 0.9 0.0-1.0 10^3/uL Eosinophils # (Auto) 0.2 0.0-0.3 10^3/uL Basophils # (Auto) 0.1 0.0-0.1 10^3/uL Immature Granulocyte # (Auto) 0.1 0.0-0.1 10^3/uL Sodium Level 140 135-145 MMOL/L Potassium Level 4.4 3.6-5.0 MMOL/L Chloride Level 95 L 98-107 MMOL/L Carbon Dioxide Level 27 21-32 MMOL/L Anion Gap 18 H 5-14 MMOL/L Blood Urea Nitrogen 39 H 7-18 MG/DL Creatinine 6.92 H 0.60-1.30 MG/DL Estimat Glomerular Filtration Rate 9 BUN/Creatinine Ratio 6 Glucose Level 86 70-105 MG/DL Calcium Level 9.0 8.5-10.1 MG/DL My Orders Orders - HARDIK REA APRN Ct Head/Cervical Spine Wo (09/21/22 19:20) Cbc With Automated Diff (09/21/22 19:46) Basic Metabolic Panel (09/21/22 19:46) Topamax (09/21/22 19:46) Chest 1 View, Ap/Pa Only (09/21/22 20:41) Vital Signs/I&O 09/21/22 19:05 Temp 35.9 Pulse 103 Resp 15 B/P (MAP) 100/72 (81) Pulse Ox 97 O2 Delivery Room Air Blood Pressure Mean: 81 Progress Progress Note : Progress Note Patient seen and evaluated, resting comfortably in bed, no acute distress. Based on exam and symptoms, CT of head and neck ordered. CBC, BMP, and topiramate level ordered. 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 I looked through the chart to determine this. I saw one note from 2007 that listed pseudoseizures. No other notes since then mentions pseudoseizures CT reviewed. No intracranial hemorrhage. No evidence of large acute territorial ischemia. No acute fracture dislocation of the cervical spine. Awaiting lab results. 2040 CBC reviewed. WBC slightly elevated 11.5, neutrophil percentage slightly elevated 80. Hemoglobin decreased 11.9, hematocrit decreased 36, these are better than labs performed in April 2022. Chest x-ray ordered for elevated WBC. 2099 BMP shows decreased chloride 95, slightly elevated anion gap 18, BUN elevated 39, creatinine elevated 6.92, GFR 9. Patient is having dialysis tomorrow. Topiramate is a send out. 2119 chest x-ray reviewed. Negative for acute cardiopulmonary process. Results discussed with patient and caregiver. Discharge instructions and return precautions provided. Diagnostic Imaging Diagonstic Imaging: CT Plain Films/CT/US/NM/MRI: c-spine, head Comments [facility] [place], [place] NAME: OMARI MILLIGAN [facility] REC#: [id number] PT STATUS: REG ER : 1975 PHYSICIAN: HARDIK REA APRN ADMIT DATE: 09/21/22/ER Signed Date of Exam:09/21/22 CT HEAD/CERVICAL SPINE WO PROCEDURE: CT head and CT cervical spine without contrast. TECHNIQUE: Multiple contiguous axial images were obtained through the brain and cervical spine without the use of intravenous contrast. Sagittal and coronal reformations through the cervical spine were then performed. Auto Exposure Controls were utilized during the CT exam to meet ALARA standards for radiation dose reduction. INDICATION: Fall. Seizure. Head and neck pain. COMPARISON: 03/06/2019. FINDINGS: CT head: No large acute territorial ischemia, mass, or hemorrhage. No midline shift or mass effect. The ventricles, cortical sulci, and basilar cisterns are patent and unremarkable. A scalp contusion is seen overlying the left frontal region. The calvarium is intact. The visualized paranasal sinuses are clear. CT cervical spine: No acute fracture or dislocation is seen in the cervical spine. No focal osseous lesions. There is reversal of the normal lordotic curvature of the cervical spine. Vertebral body heights are well-maintained. The craniocervical junction is well-maintained. Mild degenerative changes are seen in the cervical spine with disc osteophyte complexes and uncovertebral arthropathy. Soft tissues of the neck are unremarkable. IMPRESSION: 1. No hemorrhage or focal intra-axial mass. No CT evidence of large acute territorial ischemia. 2. No acute fracture or dislocation in the cervical spine. 3. Scalp contusion overlying the left frontal region. Dictated by: Dictated on workstation # [id number] Dict: 09/21/221944 Trans: 09/21/221954 [id number] Interpreted by: JOSEPH MCKNIGHT DO Electronically signed by: JOSEPH MCKNIGHT DO 09/21/221954 Diagonstic Imaging: Xray Plain Films/CT/US/NM/MRI: chest Comments [facility] [place] NAME: OMARI MILLIGAN [facility] REC#: [id number] PT STATUS: REG ER : 1975 PHYSICIAN: HARDIK REA APRN ADMIT DATE: 09/21/22/ER Draft Date of Exam:09/21/22 CHEST 1 VIEW, AP/PA ONLY INDICATION: Leukocytosis. EXAMINATION: AP view of the chest was obtained. COMPARISON: Study of 05/09/2021. FINDINGS: Heart size and pulmonary vascularity are within normal limits and the lungs are clear, bilaterally. IMPRESSION: Unremarkable chest. Dictated on workstation # [id number] Dict: 09/21/222110 Trans: 09/21/222116 [facility] [id number] Interpreted by: JESSE WATTS MD Electronically signed by: Departure Impression Primary Impression: Head injury Qualified Codes: S09.90XA - Unspecified injury of head, initial encounter Disposition: HOME, SELF-CARE Condition: Stable Departure-Patient Inst. Decision time for Depature: 21:22 Referrals: AMANDA CHOW MD (PCP/Family) Primary Care Physician Patient Instructions: Head Injury in Adults (DC) Add. Discharge Instructions: Continue taking your home medications as prescribed. Follow-up with your primary care provider. Return to the ER if you experience severe headache, vision changes, recurrent vomiting, difficulty with normal activities, abnormal behavior, difficulty walking, or any other new, concerning, or worsening symptoms. All discharge instructions reviewed with patient and/or family. Voiced understanding. Copy Copies To 1: AMANDA CHOW MD, BRITTANY R APRN September 21, 2022 19:25
--- NOTE | 2022-09-21 19:48 | Diagnostic Imaging Report ---
PROCEDURE: CT head and CT cervical spine without contrast. TECHNIQUE: Multiple contiguous axial images were obtained through the brain and cervical spine without the use of intravenous contrast. Sagittal and coronal reformations through the cervical spine were then performed. Auto Exposure Controls were utilized during the CT exam to meet ALARA standards for radiation dose reduction. INDICATION: Fall. Seizure. Head and neck pain. COMPARISON: 03/06/2019. FINDINGS: CT head: No large acute territorial ischemia, mass, or hemorrhage. No midline shift or mass effect. The ventricles, cortical sulci, and basilar cisterns are patent and unremarkable. A scalp contusion is seen overlying the left frontal region. The calvarium is intact. The visualized paranasal sinuses are clear. CT cervical spine: No acute fracture or dislocation is seen in the cervical spine. No focal osseous lesions. There is reversal of the normal lordotic curvature of the cervical spine. Vertebral body heights are well-maintained. The craniocervical junction is well-maintained. Mild degenerative changes are seen in the cervical spine with disc osteophyte complexes and uncovertebral arthropathy. Soft tissues of the neck are unremarkable. IMPRESSION: 1. No hemorrhage or focal intra-axial mass. No CT evidence of large acute territorial ischemia. 2. No acute fracture or dislocation in the cervical spine. 3. Scalp contusion overlying the left frontal region. Dictated by: Dictated on workstation # [id number]
[2022-09-21 20:32] LABS: BASOPHILS # (AUTO) 0.1 10^3/uL (0.0-0.1); BASOPHILS % (AUTO) 1 % (0-10); EOSINOPHILS # (AUTO) 0.2 10^3/uL (0.0-0.3); EOSINOPHILS % (AUTO) 2 % (0-10); HEMATOCRIT 36 % (40-54); HEMOGLOBIN 11.9 g/dL (13.3-17.7); LYMPHOCYTES # (AUTO) 1.1 10^3/uL (1.0-4.0); LYMPHOCYTES % (AUTO) 9 % (12-44); MEAN CORPUSCULAR HEMOGLOBIN 29 pg (25-34); MEAN CORPUSCULAR HGB CONC 34 g/dL (32-36); MEAN CORPUSCULAR VOLUME 87 fL (80-99); MEAN PLATELET VOLUME 11.7 fL (9.0-12.2); MONOCYTES # (AUTO) 0.9 10^3/uL (0.0-1.0); MONOCYTES % (AUTO) 8 % (0-12); NEUTROPHILS # (AUTO) 9.2 10^3/uL (1.8-7.8); NEUTROPHILS % (AUTO) 80 % (42-75); PLATELET COUNT 230 10^3/uL (130-400); WHITE BLOOD COUNT 11.5 10^3/uL (4.3-11.0)
[2022-09-21 20:44] LABS: POTASSIUM 4.4 MMOL/L (3.6-5.0)
[2022-09-21 20:50] LABS: CREATININE SERUM 6.92 MG/DL (0.60-1.30)
--- NOTE | 2022-09-21 21:17 | Diagnostic Imaging Report ---
INDICATION: Leukocytosis. EXAMINATION: AP view of the chest was obtained. COMPARISON: Study of 05/09/2021. FINDINGS: Heart size and pulmonary vascularity are within normal limits and the lungs are clear, bilaterally. IMPRESSION: Unremarkable chest. Dictated by: Dictated on workstation # [id number]
[2022-09-21 21:33] VITALS: BP 93/63
== END 2022-09-21 21:33 | disposition home or self-care (01) ==
LOC: EDUNIT# 19:02 → ER 19:03
DX: S09.90XA Unspecified injury of head, initial encounter (principal); S00.93XA Contusion of unspecified part of head, initial encounter; G40.909 Epilepsy, unspecified, not intractable, without status epilepticus; I12.0 Hypertensive chronic kidney disease with stage 5 chronic kidney disease or end stage renal disease; E11.22 Type 2 diabetes mellitus with diabetic chronic kidney disease; N18.6 End stage renal disease; E11.43 Type 2 diabetes mellitus with diabetic autonomic (poly)neuropathy; K31.84 Gastroparesis; F79 Unspecified intellectual disabilities; Z99.2 Dependence on renal dialysis; Z79.899 Other long term (current) drug therapy; W19.XXXA Unspecified fall, initial encounter
CPT/HCPCS: 36415; 70450; 71045; 72125; 80048; 80201; 85025

== ENCOUNTER → 2022-09-27 | Outpatient (CLI) | payer MEDICAID | LOC: WOUNDCARE 09:24 | PROVIDERS: ATTEND Family Medicine | DX: T81.31XA Disruption of external operation (surgical) wound, not elsewhere classified, initial encounter (principal); E11.22 Type 2 diabetes mellitus with diabetic chronic kidney disease; N18.6 End stage renal disease; E43 Unspecified severe protein-calorie malnutrition; D63.1 Anemia in chronic kidney disease; F70 Mild intellectual disabilities; E66.01 Morbid (severe) obesity due to excess calories; E11.52 Type 2 diabetes mellitus with diabetic peripheral angiopathy with gangrene | CPT/HCPCS: 11042; A6212; G0463 ==

== ENCOUNTER → 2022-10-06 | Outpatient (CLI) | payer MEDICAID | LOC: WOUNDCARE 09:05 | PROVIDERS: ATTEND Family Medicine | DX: T81.31XA Disruption of external operation (surgical) wound, not elsewhere classified, initial encounter (principal); E11.22 Type 2 diabetes mellitus with diabetic chronic kidney disease; N18.6 End stage renal disease; E43 Unspecified severe protein-calorie malnutrition; D63.1 Anemia in chronic kidney disease; F70 Mild intellectual disabilities; E66.01 Morbid (severe) obesity due to excess calories; E11.52 Type 2 diabetes mellitus with diabetic peripheral angiopathy with gangrene | CPT/HCPCS: 99212 ==

== ENCOUNTER 2022-12-25 16:29 | Emergency (ER) | payer MEDICAID ==
[~2022-12-25] VITALS: Ht 177 cm; Wt 82.0 kg
[2022-12-25 16:53] LABS: BASOPHILS # (AUTO) 0.1 10^3/uL (0.0-0.1); BASOPHILS % (AUTO) 1 % (0-10); EOSINOPHILS # (AUTO) 0.4 10^3/uL (0.0-0.3); EOSINOPHILS % (AUTO) 5 % (0-10); HEMATOCRIT 35 % (40-54); HEMOGLOBIN 11.2 g/dL (13.3-17.7); LYMPHOCYTES # (AUTO) 2.3 10^3/uL (1.0-4.0); LYMPHOCYTES % (AUTO) 27 % (12-44); MEAN CORPUSCULAR HEMOGLOBIN 28 pg (25-34); MEAN CORPUSCULAR HGB CONC 32 g/dL (32-36); MEAN CORPUSCULAR VOLUME 90 fL (80-99); MEAN PLATELET VOLUME 11.6 fL (9.0-12.2); MONOCYTES # (AUTO) 0.8 10^3/uL (0.0-1.0); MONOCYTES % (AUTO) 10 % (0-12); NEUTROPHILS # (AUTO) 4.9 10^3/uL (1.8-7.8); NEUTROPHILS % (AUTO) 58 % (42-75); PLATELET COUNT 184 10^3/uL (130-400); WHITE BLOOD COUNT 8.5 10^3/uL (4.3-11.0)
--- NOTE | 2022-12-25 16:56 | ED Neurological Problem ---
General Chief Complaint: Neurological Problems Stated Complaint: SEIZURE Nursing Triage Note: PT TO [facility] BY [facility] WITH CC OF SEIZURE, HX OF SEIZURES,WITNESSED BY STAFF FROM [place] Source: patient, EMS, caregiver Exam Limitations: no limitations History of Present Illness Date Seen by Provider: Dec 25, 2022 Time Seen by Provider: 16:38 Initial Comments Here by EMS with report of seizure. Patient has history of seizure disorders but its been a while. He has end-stage renal disease as well as schizophrenia and associated medical problems. He has dialysis on Monday, Monday and Monday and has not missed. He has not missed any doses of his medicines and is currently on topiramate 100 mg p.o. 3 times daily. He has had his morning dose and is almost to his afternoon dose now. No recent history of fever or chills. Apparently has been doing well recently. He was with another caregiver and suddenly started to have a seizure and fell to the ground but did not hit his head and no obvious injury or reported injury from caregivers at scene to EMS. EMS reports normal vital signs and no seizures in route but confusion like he is postictal. Patient is waking up now. One of his caregivers that knows him well has arrived. Patient is talking a little bit with her but still seems quite confused. She states he has been doing well and denies any recent changes or injuries. She states that has not had a seizure in some time. He normally would be admitted to [facility] if he has to be admitted due to his end- stage renal disease. He has shunts in both arms but the active one is on the left. Patient was reported to have some blood in his mouth but is not actively bleeding now. Patient is complaining of headache Timing/Duration: 1/2 hour Severity: moderate Associated Symptoms: seizures Allergies and Home Medications Allergies Coded Allergies: Milk Containing Products (Dairy) (Unverified Allergy, Mild, 07/12/09) sulfamethoxazole (Unverified Allergy, Mild, 07/12/09) trimethoprim (Unverified Allergy, Mild, 07/12/09) Uncoded Allergies: [id number] (CHOCOLATE FLAVOR) (Allergy, Mild, 07/12/09) Patient Home Medication List Home Medication List Reviewed: Yes Acetaminophen (Tylenol Tablet) 325 Mg Tab, 650 MG PO Q6H PRN, (Reported) Entered as Reported by: ANNA PORTILLO on 10/24/121948 Albuterol Sulfate (Ventolin Hfa) 1 Puff Puff, 2 PUFF IH TID, (Reported) Entered as Reported by: ANNA PORTILLO on 10/24/121948 Albuterol Sulfate (Proventil) 0.83 Mg/Ml Solution, 0.83 MG IH TID PRN, (Reported) Entered as Reported by: ANNA PORTILOL on 10/24/121948 Aripiprazole (Abilify 15 Mg) 15 Mg Tab, 1 TAB PO DAILY, (Reported) Entered as Reported by: ANNA PORTILLO on 10/24/121948 Aspirin (Aspirin 81 Mg Chew Tab) 81 Mg Chew, 81 MG PO DAILY, (Reported) Entered as Reported by: ANNA PORTILLO on 10/24/121948 Calcium Acetate (Phoslo) 667 Mg Tablet, 2,668 MG PO AC, (Reported) Entered as Reported by: ANNA PORTILLO on 10/24/121948 Calcium Acetate (Phoslo) 667 Mg Tablet, 1,334 MG PO DAILY, (Reported) Entered as Reported by: ANNA PORTILLO on 10/24/121948 Cefdinir (Cefdinir) 300 Mg Capsule, 300 MG PO UD Prescribed by: SUDHAKAR MAN on 12/01/20 1303 Cetirizine HCl (Zyrtec) 10 Mg Tablet, 10 MG PO HS PRN for ITCHING, (Reported) Entered as Reported by: ANGY ANNA on 09/12/15337 Fluticasone Propionate (Flonase Allergy Relief) 9.9 Ml [place].susp, 9.9 ML NS PRN, (Reported) Entered as Reported by: ANGY ANNA on 09/12/15337 Lactobacillus Acidophilus (Acidophilus) 100 Mg Capsule, 100 MG PO DAILY, (Reported) Entered as Reported by: ANNA PORTILLO on 10/24/121948 Lanthanum Carbonate (Fosrenol) 1,000 Mg Tab.chew, 1,000 MG PO TID, (Reported) Entered as Reported by: ANGY ANNA on 09/12/15337 Lisinopril (Zestril) 20 Mg Tab, 20 MG PO HS, (Reported) Entered as Reported by: ANNA PORTILLO on 10/24/121948 Lorazepam (Ativan) 0.5 Mg Tablet, 0.5 MG PO BID, (Reported) Entered as Reported by: ANNA PORTILLO on 10/24/121948 Mag Hydrox/Al Hydrox/Simeth (Mylanta Liquid) 355 Ml Oral.susp, 20 ML PO Q6H PRN, (Reported) Entered as Reported by: ANNA PORTILLO on 10/24/121948 Menthol/Zinc Oxide (Gold Dang Medicated Body Powdr) 283 Gm Powder, 283 GM TP, (Reported) Entered as Reported by: ANNA PORTILLO on 10/24/121948 Metoclopramide Hcl (Reglan 10 Mg Tab) 10 Mg Tab, 1 EACH PO BID, (Reported) Entered as Reported by: ANNA PORTILLO on 10/24/121948 Metoprolol Tartrate (Metoprolol Tartrate) 50 Mg Tablet, 50 MG PO DAILY, (Reported) Entered as Reported by: ANGY ANNA on 09/12/15337 Ropinirole Hcl (Requip) 0.25 Mg Tab, 1 TAB PO HS, (Reported) Entered as Reported by: ANNA PORTILLO on 10/24/121948 Sodium Bicarbonate (Sodium Bicarbonate) 1 Meq/1 Ml Disp.syrin, 650 MG PO BID, (Reported) Entered as Reported by: ANNA PORTILLO on 10/24/121948 Topiramate (Topamax 100 Mg) 100 Mg Tab, 100 MG PO TID, (Reported) Entered as Reported by: ANNA PORTILLO on 10/24/121948 Tramadol Hcl (Ultram) 50 Mg Tab, 50 MG PO BID, (Reported) Entered as Reported by: ANNA PORTILLO on 10/24/121948 Venlafaxine Hcl (Effexor) 50 Mg Tablet, 0.5 EACH PO BID, (Reported) Entered as Reported by: ANNA PORTILLO on 10/24/121948 [sensipar] , 120 MG PO DAILY, (Reported) Entered as Reported by: ANNA PORTILLO on 10/24/121948 Review of Systems Review of Systems Constitutional: see HPI; No chills, No fever Gastrointestinal: No diarrhea, No vomiting Psychiatric/Neurological: Headache, Tonic Clonic Seizures Patient unable to provide answers to review of systems. Positive and negative as reported by caregiver/staff Past Hbnbkcq-Lbbnhg-Blmlvo Hx Immunizations Up To Date Tetanus Booster (TDap): Less than 5yrs First/Initial COVID19 Vaccinat: YES Second COVID19 Vaccination Arnold: YES Third COVID19 Vaccination Date: UNKNOWN Seasonal Allergies Seasonal Allergies: No Past Medical History Surgery/Hospitalization HX: MR, SCHIZOPHRENIA, EXPLOSIVE DISORDER, HTN, GERD, SEIZURES, DM2, RLS, KIDNEY FAILURE, HIGH CHOL, DIALYSIS, C-DIFF, WOUND VAC Surgeries: Yes Bowel Surgery, Vascular Surgery Respiratory: No Cardiac: Yes Hypertension Neurological: Yes Developmental Disorder, Seizure Disorder Reproductive Disorders: No Sexually Transmitted Disease: No HIV/AIDS: No Genitourinary: Yes (End Stage Renal dz) Renal Failure, Dialysis Gastrointestinal: Yes (Gastroparesis ) Diverticulosis Musculoskeletal: Yes Fractures Endocrine: Yes Diabetes, Non-Insulin dep HEENT: Yes Loss of Vision: Bilateral Hearing Impairment: Denies Cancer: No Psychosocial: Yes (Intermittent Explosive Disorder ) Schizophrenia, Violent Behavior Integumentary: No Blood Disorders: No Adverse Reaction/Blood Tranf: No Family Medical History Reviewed Nursing Family Hx No Pertinent Family Hx, Other Conditions/Hx Physical Exam Vital Signs Vital Signs - First Documented 12/25/22 16:34 Temp 35.8 Pulse 92 Resp 18 B/P (MAP) 134/93 (107) Pulse Ox 96 O2 Delivery Room Air Capillary Refill : Less Than 3 Seconds Height, Weight, BMI Height: 5'11" Weight: 250lbs. oz. 113.420928nq; 26.00 BMI Method:Stated General Appearance: WD/WN, no apparent distress HEENT: PERRL/EOMI, pharynx normal, other (No active bleeding) Neck: full range of motion, supple Respiratory: lungs clear, normal breath sounds Cardiovascular: regular rate, rhythm, no murmur Gastrointestinal: non tender, soft, other (Midline scar) Back: normal inspection, no CVA tenderness, no vertebral tenderness Extremities: non-tender, normal inspection Neurologic/Psychiatric: alert, disoriented x 3, other (Answering some simple questions and following some simple commands) Skin: warm/dry, other (Patient with bilateral arms but it seems like the left 1 is active per history and by exam.) Progress/Results/Core Measures Results/Orders Lab Results Laboratory Tests Test 12/25/22 16:45 Range/Units White Blood Count 8.5 4.3-11.0 10^3/uL Red Blood Count 3.95 L 4.30-5.52 10^6/uL Hemoglobin 11.2 L 13.3-17.7 g/dL Hematocrit 35 L 40-54 % Mean Corpuscular Volume 90 80-99 fL Mean Corpuscular Hemoglobin 28 25-34 pg Mean Corpuscular Hemoglobin Concent 32 32-36 g/dL Red Cell Distribution Width 14.5 10.0-14.5 % Platelet Count 184 130-400 10^3/uL Mean Platelet Volume 11.6 9.0-12.2 fL Immature Granulocyte % (Auto) 0 % Neutrophils (%) (Auto) 58 42-75 % Lymphocytes (%) (Auto) 27 12-44 % Monocytes (%) (Auto) 10 0-12 % Eosinophils (%) (Auto) 5 0-10 % Basophils (%) (Auto) 1 0-10 % Neutrophils # (Auto) 4.9 1.8-7.8 10^3/uL Lymphocytes # (Auto) 2.3 1.0-4.0 10^3/uL Monocytes # (Auto) 0.8 0.0-1.0 10^3/uL Eosinophils # (Auto) 0.4 H 0.0-0.3 10^3/uL Basophils # (Auto) 0.1 0.0-0.1 10^3/uL Immature Granulocyte # (Auto) 0.0 0.0-0.1 10^3/uL Sodium Level 144 135-145 MMOL/L Potassium Level 3.9 3.6-5.0 MMOL/L Chloride Level 96 L 98-107 MMOL/L Carbon Dioxide Level 25 21-32 MMOL/L Anion Gap 23 H 5-14 MMOL/L Blood Urea Nitrogen 58 H 7-18 MG/DL Creatinine 11.06 H 0.60-1.30 MG/DL Estimat Glomerular Filtration Rate 5 BUN/Creatinine Ratio 5 Glucose Level 102 70-105 MG/DL Calcium Level 8.0 L 8.5-10.1 MG/DL Corrected Calcium 8.0 L 8.5-10.1 MG/DL Magnesium Level 2.3 1.6-2.4 MG/DL Total Bilirubin 0.4 0.1-1.0 MG/DL Aspartate Amino Transf (AST/SGOT) 10 5-34 U/L Alanine Aminotransferase (ALT/SGPT) 10 0-55 U/L Alkaline Phosphatase 84 40-136 U/L C-Reactive Protein High Sensitivity 1.59 H 0.00-0.50 MG/DL Total Protein 7.9 6.4-8.2 GM/DL Albumin 4.0 3.2-4.5 GM/DL TSH [place] Testing 3.31 0.35-4.94 UIU/ML My Orders Orders - KARLY HERNANDEZ MD Ct Head Wo (12/25/22 16:47) Cbc With Automated Diff (12/25/22 16:47) Comprehensive Metabolic Panel (12/25/22 16:47) Hs C Reactive Protein (12/25/22 16:47) Magnesium (12/25/22 16:47) Thyroid Analyzer (12/25/22 16:47) Ed Iv/Invasive Line Start (12/25/22 16:47) Topiramate Tablet (Topamax Tablet) (12/25/22 17:00) Ankle, Left, 3 Views (12/25/22 17:41) Levetiracetam Injection (Levetiracetam I (12/25/22 17:43) Fentanyl Injection (Fentanyl Injection (12/25/22 18:12) Medications Given in ED Current Medications Medications Dose Ordered Sig/Agata Route Start Time Stop Time Status Last Admin Dose Admin Topiramate 100 mg ONCE ONCE PO 12/25/22 17:00 12/25/22 17:01 DC 12/25/22 17:05 100 MG Vital Signs/I&O 12/25/22 16:34 Temp 35.8 Pulse 92 Resp 18 B/P (MAP) 134/93 (107) Pulse Ox 96 O2 Delivery Room Air Blood Pressure Mean: 107 Progress Progress Note : Progress Note Seen and evaluated. IV established to the right arm and we will check labs including CBC, CMP, magnesium and thyroid studies. We will give dose of topiramate 100 mg p.o. now with consideration for Keppra 500 mg to 1000 mg IV if he has a seizure. We will go ahead and get CT of the head as he has fallen and he is complaining of headache. Patient. Differential diagnosis includes intracranial hemorrhage, breakthrough seizure, electrolyte abnormality 1729: CBC reviewed and shows slightly low hemoglobin but otherwise no acute findings. CMP shows potassium and elevated serum creatinine of 11. He is due for dialysis tomorrow. TSH is pending. CT of the head has finding of subdural hematoma midline without shift as noted by radiology and discussed with radiology. Patient will require transfer. His typical center is [facility] in [facility]. I will call for transfer. 1738: I have left message with [facility] transfer [facility] to call back. Patient is complaining of headache. Current vital signs show blood pressure of 102/82 and heart rate of 82 and he is awake and talking but complaining of headache. He is now complaining of left ankle pain so we will x-ray that pending transfer. 1800: I have spoken with Dr. Cedillo, on-call neurosurgeon at [facility] and she will see the patient in the ER there. I spoke with the ER doctor, Dr. Myers who is accepted the patient for transfer to their facility. Go ER to ER. We have a EMT advance crew that is able to take the patient. I did order and patient is receiving Keppra 500 mg IV. I did discuss this dose with Dr. Cedillo. We could go to 1000 although her crew is not able to manage the medicine and she is okay given the remainder dose at their facility. We will call for EMS transport now. Caregiver informed. I did discuss this with the patient who agreed to transfer as well. I have reviewed the left ankle x-ray and see no acute fracture. We have clouded films for both CT of the head and x- ray of the ankle to [facility]. 1814: We will go ahead and give fentanyl 50 mcg IV for headache pending crew arrival. Diagnostic Imaging Diagonstic Imaging: CT Plain Films/CT/US/NM/MRI: head Comments [facility], [place] NAME: OMARI MILLIGAN [facility] REC#: [id number] PT STATUS: REG ER : 1975 PHYSICIAN: KARLY HERNANDEZ MD ADMIT DATE: 12/25/22/ER Draft Date of Exam:12/25/22 CT HEAD WO PROCEDURE: CT head without contrast. TECHNIQUE: Multiple contiguous axial images were obtained through the brain without the use of intravenous contrast. Auto Exposure Controls were utilized during the CT exam to meet ALARA standards for radiation dose reduction. INDICATION: Seizure. Fall with traumatic injury to the head. COMPARISON: 09/21/2022. FINDINGS: Acute subdural hemorrhage is identified tracking along the falx. At its widest, it measures approximately 5 to 6 mm in thickness. There is no underlying significant mass effect or midline shift. Ventricles and cortical sulci remain stable in size and contour. There is no large area of loss of normal mercado-white matter junction differentiation to suggest evolving acute territorial infarct. Bony calvarium is intact. Visualized portions of paranasal sinuses and mastoid air cells are clear. IMPRESSION: 1. Acute subdural hemorrhage, as above. No significant mass effect or midline shift. 2. No evidence of acute infarct. Report was called to [facility] [place] ER at 5:25 p.m., by rosalino. Dictated on workstation # [id number] Dict: 12/25/22 1721 Trans: 12/25/22 1730 [id number] Interpreted by: JUAN ANTON MD Electronically signed by: Departure Impression Primary Impression: Subdural hematoma Additional Impression: Seizure disorder Disposition: XFER SHT-TRM HOSP Condition: Stable Transfer Transfer Reason: Exceeds level of care Time Spoke to Accepting Phy: 18:02 Transfer Progress Notes [place], [place], Dr. Myers accepting ER to ER Departure-Patient Inst. Referrals: AMANDA CHOW MD (PCP/Family) Primary Care Physician KARLY HERNANDEZ MD Dec 25, 2022 16:55
[2022-12-25] MEDS ORDERED: toPIRamate 100 MG (TOPAMAX) TAB PO ONE (17:00)
[2022-12-25 17:15] LABS: BILIRUBIN,TOTAL 0.4 MG/DL (0.1-1.0); CREATININE SERUM 11.06 MG/DL (0.60-1.30); MAGNESIUM 2.3 MG/DL (1.6-2.4); POTASSIUM 3.9 MMOL/L (3.6-5.0); TOTAL PROTEIN 7.9 GM/DL (6.4-8.2)
--- NOTE | 2022-12-25 17:31 | Diagnostic Imaging Report ---
PROCEDURE: CT head without contrast. TECHNIQUE: Multiple contiguous axial images were obtained through the brain without the use of intravenous contrast. Auto Exposure Controls were utilized during the CT exam to meet ALARA standards for radiation dose reduction. INDICATION: Seizure. Fall with traumatic injury to the head. COMPARISON: 09/21/2022. FINDINGS: Acute subdural hemorrhage is identified tracking along the falx. At its widest, it measures approximately 5 to 6 mm in thickness. There is no underlying significant mass effect or midline shift. Ventricles and cortical sulci remain stable in size and contour. There is no large area of loss of normal mercado-white matter junction differentiation to suggest evolving acute territorial infarct. Bony calvarium is intact. Visualized portions of paranasal sinuses and mastoid air cells are clear. IMPRESSION: 1. Acute subdural hemorrhage, as above. No significant mass effect or midline shift. 2. No evidence of acute infarct. Report was called to [facility] ER at 5:25 p.m., by rosalino. Dictated by: Dictated on workstation # [id number]
[2022-12-25 17:35] LABS: TSH (THYROID ANALYZER) 3.31 UIU/ML (0.35-4.94)
[2022-12-25] MEDS ORDERED: LevETIRAcetam INJECTION 500 MG in NS (IVPB) 100 ML 100 ML IV STA (17:43)
--- NOTE | 2022-12-25 18:09 | Diagnostic Imaging Report ---
INDICATION: Ankle pain. COMPARISON: None. FINDINGS: Three views of the left ankle were obtained. There is no acute fracture or dislocation. No focal osseous lesion is seen. The surrounding soft tissue structures are unremarkable. There is no radiopaque foreign body. Note is made of pes planus deformity. There is also advanced calcified arterial sclerosis. IMPRESSION: No acute fracture or dislocation in the left ankle. Dictated by: Dictated on workstation # [id number]
[2022-12-25] MEDS ORDERED: fentaNYL INJECTION 100 MCG/2 ML VIAL IVP STA (18:12)
[2022-12-25 18:50] VITALS: BP 123/78
== END 2022-12-25 18:50 | disposition short-term general hospital (02) ==
LOC: EDUNIT# 16:29 → ER 16:30
DX: S06.5XAA Traumatic subdural hemorrhage with loss of consciousness status unknown, initial encounter (principal); G40.909 Epilepsy, unspecified, not intractable, without status epilepticus; I12.0 Hypertensive chronic kidney disease with stage 5 chronic kidney disease or end stage renal disease; E11.22 Type 2 diabetes mellitus with diabetic chronic kidney disease; N18.6 End stage renal disease; Z99.2 Dependence on renal dialysis; W18.30XA Fall on same level, unspecified, initial encounter
CPT/HCPCS: 36415; 70450; 73610; 80053; 83735; 84443; 85025; 86141

== ENCOUNTER → 2023-03-07 | Outpatient (CLI) | payer MEDICAID ==
--- NOTE | 2023-03-07 10:33 | Diagnostic Imaging Report ---
PROCEDURE: CT head without contrast. TECHNIQUE: Multiple contiguous axial images were obtained through the brain without the use of intravenous contrast. Auto Exposure Controls were utilized during the CT exam to meet ALARA standards for radiation dose reduction. INDICATION: Seizure, convulsions, unsteady gait. Comparison: CT of the head 12/25/2022. FINDINGS: The brain parenchyma is normal in attenuation. No intra- or extra-axial mass or fluid collection. No acute hemorrhage. The ventricles are normal in size, shape, and morphology. The mercado-white matter junction is normal. The subarachnoid cisterns are patent. The visualized paranasal sinuses are normal. The visualized portions of the orbits and globes are normal. The mastoid air cells are clear. The management specialist topogram shows no lytic lesion or fracture. Impression: No acute intracranial process. Dictated by: Dictated on workstation # [id number]
== END ==
LOC: RAD 09:45
PROVIDERS: ATTEND Specialist
DX: R56.9 Unspecified convulsions (principal)
CPT/HCPCS: 70450